=== PATIENT | female | born 1960 | race Caucasian/White ===

== ENCOUNTER 2017-02-11 06:59 | Emergency (ER) | payer MEDICAID ==
[2017-02-11] MEDS ORDERED: LORazepam 1 MG TAB PO ONE (07:03)
--- NOTE | 2017-02-11 07:05 | EDPHY ---
H & P HPI/ROS: CHIEF COMPLAINT: Anxiety HISTORY OF PRESENT ILLNESS: the patient is a 56-year-old homeless alcoholic female with a history of depression and anxiety who comes to the emergency department by EMS complaining of an anxiety attack and hyperventilation. She has had the symptoms for about 2 hours. She states that they days began bothering her last night and that she did not sleep up. She denies recent fevers or illness. She denies shortness of breath. She does complain of diffuse body cramping from the hyperventilation. She was successfully coached down by EMS and some of the symptoms improved but tend to fluctuate. She denies chest pain or abdominal pain. she does admit to drinking yesterday but denies any drug or alcohol use today. REVIEW OF SYSTEMS: Constitutional: denies: chills, fever, recent illness, recent injury EENTM: denies: blurred vision, double vision, nose congestion Respiratory: denies: cough, shortness of breath Cardiac: denies: chest pain, irregular heart rate, lightheadedness, palpitations Gastrointestinal/Abdominal: denies: abdominal pain, diarrhea, nausea, vomiting, blood streaked stools Genitourinary: denies: dysuria, frequency, hematuria, pain Musculoskeletal: denies: joint pain, muscle pain Skin: denies: lesions, rash, jaundice, bruising Neurological: denies: headache, numbness, paresthesia, tingling, dizziness, weakness Hematologic/Lymphatic: denies: blood clots, easy bleeding, easy bruising Immunologic/allergic: denies: HIV/AIDS, transplant EXAM: GENERAL: Anxious, hyperventilating, tachycardic HEAD: Atraumatic, normocephalic. EYES: Pupils equal round and reactive to light, extraocular movements intact, sclera anicteric, conjunctiva are normal. ENT: TMs normal, nares patent, oropharynx clear without exudates. Moist mucous membranes. NECK: Normal range of motion, supple without lymphadenopathy or JVD. LUNGS: Breath sounds clear to auscultation bilaterally and equal. No wheezes rales or rhonchi. HEART: Regular rate and rhythm without murmurs, rubs or gallops. ABDOMEN: Soft, nontender, normoactive bowel sounds. No guarding, no rebound. No masses appreciated. BACK: No CVA tenderness, no spinal tenderness, step-offs or deformities EXTREMITIES: Normal range of motion, no pitting or edema. No clubbing or cyanosis. NEUROLOGICAL: Cranial nerves II through XII grossly intact. Normal speech, normal gait. 5/5 strength, normal movement in all extremities, normal sensation PSYCH: a anxious SKIN: Warm, dry, normal turgor, no visible rashes or lesions. Source: Patient Exam Limitations: No limitations - Personal History Tetanus Vaccine Date: within 5 yrs - Medical/Surgical History Hx Asthma: No Hx Chronic Respiratory Disease: No Hx Diabetes: No Hx Cardiac Disease: Yes Hx Renal Disease: No Hx Cirrhosis: No Hx Alcoholism: Yes Hx HIV/AIDS: No Hx Splenectomy or Spleen Trauma: No Other PMH: PMH: [place] 10 y.a., ETOH abuse, PSYCH. PSH: C-SECT,ortho knee surg - Family History Significant Family History: No pertinent family hx - Social History Smoking Status: Current every day smoker Alcohol Use: Heavy Drug Use: Marijuana Constitutional: Initial Vital Signs Heart Rate 131 H 02/11/17 07:05 Respiratory Rate 30 H 02/11/17 07:05 Blood Pressure 172/120 H 02/11/17 07:05 O2 Sat (%) 100 02/11/17 07:05 O2 Delivery Mode Room Air Allergies/Adverse Reactions: No Known Allergies Allergy (Verified 04/06/15 12:32) Home Medications: Medication Instructions Recorded Ibuprofen [Motrin (*)] 200 mg PO DAILY PRN 12/08/15 Ibuprofen [Motrin (*)] 400 mg PO Q6 PRN #0 tab 12/09/15 LORazepam [Ativan (*)] 1 tab PO Q8 PRN #7 tab 12/09/15 Ondansetron Odt [Zofran Odt 4 mg 4 mg PO Q4 PRN #3 tab 12/09/15 (*)] Gabapentin 02/11/17 Wellbutrin Sr 02/11/17 traZODone 02/11/17 Medical Decision Making ED Course/Re-evaluation: 8:00 a.m. the patient is sleeping but arousable after 2 mg of Ativan. She is still mildly tachycardic . We will continue to hydrate. 8:25 a.m. the patient is feeling completely better. She is awake and talkative. No more hyper ventilations. No tremors. Her vital signs have normalized. She is asking to go home. I will not prescribe bursitis to take at home as IM concerned that she will mix them with alcohol. Differential Diagnosis: Partial list of the Differential diagnosis considered include but were not limited to; anxiety, alcohol withdrawal, dehydration and although unlikely based on the history and physical exam, I also considered infection, arrhythmia. I discussed these differential diagnoses and the plan with the patient as well as the usual and expected course. The patient understands that the diagnosis is provisional and that in medicine we are not always correct and that further workup is often warranted. Usual and customary warnings were given. All of the patient's questions were answered. The patient was instructed to return to the emergency department should the symptoms at all worsen or return, otherwise to followup with the physician as we discussed. - Data Points Medications Given: Discontinued Medications Sodium Chloride (Ns) 2,000 mls @ 0 mls/hr IV EDNOW ONE; Wide Open PRN Reason: Protocol Stop: 02/11/17 08:16 Last Admin: 02/11/17 07:15 Dose: 2,000 mls Lorazepam (Ativan) 2 mg PO EDNOW ONE Stop: 02/11/17 07:04 Last Admin: 02/11/17 07:20 Dose: 2 mg Departure - Departure Disposition: Home, Routine, Self-Care Clinical Impression: Anxiety Condition: Fair Instructions: Anxiety (ED) Referrals: Patient,NotPresent [Unknown] - As per Instructions [facility],. [Clinic] - As per Instructions
[2017-02-11] MEDS ORDERED: LORazepam 2 MG/ML INJ ONE (07:07)
[2017-02-11] MEDS ORDERED: NS 2,000 ML IV ONE (08:15)
[2017-02-11 08:43] VITALS: BP 95/69; PULSE 110; RESP 18; TEMP 97.7; O2SAT 98
== END 2017-02-11 08:43 | disposition home or self-care (01) ==
LOC: EDUNIT#
DX: F41.9 Anxiety disorder, unspecified (principal); I25.2 Old myocardial infarction; F17.200 Nicotine dependence, unspecified, uncomplicated
CPT/HCPCS: J2060

== ENCOUNTER 2017-02-15 15:58 | Emergency (ER) | payer MEDICAID ==
[2017-02-15 17:32] VITALS: PULSE 97
--- NOTE | 2017-02-15 17:33 | EDPHY ---
H & P Time Seen by Provider: 02/15/17 17:00 Smoking Status: Current every day smoker Constitutional: Initial Vital Signs Temperature (C) 36.4 C 02/15/17 16:05 Heart Rate 92 02/15/17 16:05 Respiratory Rate 16 02/15/17 16:05 Blood Pressure 99/64 L 02/15/17 16:05 O2 Sat (%) 97 02/15/17 16:05 O2 Delivery Mode Room Air Allergies/Adverse Reactions: No Known Allergies Allergy (Verified 02/15/17 16:03) Home Medications: Medication Instructions Recorded Ibuprofen [Motrin (*)] 200 mg PO DAILY PRN 12/08/15 Ibuprofen [Motrin (*)] 400 mg PO Q6 PRN #0 tab 12/09/15 LORazepam [Ativan (*)] 1 tab PO Q8 PRN #7 tab 12/09/15 Ondansetron Odt [Zofran Odt 4 mg 4 mg PO Q4 PRN #3 tab 12/09/15 (*)] Gabapentin 02/11/17 Wellbutrin Sr 02/11/17 MDM/Departure - MDM Imaging Results: Imaging Impressions Hand X-Ray 02/15/17 16:08 Impression: Acute minimally angulated distal fifth metacarpal fracture. Shoulder X-Ray 02/15/17 16:08 Impression: 1. Nondisplaced greater tuberosity fracture right humeral head. 2. Old/subacute distal right clavicle fracture. 3. Age indeterminate type II AC separation. - Depart Referrals: NONE *PRIMARY CARE P,. [Primary Care Provider] - As per Instructions
--- NOTE | 2017-02-15 17:45 | EDPHY ---
H & P Stated Complaint: pt punched a tree with r hand yesterday Time Seen by Provider: 02/15/17 17:00 HPI/ROS: CHIEF COMPLAINT: right hand pain, right shoulder pain HISTORY OF PRESENT ILLNESS: [id number] homeless female presents emergency department complaining of right hand pain and right shoulder pain. Patient reports yesterday she got mad and punched a tree and fell onto her shoulder. She denies head strike, no loss of consciousness, no neck pain. Patient reports pain with movement of her hand and shoulder that is not improving. Patient states she is taking Tylenol and Aleve with mild relief. She drink a shot of alcohol today to help with pain control. She denies numbness or tingling in her hand. Her primary care doctor is Dr. Hayden. REVIEW OF SYSTEMS: A comprehensive 10 point review of systems is otherwise negative aside from elements mentioned in the history of present illness. Source: Patient Exam Limitations: No limitations - Personal History Current Tetanus/Diphtheria Vaccine: Yes Tetanus Vaccine Date: within 5 yrs - Medical/Surgical History Hx Asthma: No Hx Chronic Respiratory Disease: No Hx Diabetes: No Hx Cardiac Disease: No Hx Renal Disease: No Hx Cirrhosis: No Hx Alcoholism: Yes Hx HIV/AIDS: No Hx Splenectomy or Spleen Trauma: No Other PMH: PMH: [place] 10 y.a., ETOH abuse, PSYCH. PSH: C-SECT,ortho knee surg - Social History Smoking Status: Current every day smoker Alcohol Use: Occasionally Drug Use: None - Physical Exam Exam: GEN: Awake, alert, oriented, no acute distress RESP: nl resp effort MSK: No C-spine tenderness, Right shoulder with decreased range of motion due to pain, tenderness to lateral shoulder, ecchymosis to inner arm. No elbow tenderness, no wrist tenderness, tenderness to 5th metacarpal with swelling, patient is able to make a fist, no scissoring of fingers, cap refill less than 2 seconds, sensation intact to light touch, 2+ radial pulses SKIN: No break in skin Constitutional: Initial Vital Signs Temperature (C) 36.4 C 02/15/17 16:05 Heart Rate 92 02/15/17 16:05 Respiratory Rate 16 02/15/17 16:05 Blood Pressure 99/64 L 02/15/17 16:05 O2 Sat (%) 97 02/15/17 16:05 O2 Delivery Mode Room Air Allergies/Adverse Reactions: No Known Allergies Allergy (Verified 02/15/17 16:03) Home Medications: Medication Instructions Recorded Ibuprofen [Motrin (*)] 200 mg PO DAILY PRN 12/08/15 Ibuprofen [Motrin (*)] 400 mg PO Q6 PRN #0 tab 12/09/15 LORazepam [Ativan (*)] 1 tab PO Q8 PRN #7 tab 12/09/15 Ondansetron Odt [Zofran Odt 4 mg 4 mg PO Q4 PRN #3 tab 12/09/15 (*)] Gabapentin 02/11/17 Wellbutrin Sr 02/11/17 Medical Decision Making - Diagnostics Imaging Results: Imaging Impressions Hand X-Ray 02/15/17 16:08 Impression: Acute minimally angulated distal fifth metacarpal fracture. Shoulder X-Ray 02/15/17 16:08 Impression: 1. Nondisplaced greater tuberosity fracture right humeral head. 2. Old/subacute distal right clavicle fracture. 3. Age indeterminate type II AC separation. Imaging: I viewed and interpreted images myself Procedures: A ulnar gutter Ortho Glass splint was applied. After application of the splint , I returned and re-examined the patient. The splint was adequately immobilizing the joint. The patients circulation and sensation were intact distal to the splint. ED Course/Re-evaluation: 56-year-old female presents with a boxer's fracture to right hand in greater tuberosity fracture of right shoulder. Right metacarpal fracture was manually manipulated to attain better alignment. Patient refused lidocaine for anesthesia prior to this. She tolerated it well. Patient is placed in an ulnar gutter splint and a sling. She sees Dr. Charlie Hayden at [facility]. Patient is given instructions to call Dr. Hayden 1st thing Friday morning to schedule an appointment to be seen. I have recommended rest, ice, keep splint in place, clean and dry until follow-up. Have recommended [id number] Tylenol with ibuprofen. Patient is given a Nadeau prepack. She is given strict return precautions for any numbness or tingling in her hand or arm, any new symptoms or concerns. Patient reports nausea with the pain and is requesting nausea medication. I will discharge her with a Zofran prepack. Departure - Departure Disposition: Home, Routine, Self-Care Clinical Impression: Fracture of metacarpal base of right hand, closed Qualifiers: Encounter type: initial encounter Metacarpal bone: fifth Fracture alignment: displaced Qualified Code(s): S62.316A - Displaced fracture of base of fifth metacarpal bone, right hand, initial encounter for closed fracture Fracture of greater tuberosity of humerus Qualifiers: Encounter type: initial encounter Fracture type: closed Fracture alignment: nondisplaced Laterality: right Qualified Code(s): S42.254A - Nondisplaced fracture of greater tuberosity of right humerus, initial encounter for closed fracture Condition: Good Instructions: Hydrocodone/Acetaminophen (By mouth), Boxer Fracture (ED), Proximal Humerus Fracture (ED), Ondansetron (By mouth) Additional Instructions: Keep splint on your hand, clean and dry. Wear sling. Call Dr. Hayden is office Friday morning to schedule an appointment to be seen at 1st available. Do not use your right arm. Take 600 mg of ibuprofen every 8 hours with food for 3-5 days, take 1/2 to 1 Nadeau every 4-6 hours as needed for severe pain. Return to the emergency department for any numbness or tingling in your arm, new symptoms or concerns. Referrals: Callie Hayden MD [Medical Doctor] - As per Instructions
[2017-02-15] MEDS ORDERED: ONDANSETRON DISINTEGRATING 4 MG TAB PO ONE (17:52)
[2017-02-15] MEDS ORDERED: HYDROCOD/APAP 5/325 PREPACK#6 BTL TAKEHOME ONE (17:52)
[2017-02-15] MEDS ORDERED: ONDANSETRON 4MG PREPACK#2 BTL TAKEHOME ONE (17:52)
[2017-02-15 18:22] VITALS: BP 120/90; RESP 16; TEMP 98.1; O2SAT 94
== END 2017-02-15 18:22 | disposition home or self-care (01) ==
PROC: 2W3EX1Z Immobilization of Right Hand using Splint (ICD-10-PCS; principal; 2017-02-15)
DX: S62.316A Displaced fracture of base of fifth metacarpal bone, right hand, initial encounter for closed fracture (principal); S42.254A Nondisplaced fracture of greater tuberosity of right humerus, initial encounter for closed fracture; F17.200 Nicotine dependence, unspecified, uncomplicated; I25.2 Old myocardial infarction; W18.00XA Striking against unspecified object with subsequent fall, initial encounter

== ENCOUNTER 2017-02-19 16:57 | Emergency (ER) | payer MEDICAID ==
[2017-02-19 17:06] VITALS: BP 141/99; PULSE 106; RESP 16; TEMP 98.6; O2SAT 95
--- NOTE | 2017-02-19 17:25 | EDPHY ---
H & P Stated Complaint: MED CLEAR Time Seen by Provider: 02/19/17 17:21 HPI/ROS: CHIEF COMPLAINT: Med clear for shelter HISTORY OF PRESENT ILLNESS: Patient is a 56-year-old homeless female who is brought by police for medical clearance. She was arrested today and is complaining of right arm pain. She was seen here 5 days ago and had a boxer's fracture from punching a tree and then falling down and causing a greater tuberosity fracture of her humerus. She was placed in a splint. The splint is now very torn and dirty. She is not wearing her sling. REVIEW OF SYSTEMS: Constitutional: denies: chills, fever, recent illness, recent injury EENTM: denies: blurred vision, double vision, nose congestion Respiratory: denies: cough, shortness of breath Cardiac: denies: chest pain, irregular heart rate, lightheadedness, palpitations Gastrointestinal/Abdominal: denies: abdominal pain, diarrhea, nausea, vomiting, blood streaked stools Genitourinary: denies: dysuria, frequency, hematuria, pain Musculoskeletal: See HPI Skin: denies: lesions, rash, jaundice, bruising Neurological: denies: headache, numbness, paresthesia, tingling, dizziness, weakness Hematologic/Lymphatic: denies: blood clots, easy bleeding, easy bruising Immunologic/allergic: denies: HIV/AIDS, transplant EXAM: GENERAL: Thin, disheveled HEAD: Atraumatic, normocephalic. EYES: Pupils equal round and reactive to light, extraocular movements intact, sclera anicteric, conjunctiva are normal. ENT: TMs normal, nares patent, oropharynx clear without exudates. Moist mucous membranes. NECK: Normal range of motion, supple without lymphadenopathy or JVD. LUNGS: Breath sounds clear to auscultation bilaterally and equal. No wheezes rales or rhonchi. HEART: Regular rate and rhythm without murmurs, rubs or gallops. ABDOMEN: Soft, nontender, normoactive bowel sounds. No guarding, no rebound. No masses appreciated. BACK: No CVA tenderness, no spinal tenderness, step-offs or deformities EXTREMITIES: Right shoulder with bruising but full range of motion. No tenderness. Right hand in splint that is very dirty and tangled. Neurovascular intact. NEUROLOGICAL: Cranial nerves II through XII grossly intact. Normal speech, normal gait. 5/5 strength, normal movement in all extremities, normal sensation PSYCH: Normal mood, normal affect. SKIN: Warm, dry, normal turgor, no visible rashes or lesions. Source: Patient, Police - Personal History Current Tetanus/Diphtheria Vaccine: Yes Current Tetanus Diphtheria and Acellular Pertussis (TDAP): Yes Tetanus Vaccine Date: within 5 yrs - Medical/Surgical History Hx Asthma: No Hx Chronic Respiratory Disease: No Hx Diabetes: No Hx Cardiac Disease: No Hx Renal Disease: No Hx Cirrhosis: No Hx Alcoholism: Yes Hx HIV/AIDS: No Hx Splenectomy or Spleen Trauma: No Other PMH: PMH: [place] 10 y.a., ETOH abuse, PSYCH. PSH: C-SECT,ortho knee surg - Family History Significant Family History: No pertinent family hx - Social History Smoking Status: Current every day smoker Alcohol Use: Sober Drug Use: None Constitutional: Initial Vital Signs Temperature (C) 37 C 02/19/17 17:04 Heart Rate 106 H 02/19/17 17:04 Respiratory Rate 16 02/19/17 17:04 Blood Pressure 141/99 H 02/19/17 17:04 O2 Sat (%) 95 02/19/17 17:04 O2 Delivery Mode Room Air Allergies/Adverse Reactions: No Known Allergies Allergy (Verified 02/15/17 16:03) Home Medications: Medication Instructions Recorded Ibuprofen [Motrin (*)] 200 mg PO DAILY PRN 12/08/15 Ibuprofen [Motrin (*)] 400 mg PO Q6 PRN #0 tab 12/09/15 LORazepam [Ativan (*)] 1 tab PO Q8 PRN #7 tab 12/09/15 Ondansetron Odt [Zofran Odt 4 mg 4 mg PO Q4 PRN #3 tab 12/09/15 (*)] Gabapentin 02/11/17 Wellbutrin Sr 02/11/17 Medical Decision Making Procedures: Procedure: Splint placement. A ulnar gutter splint and sling was applied. After application of the splint I returned and re-examined the patient. The splint was adequately immobilizing the joint and distal to the splint the patient's circulation and sensation was intact. ED Course/Re-evaluation: The patient has no new injuries at this time. We will replace her hand splint and shoulder sling. She understands and agrees with this plan. She will then go to shelter. Differential Diagnosis: Partial list of the Differential diagnosis considered include but were not limited to; fracture, contusion, dislocation, intoxication and although unlikely based on the history and physical exam, I also considered head injury, assault. I discussed these differential diagnoses and the plan with the patient as well as the usual and expected course. The patient understands that the diagnosis is provisional and that in medicine we are not always correct and that further workup is often warranted. Usual and customary warnings were given. All of the patient's questions were answered. The patient was instructed to return to the emergency department should the symptoms at all worsen or return, otherwise to followup with the physician as we discussed. Departure - Departure Disposition: Home, Routine, Self-Care Clinical Impression: Boxers fracture Qualifiers: Encounter type: initial encounter Fracture type: closed Qualified Code(s): S62.309A - Unspecified fracture of unspecified metacarpal bone, initial encounter for closed fracture Closed right humeral fracture Qualifiers: Encounter type: initial encounter Humerus Location: greater tuberosity Fracture alignment: nondisplaced Qualified Code(s): S42.254A - Nondisplaced fracture of greater tuberosity of right humerus, initial encounter for closed fracture Condition: Fair Instructions: Arm Fracture in Adults (ED), Boxer Fracture (ED) Additional Instructions: Medically cleared for shelter Referrals: NONE *PRIMARY CARE P,. [Primary Care Provider] - As per Instructions Raymon Garcia MD [Medical Doctor] - As per Instructions
== END 2017-02-19 17:50 | disposition home or self-care (01) ==
DX: S42.254D Nondisplaced fracture of greater tuberosity of right humerus, subsequent encounter for fracture with routine healing (principal); S62.309D Unspecified fracture of unspecified metacarpal bone, subsequent encounter for fracture with routine healing; F17.200 Nicotine dependence, unspecified, uncomplicated; I25.2 Old myocardial infarction; X58.XXXD Exposure to other specified factors, subsequent encounter
CPT/HCPCS: A4565

== ENCOUNTER 2017-03-25 00:35 | Emergency (ER) | payer MEDICAID ==
[2017-03-25] MEDS ORDERED: ONDANSETRON 4 MG/2 ML VIAL IVP ONE (00:38)
[2017-03-25] MEDS ORDERED: NS 1,000 ML IV ONE (00:39)
--- NOTE | 2017-03-25 00:43 | EDPHY ---
H & P HPI/ROS: HPI CHIEF COMPLAINT: Alcohol intoxication HISTORY OF PRESENT ILLNESS: This patient 56-year-old female, well-known to the emergency room, brought in by EMS for alcohol intoxication. EMS was called to the [facility] as she was unable to ambulate was acting irrational. She states that she had multiple alcoholic beverages to drink this evening. Upon arrival to the emergency room she is highly intoxicated smells of alcohol. She is complaining of shoulder pain and arm pain which is chronic for her. Also complains of right hand pain she states she sustained a boxer's fracture in early February. denies new pain. Upon arrival here in emergency room I did Greet her and EMS in room 7. She is highly intoxicated with alcohol smells of alcohol. Unable to ambulate at this time. Past Medical History: Alcoholism, tobacco abuse, alcohol-induced gastritis, hepatitis C, cocaine use causing an [place] Past Surgical History: No recent surgery Social History: Homeless, daily alcohol use, alcoholism Family History: Noncontributory ROS REVIEW OF SYSTEMS: A comprehensive 10 point review of systems is otherwise negative aside from elements mentioned in the history of present illness. Exam Constitutional intoxicated, smells of alcohol, triage nursing summary reviewed , vital signs reviewed, awake/alert. Eyes normal conjunctivae and sclera, EOMI, horizontal beating nystagmus consistent with acute alcohol intoxication HENT normal inspection, atraumatic, moist mucus membranes, no epistaxis, neck supple/ no meningismus, no raccoon eyes. Respiratory clear to auscultation bilaterally, normal breath sounds, no respiratory distress, no wheezing. Cardiovascular rate normal, regular rhythm, no murmur, no edema, distal pulses normal. Gastrointestinal soft, non-tender, no rebound, no guarding, normal bowel sounds, no distension, no pulsatile mass. Genitourinary no CVA tenderness. Musculoskeletal no midline vertebral tenderness, full range of motion, no calf swelling, no tenderness of extremities, no meningismus, good pulses, neurovascularly intact. Skin pink, warm, & dry, no rash, skin atraumatic. Neurologic awake, alert and oriented x 3, AAOx3, moves all 4 extremities equally, motor intact, sensory intact, CN II-XII intact, normal vision, slurring her speech Psychiatric normal mood/affect. Heme/Lymph/Immune no lymphadenopathy. Differential Diagnosis: Includes but is not limited to in a particular order acute alcohol intoxication, electrolyte disturbance, dehydration Medical Decision Making: Plan for this patient IV establishment, IV fluid bolus , check alcohol level basic lab work. Monitor for sobriety. Re-evaluation: Source: Patient, EMS - Personal History Tetanus Vaccine Date: within 5 yrs - Medical/Surgical History Hx Asthma: No Hx Chronic Respiratory Disease: No Hx Diabetes: No Hx Cardiac Disease: No Hx Renal Disease: No Hx Cirrhosis: No Hx Alcoholism: Yes Hx HIV/AIDS: No Hx Splenectomy or Spleen Trauma: No Other PMH: PMH: [place] 10 y.a., ETOH abuse, PSYCH. PSH: C-SECT,ortho knee surg - Social History Smoking Status: Current every day smoker Constitutional: Initial Vital Signs Temperature (C) 36.7 C 03/25/17 00:41 Heart Rate 98 03/25/17 00:41 Respiratory Rate 18 03/25/17 00:41 Blood Pressure 105/81 H 03/25/17 00:41 O2 Sat (%) 96 03/25/17 00:41 O2 Delivery Mode Room Air Allergies/Adverse Reactions: No Known Allergies Allergy (Verified 02/15/17 16:03) Home Medications: Medication Instructions Recorded Ibuprofen [Motrin (*)] 200 mg PO DAILY PRN 12/08/15 Ibuprofen [Motrin (*)] 400 mg PO Q6 PRN #0 tab 12/09/15 LORazepam [Ativan (*)] 1 tab PO Q8 PRN #7 tab 12/09/15 Ondansetron Odt [Zofran Odt 4 mg 4 mg PO Q4 PRN #3 tab 12/09/15 (*)] Gabapentin 02/11/17 Wellbutrin Sr 02/11/17 Medical Decision Making - Data Points Laboratory Results: Laboratory Results 03/25/17 00:48 03/25/17 00:48 03/25/17 03/25/17 03/25/17 00:48 00:48 00:48 WBC 16.38 10^3/uL H 10^3/uL (3.80-9.50) RBC 4.18 10^6/uL 10^6/uL (4.18-5.33) Hgb 14.1 g/dL g/dL (12.6-16.3) Hct 40.1 % % (38.0-47.0) MCV 95.9 fL fL (81.5-99.8) MCH 33.7 pg pg (27.9-34.1) MCHC 35.2 g/dL g/dL (32.4-36.7) RDW 14.6 % % (11.5-15.2) Plt Count 341 10^3/uL 10^3/uL (150-400) MPV 8.5 fL L fL (8.7-11.7) Neut % (Auto) 60.6 % % (39.3-74.2) Lymph % (Auto) 23.8 % % (15.0-45.0) [place] % (Auto) 13.5 % H % (4.5-13.0) Eos % (Auto) 0.6 % % (0.6-7.6) Baso % (Auto) 0.9 % % (0.3-1.7) Nucleat RBC Rel Count 0.0 % % (0.0-0.2) Absolute Neuts (auto) 9.93 10^3/uL H 10^3/uL (1.70-6.50) Absolute Lymphs (auto) 3.90 10^3/uL H 10^3/uL (1.00-3.00) Absolute Monos (auto) 2.21 10^3/uL H 10^3/uL (0.30-0.80) Absolute Eos (auto) 0.10 10^3/uL 10^3/uL (0.03-0.40) Absolute Basos (auto) 0.14 10^3/uL H 10^3/uL (0.02-0.10) Absolute Nucleated RBC 0.00 10^3/uL 10^3/uL (0-0.01) Immature Gran % 0.6 % % (0.0-1.1) Immature Gran # 0.10 10^3/uL 10^3/uL (0.00-0.10) PT 12.7 SEC SEC (12.0-15.0) INR 0.96 (0.83-1.16) APTT 24.3 SEC SEC (23.0-38.0) Sodium 131 mEq/L L mEq/L (134-144) Potassium 3.3 mEq/L L mEq/L (3.5-5.2) Chloride 92 mEq/L L mEq/L (97-110) Carbon Dioxide 25 mEq/l mEq/l (22-31) Anion Gap 14 mEq/L mEq/L (8-16) BUN 6 mg/dL L mg/dL (7-23) Creatinine 0.5 mg/dL L mg/dL (0.6-1.0) Estimated GFR > 60 Glucose 92 mg/dL mg/dL (70-100) Calcium 9.3 mg/dL mg/dL (8.5-10.4) Total Bilirubin 0.3 mg/dL mg/dL (0.1-1.4) Conjugated Bilirubin 0.3 mg/dL mg/dL (0.0-0.5) Unconjugated Bilirubin 0.0 mg/dL mg/dL (0.0-1.1) AST 55 IU/L H IU/L (14-46) ALT 37 IU/L IU/L (9-52) Alkaline Phosphatase 87 IU/L IU/L (38-126) Total Protein 6.6 g/dL g/dL (6.3-8.2) Albumin 4.0 g/dL g/dL (3.5-5.0) Lipase 206.0 IU/L IU/L (23-300) Ethyl Alcohol 274 mg/dL H mg/dL (0-10) Medications Given: Discontinued Medications Sodium Chloride (Ns) 1,000 mls @ 0 mls/hr IV ONCE ONE PRN Reason: Wide Open Stop: 03/25/17 00:40 Last Admin: 03/25/17 00:50 Dose: 1,000 mls Ondansetron HCl (Zofran) 4 mg IVP EDNOW ONE Stop: 03/25/17 00:39 Last Admin: 03/25/17 00:50 Dose: 4 mg Departure - Departure Disposition: Home, Routine, Self-Care Clinical Impression: Alcohol intoxication Qualifiers: Complication of substance-induced condition: uncomplicated Qualified Code(s): F10.920 - Alcohol use, unspecified with intoxication, uncomplicated Condition: Good Instructions: Alcohol Intoxication (ED) Referrals: Patient,NotPresent [Unknown] - As per Instructions
[2017-03-25 00:59] LABS: % IMMATURE GRANULYOCYTES 0.6 % (0.0-1.1); ADD DIFF? NO; ADD MORPH? NO; ADD SCAN? NO; ATYPICAL LYMPHOCYTE FLAG 10 (0-99); FRAGMENT RBC FLAG 0 (0-99); HEMATOCRIT 40.1 % (38.0-47.0); HEMOGLOBIN 14.1 g/dL (12.6-16.3); LEFT SHIFT FLG 0 (0-99); LIPEMIA HEMOLYSIS FLAG 90 (0-99); MEAN CELL HEMOGLOBIN 33.7 pg (27.9-34.1); MEAN CELL HEMOGLOBIN CONCENTR. 35.2 g/dL (32.4-36.7); MEAN CELL VOLUME 95.9 fL (81.5-99.8); MEAN PLATELET VOLUME 8.5 fL (8.7-11.7); PLATELET CLUMPS FLAG 0 (0-99); PLATELET COUNT 341 10^3/uL (150-400); RED BLOOD CELL COUNT 4.18 10^6/uL (4.18-5.33); RED CELL DISTRIBUTION WIDTH 14.6 % (11.5-15.2)
[2017-03-25 01:13] LABS: ALANINE AMINOTRANSFERASE 37 IU/L (9-52); ALKALINE PHOSPHATASE 87 IU/L (38-126); ANION GAP 14 mEq/L (8-16); ASPARTATE AMINOTRANSFERASE 55 IU/L (14-46); BILIRUBIN,TOTAL 0.3 mg/dL (0.1-1.4); BILIRUBIN-CONJUGATED 0.3 mg/dL (0.0-0.5); CALCIUM 9.3 mg/dL (8.5-10.4); CARBON DIOXIDE 25 mEq/l (22-31); CHLORIDE 92 mEq/L (97-110); CREATININE 0.5 mg/dL (0.6-1.0); ETHANOL SERUM 274 mg/dL (0-10); GLOMERULAR FILTRATION RATE > 60; GLUCOSE 92 mg/dL (70-100); INR 0.96 (0.83-1.16); POTASSIUM 3.3 mEq/L (3.5-5.2); PROTIME(PATIENT) 12.7 SEC (12.0-15.0); SODIUM 131 mEq/L (134-144); TOTAL PROTEIN 6.6 g/dL (6.3-8.2)
[2017-03-25 01:14] LABS: APTT 24.3 SEC (23.0-38.0)
[2017-03-25 01:44] VITALS: RESP 16
[2017-03-25] MEDS: CHLORDIAZEPOXIDE 25MG PREPK#6 BTL TAKEHOME ONE ×2 (02:31→05:13)
[2017-03-25 02:36] VITALS: BP 111/63; PULSE 81; TEMP 97.7; O2SAT 96
== END 2017-03-25 02:36 | disposition home or self-care (01) ==
LOC: EDUNIT#
DX: F10.920 Alcohol use, unspecified with intoxication, uncomplicated (principal); F17.200 Nicotine dependence, unspecified, uncomplicated
CPT/HCPCS: 96374; G0480; J2405

== ENCOUNTER 2017-03-29 00:48 | Emergency (ER) | payer MEDICAID ==
[2017-03-29] MEDS ORDERED: LORazepam 2 MG/ML INJ IVP ONE (01:02)
--- NOTE | 2017-03-29 01:02 | CPEKG ---
Heart Rate: 108 RR Interval: 556 P-R Interval: 184 QRSD Interval: 76 QT Interval: 336 QTC Interval: 451 P [place]: 72 QRS [place]: -5 T Wave [place]: 79 EKG Severity - ABNORMAL ECG - EKG Impression: SINUS TACHYCARDIA EKG Impression: NONSPECIFIC T ABNORMALITIES, ANT-LAT LEADS Electronically Signed By: Michele Sanchez 29-Mar-2017 07:06:44
[2017-03-29 01:07] LABS: % IMMATURE GRANULYOCYTES 0.6 % (0.0-1.1); ABSOLUTE IMMATURE GRANULOCYTES 0.07 10^3/uL (0.00-0.10); ADD DIFF? NO; ADD MORPH? NO; ADD SCAN? NO; ATYPICAL LYMPHOCYTE FLAG 0 (0-99); FRAGMENT RBC FLAG 0 (0-99); HEMATOCRIT 38.5 % (38.0-47.0); HEMOGLOBIN 13.3 g/dL (12.6-16.3); LEFT SHIFT FLG 0 (0-99); LIPEMIA HEMOLYSIS FLAG 90 (0-99); MEAN CELL HEMOGLOBIN 33.3 pg (27.9-34.1); MEAN CELL HEMOGLOBIN CONCENTR. 34.5 g/dL (32.4-36.7); MEAN CELL VOLUME 96.3 fL (81.5-99.8); MEAN PLATELET VOLUME 8.6 fL (8.7-11.7); PLATELET CLUMPS FLAG 0 (0-99); PLATELET COUNT 373 10^3/uL (150-400); RED CELL DISTRIBUTION WIDTH 14.6 % (11.5-15.2)
[2017-03-29 01:17] LABS: CARBON DIOXIDE 21 mEq/l (22-31); CHLORIDE 97 mEq/L (97-110); POTASSIUM 4.2 mEq/L (3.5-5.2); SODIUM 132 mEq/L (134-144)
[2017-03-29 01:18] LABS: ANION GAP 14 mEq/L (8-16); CALCIUM 9.5 mg/dL (8.5-10.4); CREATININE 0.5 mg/dL (0.6-1.0); GLOMERULAR FILTRATION RATE > 60; GLUCOSE 73 mg/dL (70-100)
[2017-03-29 01:29] LABS: TROPONIN I < 0.012 ng/mL (0-0.034)
--- NOTE | 2017-03-29 01:49 | EDPHY ---
H & P Stated Complaint: meth use this afternoon, anxiety, chest tightness since 2229 Time Seen by Provider: 03/29/17 00:54 HPI/ROS: Chief Complaint: Chest pain, anxiety HPI: 56-year-old woman with a longstanding history of chronic methamphetamine abuse, positive for hepatitis C states that she started having substernal chest pain anxiety at about 7 o'clock this evening. She states she last used meth about 2-3 this afternoon. Denies a history of similar episodes in the past however she is well known to this department with multiple presentations. Denies fevers or chills. No cough. Mild shortness of breath. No nausea or vomiting. No falls or head injuries. No recent trauma. ROS: 10 point Review of Systems is negative except as noted in the HPI. PMH: Chronic methamphetamine abuse, hepatitis-C Social History: Positive smoking, positive alcohol, positive meth use Family History: Denies family history of coronary artery disease Physical Exam: Gen: Awake, Alert, anxious appearing HEENT: Nose: no rhinorrhea Eyes: PERRLA, EOMI Mouth: Moist mucosa Neck: Supple, no JVD Chest: nontender, lungs clear to auscultation Heart: S1, S2 normal, no murmur Abd: Soft, non-tender, no guarding Back: no CVA tenderness, no midline tenderness Ext: no edema, non-tender Skin: no rash Neuro: CN II-XII intact, Sensation grossly intact, Strength 5/5 in bilateral upper and lower extremities - Personal History Current Tetanus/Diphtheria Vaccine: Yes Tetanus Vaccine Date: within 5 yrs - Medical/Surgical History Hx Asthma: No Hx Chronic Respiratory Disease: No Hx Diabetes: No Hx Cardiac Disease: No Hx Renal Disease: No Hx Cirrhosis: No Hx Alcoholism: Yes Hx HIV/AIDS: No Hx Splenectomy or Spleen Trauma: No Other PMH: PMH: [place] 10 y.a., ETOH abuse, PSYCH. PSH: C-SECT,ortho knee surg - Social History Smoking Status: Current every day smoker Constitutional: Initial Vital Signs Temperature (C) 36.7 C 03/29/17 00:59 Heart Rate 110 H 03/29/17 00:59 Respiratory Rate 24 H 03/29/17 00:59 Blood Pressure 142/116 H 03/29/17 00:59 O2 Sat (%) 98 03/29/17 00:59 O2 Delivery Mode Room Air Allergies/Adverse Reactions: No Known Allergies Allergy (Verified 02/15/17 16:03) Home Medications: Medication Instructions Recorded Ibuprofen [Motrin (*)] 400 mg PO Q6 PRN #0 tab 12/09/15 Wellbutrin Sr 02/11/17 Tylenol 03/29/17 Medical Decision Making - Diagnostics EKG Interpretation: ECG time 12:50 a.m., sinus tachycardia with a rate of 108, normal axis, normal intervals, no acute ST or T-wave abnormalities. Impression: Normal ECG. Imaging Results: Chest x-ray is negative for acute abnormality per my interpretation. Imaging: I viewed and interpreted images myself ED Course/Re-evaluation: 56-year-old woman with several hours of substernal chest pain after using methamphetamines. ECG is normal. Troponin is undetectable. Symptoms are improved after IV fluids and Ativan. She is otherwise medically cleared for discharge. She has been encouraged to discontinue using meth. - Data Points Laboratory Results: Laboratory Results 03/29/17 00:45 03/29/17 00:45 03/29/17 03/29/17 00:45 00:45 WBC 10.91 10^3/uL H 10^3/uL (3.80-9.50) RBC 4.00 10^6/uL L 10^6/uL (4.18-5.33) Hgb 13.3 g/dL g/dL (12.6-16.3) Hct 38.5 % % (38.0-47.0) MCV 96.3 fL fL (81.5-99.8) MCH 33.3 pg pg (27.9-34.1) MCHC 34.5 g/dL g/dL (32.4-36.7) RDW 14.6 % % (11.5-15.2) Plt Count 373 10^3/uL 10^3/uL (150-400) MPV 8.6 fL L fL (8.7-11.7) Neut % (Auto) 58.5 % % (39.3-74.2) Lymph % (Auto) 28.3 % % (15.0-45.0) [place] % (Auto) 11.0 % % (4.5-13.0) Eos % (Auto) 0.6 % % (0.6-7.6) Baso % (Auto) 1.0 % % (0.3-1.7) Nucleat RBC Rel Count 0.0 % % (0.0-0.2) Absolute Neuts (auto) 6.37 10^3/uL 10^3/uL (1.70-6.50) Absolute Lymphs (auto) 3.09 10^3/uL H 10^3/uL (1.00-3.00) Absolute Monos (auto) 1.20 10^3/uL H 10^3/uL (0.30-0.80) Absolute Eos (auto) 0.07 10^3/uL 10^3/uL (0.03-0.40) Absolute Basos (auto) 0.11 10^3/uL H 10^3/uL (0.02-0.10) Absolute Nucleated RBC 0.00 10^3/uL 10^3/uL (0-0.01) Immature Gran % 0.6 % % (0.0-1.1) Immature Gran # 0.07 10^3/uL 10^3/uL (0.00-0.10) Sodium 132 mEq/L L mEq/L (134-144) Potassium 4.2 mEq/L mEq/L (3.5-5.2) Chloride 97 mEq/L mEq/L (97-110) Carbon Dioxide 21 mEq/l L mEq/l (22-31) Anion Gap 14 mEq/L mEq/L (8-16) BUN 4 mg/dL L mg/dL (7-23) Creatinine 0.5 mg/dL L mg/dL (0.6-1.0) Estimated GFR > 60 Glucose 73 mg/dL mg/dL (70-100) Calcium 9.5 mg/dL mg/dL (8.5-10.4) Troponin I < 0.012 ng/mL ng/mL (0-0.034) Medications Given: Discontinued Medications Lorazepam (Ativan Injection) 2 mg IVP EDNOW ONE Stop: 03/29/17 01:03 Last Admin: 03/29/17 01:13 Dose: 1 mg Departure - Departure Disposition: Home, Routine, Self-Care Clinical Impression: Chest pain, Methamphetamine abuse Condition: Good Instructions: Chest Pain (ED), Methamphetamine Abuse (ED) Additional Instructions: Follow up with [facility] for further evaluation. Please seek help to stop using methamphetamine and other drugs. Referrals: [facility],. [Clinic] - As per Instructions
[2017-03-29 02:05] VITALS: BP 114/74; PULSE 88; RESP 16; TEMP 97.9; O2SAT 96
== END 2017-03-29 02:05 | disposition home or self-care (01) ==
LOC: EDUNIT#
DX: R07.9 Chest pain, unspecified (principal); F15.10 Other stimulant abuse, uncomplicated; F17.200 Nicotine dependence, unspecified, uncomplicated; I25.2 Old myocardial infarction
CPT/HCPCS: 96374; J2060

== ENCOUNTER 2017-04-01 16:24 | Emergency (ER) | payer MEDICAID ==
[2017-04-01 16:38] VITALS: TEMP 98.6
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
[2017-04-01 19:04] VITALS: BP 120/77; PULSE 79; RESP 16; O2SAT 95
== END 2017-04-01 19:08 | disposition home or self-care (01) ==
LOC: EDUNIT#
DX: F10.920 Alcohol use, unspecified with intoxication, uncomplicated (principal); F17.200 Nicotine dependence, unspecified, uncomplicated

== ENCOUNTER 2017-05-25 05:38 | Emergency (ER) | payer MEDICAID ==
[2017-05-25] MEDS ORDERED: OLANZapine 10 MG/2 ML VIAL IM ONE (05:45)
[2017-05-25] MEDS ORDERED: OLANZapine DISINTEGR 10 MG TAB ONE (05:46)
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
[2017-05-25 06:03] LABS: % IMMATURE GRANULYOCYTES 1.6 % (0.0-1.1); ABSOLUTE IMMATURE GRANULOCYTES 0.26 10^3/uL (0.00-0.10); ADD DIFF? NO; ADD MORPH? NO; ADD SCAN? NO; ATYPICAL LYMPHOCYTE FLAG 20 (0-99); FRAGMENT RBC FLAG 0 (0-99); HEMATOCRIT 31.6 % (38.0-47.0); HEMOGLOBIN 10.5 g/dL (12.6-16.3); LEFT SHIFT FLG 10 (0-99); LIPEMIA HEMOLYSIS FLAG 80 (0-99); MEAN CELL HEMOGLOBIN 32.9 pg (27.9-34.1); MEAN CELL HEMOGLOBIN CONCENTR. 33.2 g/dL (32.4-36.7); MEAN CELL VOLUME 99.1 fL (81.5-99.8); MEAN PLATELET VOLUME 8.4 fL (8.7-11.7); PLATELET CLUMPS FLAG 10 (0-99); PLATELET COUNT 478 10^3/uL (150-400); RED BLOOD CELL COUNT 3.19 10^6/uL (4.18-5.33); RED CELL DISTRIBUTION WIDTH 14.9 % (11.5-15.2)
[2017-05-25 06:16] LABS: ANION GAP 11 mEq/L (8-16); CALCIUM 8.8 mg/dL (8.5-10.4); CARBON DIOXIDE 25 mEq/l (22-31); CHLORIDE 99 mEq/L (97-110); CREATININE 0.4 mg/dL (0.6-1.0); ETHANOL SERUM < 10 mg/dL (0-10); GLOMERULAR FILTRATION RATE > 60; GLUCOSE 89 mg/dL (70-100); POTASSIUM 3.4 mEq/L (3.5-5.2); SALICYLATE < 1.0 mg/dL (2.0-20.0); SODIUM 135 mEq/L (134-144)
[2017-05-25] MEDS: OLANZapine DISINTEGR 10 MG TAB PO ONE (06:16)
[2017-05-25] MEDS ORDERED: OLANZapine 10 MG/2 ML VIAL ONE (06:55)
[2017-05-25] MEDS: OLANZapine 10 MG/2 ML VIAL IM ONE (06:58)
[2017-05-25] MEDS ORDERED: IBUPROFEN 600 MG TAB PO ONE (19:52)
[2017-05-25] MEDS: IBUPROFEN 600 MG TAB PO ONE (19:54)
[2017-05-26 01:26] VITALS: BP 125/87; PULSE 97; RESP 16; TEMP 98.4; O2SAT 97
== END 2017-05-26 01:27 ==
LOC: EDUNIT#
DX: R45.1 Restlessness and agitation (principal); I25.2 Old myocardial infarction; F17.200 Nicotine dependence, unspecified, uncomplicated
CPT/HCPCS: 80305; G0480

== ENCOUNTER 2017-06-05 08:50 | Emergency (ER) | payer MEDICAID ==
[2017-06-05 09:07] VITALS: BP 91/68; PULSE 104; RESP 16; TEMP 97.3; O2SAT 99
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
== END 2017-06-05 10:04 | disposition home or self-care (01) ==
LOC: EDUNIT#
PROC: 0H94XZZ Drainage of Neck Skin, External Approach (ICD-10-PCS; principal; 2017-06-05)
DX: L02.11 Cutaneous abscess of neck (principal); I25.2 Old myocardial infarction; F17.200 Nicotine dependence, unspecified, uncomplicated

== ENCOUNTER 2017-06-07 12:45 | Inpatient (IN) | payer MEDICAID ==
--- NOTE | 2017-06-07 13:00 | CPEKG ---
Heart Rate: 103 RR Interval: 583 P-R Interval: 156 QRSD Interval: 76 QT Interval: 368 QTC Interval: 482 P [place]: 17 QRS [place]: 24 T Wave [place]: 104 EKG Severity - ABNORMAL ECG - EKG Impression: SINUS TACHYCARDIA EKG Impression: NONSPECIFIC T ABNORMALITIES, ANT-LAT LEADS Electronically Signed By: Ap Alvarez 07-Jun-2017 15:27:37
[2017-06-07] MEDS ORDERED: ASPIRIN 81 MG CHEWABLE TAB PO ONE (13:01)
[2017-06-07] MEDS ORDERED: NS 500 ML IV ONE ×3 (13:01→15:50)
[2017-06-07 13:07] LABS: % IMMATURE GRANULYOCYTES 0.7 % (0.0-1.1); ABSOLUTE IMMATURE GRANULOCYTES 0.13 10^3/uL (0.00-0.10); ADD DIFF? NO; ADD MORPH? NO; ADD SCAN? NO; ATYPICAL LYMPHOCYTE FLAG 0 (0-99); FRAGMENT RBC FLAG 0 (0-99); HEMATOCRIT 34.7 % (38.0-47.0); LEFT SHIFT FLG 20 (0-99); LIPEMIA HEMOLYSIS FLAG 90 (0-99); MEAN CELL HEMOGLOBIN 33.3 pg (27.9-34.1); MEAN CELL HEMOGLOBIN CONCENTR. 34.6 g/dL (32.4-36.7); MEAN CELL VOLUME 96.4 fL (81.5-99.8); PLATELET CLUMPS FLAG 30 (0-99); PLATELET COUNT 435 10^3/uL (150-400); RED CELL DISTRIBUTION WIDTH 14.6 % (11.5-15.2)
[2017-06-07 13:23] LABS: ANION GAP 9 mEq/L (8-16); CALCIUM 8.4 mg/dL (8.5-10.4); CARBON DIOXIDE 27 mEq/l (22-31); CHLORIDE 92 mEq/L (97-110); CREATININE 0.5 mg/dL (0.6-1.0); GLOMERULAR FILTRATION RATE > 60; GLUCOSE 118 mg/dL (70-100); POTASSIUM 3.7 mEq/L (3.5-5.2); SODIUM 128 mEq/L (134-144); SPECIMEN HEMOLYSIS 121
[2017-06-07 13:32] LABS: INR 1.05 (0.83-1.16); PROTIME(PATIENT) 13.6 SEC (12.0-15.0)
[2017-06-07 13:33] LABS: APTT 26.3 SEC (23.0-38.0)
[2017-06-07 13:34] LABS: TROPONIN I 0.015 ng/mL (0.000-0.034)
[2017-06-07] MEDS ORDERED: IOPAMIDOL (ISOVUE 370) 100 ML BTL IV ONE (13:50)
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
[2017-06-07] MEDS ORDERED: IBUPROFEN 800 MG TAB PO ONE (15:13)
[2017-06-07] MEDS ORDERED: ONDANSETRON DISINTEGRATING 4 MG TAB PO PRN (15:35)
[2017-06-07] MEDS ORDERED: ACETAMINOPHEN 325 MG TAB PO PRN (15:35)
[2017-06-07] MEDS ORDERED: TEMAZEPAM 15 MG CAP PO PRN (15:35)
[2017-06-07] MEDS ORDERED: ONDANSETRON 4 MG/2 ML VIAL IVP PRN (15:35)
[2017-06-07 16:31] LABS: C-REACTIVE PROTEIN 50.2 mg/L (<10.0)
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
[2017-06-07 16:51] LABS: PROCALCITONIN 0.06 ng/mL (0.02-0.10)
[2017-06-07] MEDS: PANTOPRAZOLE SODIUM 40 MG TAB PO SCH (18:10)
[2017-06-07] MEDS: oxyCODONE IR 5 MG TAB PO PRN ×2 (18:11→23:26)
[2017-06-07] MEDS: COLCHICINE 0.6 MG CAP/TAB PO SCH ×2 (18:11→18:15)
[2017-06-07 18:18] LABS: HEMATOCRIT 33.2 % (38.0-47.0)
[2017-06-07] MEDS: IBUPROFEN 200 MG TAB PO SCH ×2 (18:51→23:24)
[2017-06-07] MEDS: SULFAMETHOX/TMP 800/160 MG 1 TAB PO SCH (20:44)
[2017-06-08] MEDS: IBUPROFEN 200 MG TAB PO SCH ×3 (05:36→18:36)
[2017-06-08 05:41] LABS: % IMMATURE GRANULYOCYTES 0.7 % (0.0-1.1); ADD DIFF? NO; ADD MORPH? NO; ADD SCAN? NO; ATYPICAL LYMPHOCYTE FLAG 0 (0-99); FRAGMENT RBC FLAG 0 (0-99); HEMATOCRIT 31.8 % (38.0-47.0); HEMOGLOBIN 10.6 g/dL (12.6-16.3); LEFT SHIFT FLG 10 (0-99); LIPEMIA HEMOLYSIS FLAG 80 (0-99); MEAN CELL HEMOGLOBIN 32.9 pg (27.9-34.1); MEAN CELL HEMOGLOBIN CONCENTR. 33.3 g/dL (32.4-36.7); MEAN CELL VOLUME 98.8 fL (81.5-99.8); MEAN PLATELET VOLUME 9.4 fL (8.7-11.7); PLATELET CLUMPS FLAG 0 (0-99); PLATELET COUNT 390 10^3/uL (150-400); RED BLOOD CELL COUNT 3.22 10^6/uL (4.18-5.33); RED CELL DISTRIBUTION WIDTH 14.6 % (11.5-15.2)
[2017-06-08 05:53] LABS: ANION GAP 11 mEq/L (8-16); CALCIUM 8.4 mg/dL (8.5-10.4); CARBON DIOXIDE 25 mEq/l (22-31); CHLORIDE 96 mEq/L (97-110); CREATININE 0.4 mg/dL (0.6-1.0); GLOMERULAR FILTRATION RATE > 60; GLUCOSE 89 mg/dL (70-100); POTASSIUM 3.3 mEq/L (3.5-5.2); SODIUM 132 mEq/L (134-144)
[2017-06-08 06:04] LABS: TROPONIN I < 0.012 ng/mL (0.000-0.034)
[2017-06-08] MEDS: SULFAMETHOX/TMP 800/160 MG 1 TAB PO SCH ×2 (08:15→20:46)
[2017-06-08] MEDS: PANTOPRAZOLE SODIUM 40 MG TAB PO SCH (08:15)
[2017-06-08] MEDS: COLCHICINE 0.6 MG CAP/TAB PO SCH ×2 (08:16→20:46)
[2017-06-08] MEDS ORDERED: POTASSIUM CL 20 MEQ TAB PO ONE (08:39)
[2017-06-08] MEDS ORDERED: NS 500 ML IV ONE ×2 (08:40→13:00)
[2017-06-08] MEDS: POTASSIUM Cl (KCl) 40 MEQ in NS 1,000 ML IV SCH ×2 (09:59→20:45)
--- NOTE | 2017-06-08 11:22 | ASMTCMCOM ---
CM Note CM Note Notes: 06/08/2017 Case Management Note: Reviewed chart, spoke w/RN. Pt admitted from [facility], officer in the room at all times. No Pt evals ordered. Case Management d/c poc: return to [facility] when medically stable. [facility] employee will transport pt at d/c. Case Management available if needs change. Date Signed: 06/08/2017 11:22 AM Electronically Signed By:Madisyn Mg RN
--- NOTE | 2017-06-08 12:06 | WOCRNPDOC ---
WOCRN Advanced Assessment Note - Skin Integrity Problem, Advanced Assess Left Lateral Pedal Foot Pressure Injury Dressing Type: AllevGrove Instruments Life Integumentary Issue Intervention: Dressing Removed Darcy Wound Tissue: Erythema, Macerated, Painful/Tender Wound Bed Color: Hartline, Yellow Wound Bed Constitution: Granulation Tissue, Loose Slough, De-roofed Purulent Blister Wound Edges: Attached, Well Defined Site Measurement - Head-to-Toe Length X Width X Depth (cm): 1.7cmx2.4cmx0.2cm Skin Integrity Problem Comment: Patient reports having a blister in this location for a while. She states that it heals and then opens up again from time to time when her shoes rub on it. Wound cleaned with NS and mechanically debrided with gauze to remove loose slough. Patient reports that it is very tender and pulled her foot away from me several times. She was easily redirectable when it was explained that keeping it clean will help it to heal and reduce the risk of infection. Plan explained to patient and questions answered. Wound care will round again late next week.
[2017-06-08] MEDS ORDERED: LORazepam 0.5 MG TAB PO ONE (13:00)
--- NOTE | 2017-06-08 13:28 | ECHO ---
[email or web address] [address] [address] Main: [phone] Fax: Transthoracic Echocardiogram Name: KARUNA STYLES MR#: [id number] Study Date: 06/08/2017 Study Time: 11:08 AM Date of : 1960 Age: 57 year(s) Height: 165.1 cm (65 in.) Weight: 39.92 kg (88 lb.) BSA: 1.4 m2 Gender: Female Examination: Echo Indication: Chest Pain, Pericarditis Image Quality: Contrast: Requested by: Maikol Brown BP: / Heart Rate: Rhythm: Indication: Chest Pain, Pericarditis Procedure Staff Shingles Roofer: Frida Zheng Reading Physician: Chito Patrick Requesting Provider: Conclusions: Normal size left ventricle. EF is 64 %. No regional wall motion abnormality. Trivial to mild mitral regurgitation. Trivial aortic valve regurgitation. Mild tricuspid regurgitation is present. Right Ventricular systolic pressure is measured at 22 mmHg. Trivial pericardial effusion (Circumferential). No evidence for pericardial tamponade. Measurements: Chambers Valvular Assessment AV/MV Valvular Assessment TV/PV Normal Normal Normal Name Value Range Name Value Range Name Value Range IVSd (2D): 1.2 cm (0.6 cm-1.1 AV meanP mmHg ( - ) TR Vmax: 1.73 mm/s ( - ) cm) MV E Vmax: 0.69 m/s ( - ) TR PGmax: 12 mmHg ( - ) LVDd (2D): 3.7 cm (3.9 cm-5.3 MV A Vmax: 0.63 m/s ( - ) syst. PAP: 22 mmHg ( - ) cm) MV E/A: 1.10 ( - ) LVDs (2D): 2.5 cm (2.1 cm-4 MV meanP mmHg ( - ) cm) LVPWd (2D): 1.1 cm ( - ) LVEF (BP): 64 % (>=55 %) RVDd(2D): 3.6 cm (1.9 cm-3.8 cmmm) Continued Measurements: Chambers Valvular Assessment AV/MV Valvular Assessment TV/PV Name Value Name Value Name Value Patient: KARUNA STYLES Study Date: 06/08/2017 Page 1 of 2 11:08 AM LADs Lon.2 cm MV DecTime: 132 m/s CVP (est.): 10 mmHg LA Area: 17.0 cm2 MV E' Septal: 0.09 m/s TAPSE: 1.2 cm MV E/E' Septal: 7.50 MV E/E' Lateral: 6.30 MV VTI: 15.10 cm Findings: Left Ventricle: Normal size left ventricle. Normal global systolic LV function. EF is 64 %. No regional wall motion abnormality. Right Ventricle: Normal size right ventricle. Normal RV function. Left Atrium: The left atrium is normal in size. Right Atrium: The right atrium is normal in size. Mitral Valve: The mitral valve is normal in appearance and function. Trivial to mild mitral regurgitation. Aortic Valve: The aortic valve is normal in appearance and function. Trivial aortic valve regurgitation. No aortic valve stenosis is present. Tricuspid Valve: The tricuspid valve is normal in appearance and function. Mild tricuspid regurgitation is present. Right Ventricular systolic pressure is measured at 22 mmHg. Pulmonic Valve: The pulmonic valve is normal in appearance and function. Aorta: The aorta is normal. IVC: The IVC is normal sized. There is greater luis 50% respiratory excursion. There is inspiratory collapse of the IVC. Pericardium: Trivial pericardial effusion (Circumferential). (No Signature Object) Patient: KARUNA STYLES Study Date: 06/08/2017 Page 2 of 2 11:08 AM [id number]
[2017-06-08] MEDS ORDERED: KETOROLAC 30 MG/1 ML SDV IVP ONE (14:53)
[2017-06-08] MEDS ORDERED: BISACODYL 10 MG SUPP PR PRN (14:54)
[2017-06-08] MEDS ORDERED: MAGNESIUM HYDROXIDE 30 ML UDCUP PO PRN (14:54)
[2017-06-08] MEDS ORDERED: POLYETHYLENE GLYCOL 3350 17 GM PKT PO PRN (14:54)
[2017-06-08] MEDS ORDERED: LACTULOSE 20 GM/30 ML UDCUP PO PRN (14:54)
[2017-06-08] MEDS ORDERED: OLANZapine DISINTEGR 5 MG TAB PO PRN (14:55)
--- NOTE | 2017-06-08 16:18 | CPEKG ---
Heart Rate: 105 RR Interval: 571 P-R Interval: 168 QRSD Interval: 80 QT Interval: 364 QTC Interval: 482 P [place]: 42 QRS [place]: -3 T Wave [place]: 92 EKG Severity - BORDERLINE ECG - EKG Impression: SINUS TACHYCARDIA EKG Impression: T ABNORMALITIES, ANT-LAT LEADS, MORE PROMINENT SINCE JUNE 07, 2017 EKG Impression: Probable left atrial abnormality Electronically Signed By: Farhan Teixeira 09-Jun-2017 06:53:36
--- NOTE | 2017-06-08 17:12 | HOSPPROG ---
Hospitalist Progress Note Assessment/Plan: Assessment: 57 yo F p/w suspected pericarditis c/b acute hypotension Plan: # Pericarditis. Acute, new problem, further w/u indicated. Suspected, based on small pericardial effusion on CTA, positional nature, and suspected viral syndrome - get Echo to eval effusion - trial toradol for pain control, cont colchicine - cont on tele # Hypotension. Acute, likely 2/2 hypovolemia from poor oral intake, as well as exacerbated by likely viral infxn - Echo to check EF - trending lactic acid - s/p 1L NS bolus, cont IVF # Suspected viral syndrome. PCT neg, will stop levofloxacin, cont IVF - monitor WBC - get Resp Viral PCR - ongoing supportive care # Hyponatremia. Acute, 2/2 hypovolemia, give NS and repeat level # Hypokalemia. Acute, 2/2 poor intake, replete w/ VF # SIRS. 2/2 viral syndrome, monitor VS/CBC - EKG w/ sinus tach, TWI V2-V3, Q III (personally interpreted) # Atelectasis. Acute, 2/2 poor mobility, IS # Pleural effusion. Unclear if 2/2 IVF vs. cap leak w/ viral infxn # Weight loss. Acute, unintentional, unclear if this is behavioral vs. pathological - dietary consult - supplements - hold on malignancy w/u at present, unless localizing sx - RF positive, PATY pending, may have underlying rheum condition Diet. Reg w/ ensure/smoothie Code. Full PPx. High risk, lovenox 40 Dispo. ADD uncertain, anticipated LOS > 48hrs for reasonable med necessity including hypotension w/ viral syndrome and suspected pericarditis, placing patient at high risk of worsening morbidity/mortality, warranting further w/u and inpatient admission status. Subjective: ongoing chest pain Objective: Vital Signs Temp Pulse Resp BP Pulse Ox 36.6 C 95 17 99/64 L 92 06/08/17 12:00 06/08/17 12:00 06/08/17 12:00 06/08/17 12:00 06/08/17 12:00 Laboratory Results 06/08/17 04:21 06/08/17 04:21 06/07/17 06/08/17 06/09/17 05:59 05:59 05:59 Intake Total 2200 1750 Output Total 2600 Balance -400 1750 PT 13.6 SEC (12.0-15.0) 06/07/17 12:55 INR 1.05 (0.83-1.16) 06/07/17 12:55 - Physical Exam Constitutional: chronically ill appearing, uncomfortable, cachectic, No not in pain (moderate) Cardiovascular: tachycardia, No systolic murmur, No irregularly irregular, No edema Respiratory: reduced air movement (left base), inspiratory crackles (bases), No expiratory wheeze, No bronchial breath sounds Gastrointestinal: normoactive bowel sounds, soft, non-tender abdomen, no palpable masses, No distension Musculoskeletal: other (no tenderness over sternum) Neurologic: AAOx3, sensation intact bilaterally, No weakness (motor 5/5 bilat) Psychiatric: not encephalopathic, thought process linear, anxious, other ( cooperative and follows commands), No agitated ICD10 Worksheet Patient Problems: Problems Problem Status Onset Pancreatitis Active Tobacco user Active Depression - Depressive disorder Active Vomiting Acute Dehydration Acute Alcoholic intoxication Acute Chest pain Acute Pericardial effusion Acute
--- NOTE | 2017-06-08 18:02 | PDMN ---
Medical Necessity Medical necessity: C/M review: est. > 2 MN LOS for eval and TX of acute hypotension with viral syndrome and suspected pericarditis at high risk of worsening morbidity and mortality, hyponatremia, hypokalemia, SIRS, atrlectasis , pleural effusion, acute and persistent cheat pain, requiring ongoing cardiac monitoring, IV fluids with electrolyte replacement, IV Levaquin, IV Toradol trial, pain management per 06/08/2017 Hospitalist progress note.
[2017-06-08] MEDS: ENOXAPARIN 40 MG/0.4 ML SYR SC SCH (18:36)
[2017-06-08] MEDS: SENNOSIDES/DOCUSATE SODIUM TAB PO SCH (20:46)
[2017-06-08] MEDS ORDERED: MELATONIN 3 MG TAB PO SCH (21:00)
[2017-06-08] MEDS ORDERED: KETOROLAC 30 MG/1 ML SDV IVP PRN (21:00)
[2017-06-09] MEDS ORDERED: PANTOPRAZOLE SODIUM 40 MG TAB PO SCH
[2017-06-09] MEDS ORDERED: COLCHICINE 0.6 MG CAP/TAB PO SCH
[2017-06-09] MEDS ORDERED: NAPROXEN SODIUM 220 MG TAB PO SCH
[2017-06-09] MEDS: IBUPROFEN 200 MG TAB PO SCH ×2 (01:20→06:24)
[2017-06-09 04:40] LABS: % IMMATURE GRANULYOCYTES 0.9 % (0.0-1.1); ABSOLUTE IMMATURE GRANULOCYTES 0.11 10^3/uL (0.00-0.10); ADD DIFF? NO; ADD MORPH? NO; ADD SCAN? NO; ATYPICAL LYMPHOCYTE FLAG 0 (0-99); FRAGMENT RBC FLAG 0 (0-99); HEMATOCRIT 31.6 % (38.0-47.0); HEMOGLOBIN 10.6 g/dL (12.6-16.3); LEFT SHIFT FLG 10 (0-99); LIPEMIA HEMOLYSIS FLAG 80 (0-99); MEAN CELL HEMOGLOBIN 33.2 pg (27.9-34.1); MEAN CELL HEMOGLOBIN CONCENTR. 33.5 g/dL (32.4-36.7); MEAN CELL VOLUME 99.1 fL (81.5-99.8); MEAN PLATELET VOLUME 8.9 fL (8.7-11.7); PLATELET CLUMPS FLAG 0 (0-99); PLATELET COUNT 358 10^3/uL (150-400); RED BLOOD CELL COUNT 3.19 10^6/uL (4.18-5.33); RED CELL DISTRIBUTION WIDTH 14.5 % (11.5-15.2)
[2017-06-09 04:55] LABS: ALANINE AMINOTRANSFERASE 22 IU/L (9-52); ALBUMIN 2.1 g/dL (3.5-5.0); ALKALINE PHOSPHATASE 87 IU/L (38-126); ANION GAP 8 mEq/L (8-16); ASPARTATE AMINOTRANSFERASE 15 IU/L (14-46); CALCIUM 8.1 mg/dL (8.5-10.4); CARBON DIOXIDE 20 mEq/l (22-31); CHLORIDE 110 mEq/L (97-110); CREATININE 0.4 mg/dL (0.6-1.0); GLOMERULAR FILTRATION RATE > 60; GLUCOSE 107 mg/dL (70-100); POTASSIUM 4.1 mEq/L (3.5-5.2); SODIUM 138 mEq/L (134-144); TOTAL PROTEIN 4.5 g/dL (6.3-8.2)
[2017-06-09 05:03] LABS: BILIRUBIN,TOTAL < 0.1 mg/dL (0.1-1.4)
[2017-06-09 08:42] VITALS: BP 90/70; RESP 18; TEMP 97.8; O2SAT 93
[2017-06-09] MEDS: POTASSIUM Cl (KCl) 40 MEQ in NS 1,000 ML IV SCH (09:08)
[2017-06-09] MEDS: SENNOSIDES/DOCUSATE SODIUM TAB PO SCH (09:08)
[2017-06-09] MEDS: COLCHICINE 0.6 MG CAP/TAB PO SCH (09:08)
[2017-06-09] MEDS: SULFAMETHOX/TMP 800/160 MG 1 TAB PO SCH (09:09)
[2017-06-09] MEDS: PANTOPRAZOLE SODIUM 40 MG TAB PO SCH (09:09)
[2017-06-09] MEDS: ENOXAPARIN 40 MG/0.4 ML SYR SC SCH (09:12)
--- NOTE | 2017-06-09 10:50 | PDDCSUM ---
Discharge Summary Discharge Summary: Full DISCHARGE SUMMARY FOLLOW-UP ITEMS: Establish outpatient primary care, PATY pending at time of discharge Perform age-appropriate malignancy screening DATE OF ADMISSION: 06/07/2017 DATE OF DISCHARGE: 06/09/2017 DISCHARGE DIAGNOSES: 1. Suspected acute pericarditis 2. Acute hypertension 3. Suspected viral syndrome 4. Acute hyponatremia 5. Acute hypokalemia 6. Systemic inflammatory response syndrome 7. Acute atelectasis 8. Acute unintentional weight loss 9. Acute pleural effusion 10. Acute metabolic acidosis CONSULTATIONS: None PROCEDURES / IMAGING: echocardiogram demonstrating no focal wall motion abnormalities, normal ejection fraction, trace pericardial effusion CT angiograms demonstrating no pulmonary embolism, pleural effusion, with atelectasis CHIEF COMPLAINT: Acute chest pain SUBJECTIVE: patient is feeling well at time of discharge, her chest pain has been successfully treated PHYSICAL EXAM ON DISCHARGE: Systolic blood pressure 90, heart rate 90, afebrile overnight, satting well on room air, lungs are slightly diminished in the bases, with some faint inspiratory crackles in the bases as well, otherwise clear to auscultation bilaterally without any wheezes, heart rhythm is regular, no murmurs rubs or gallops, no lower extremity edema, she has a small non erythematous wound with good healing on the lateral aspect of her left foot, also has a small papular crusted lesion on her posterior neck without any surrounding erythema or induration LABS ON DISCHARGE: White blood cell count 43991, hemoglobin 10.6, creatinine 0.4, potassium 4.1, CRP 50, ESR 40, respiratory viral panel negative HOSPITAL COURSE BY PROBLEM: The patient presented with acute chest pain most likely secondary to a small pericardial effusion from acute pericarditis, with likely viral precipitant, with mildly elevated inflammatory markers. The patient had a normal procalcitonin level, rendering bacterial infection very unlikely and additional antibiotics are not indicated. She was treated empirically with IV Toradol, and her discomfort improved. She will be continued on scheduled naproxen and colchicine for the next month, with additional proton pump inhibitor for GI protection. During this hospitalization, she did experience acute hypotension, most likely secondary to hypovolemia from poor oral intake, likely exacerbated by her viral infection. Echocardiogram demonstrated normal ejection fraction, she responded appropriately to IV fluids, she is currently euvolemic at time of discharge. she did initially have an elevated lactic acid level resulting in metabolic acidosis, but this cleared with IV fluids. The patient also has small pleural effusions and atelectasis on chest imaging, most likely secondary to poor mobility as well as capillary leak in the setting of viral infection. Given her hypotension, the patient was not diuresed, but rather we recommended incentive spirometer for treatment of the atelectasis, as well as treatment of her pericarditis to help her with her mobility and she will naturese. the patient does report an unintentional weight loss and is unclear whether this is behavioral versus pathological. The patient does appear to have an underlying mood and or personality disorder, and we recommend that [facility] so that she can be properly triaged accordingly in the outpatient setting. She does have an PATY which is pending at time of discharge and she should be evaluated in the outpatient setting to ensure that she has had good wound healing on her left lower extremity. DISCHARGE MEDICATIONS: Please see official discharge medication reconciliation sheet in chart continue home medications including Bactrim, increased naproxen to 500 mg twice daily, colchicine 0.6 mg twice daily, pantoprazole 40 mg daily. DISCHARGE INSTRUCTIONS: Please follow up at [facility]. TIME SPENT: Greater than 30 minutes were spent on direct patient care, as well as discharge planning and preparation.
[2017-06-09 12:07] VITALS: PULSE 85
--- NOTE | 2017-06-09 12:13 | ASMTCMCOM ---
CM Note CM Note Notes: 06/09/2017 Case Management Note: Met w/ pt. Officer present in room. Pt reports court date at 1330 today, feels it is likely she will be released from senior care today. Provided information on how to access the Coordinated Entry System for the [facility] as well as [facility] information. Pt denied need for clothing. Officer offered that senior care would provide bus pass at release. [facility] providing small quantity of medications through MAP program at Dr. Martinez's request. Pt to fill remaining prescriptions independently after d/c. Pt will d/c with officer who will transport to court. Date Signed: 06/09/2017 12:13 PM Electronically Signed By:Madisyn Mg RN
--- NOTE | 2017-06-09 13:33 | ASDISCHSUM ---
Discharge Information Plan Status:Home with No Needs Medically Cleared to Leave:06/09/2017 Discharge Date:06/09/2017 12:17 PM D/C Disposition:Law Enforcement/Court/[facility] ADT D/C Disposition:Home, Routine, Self-Care Projected Discharge Date:06/09/2017 12:17 PM Transportation at D/C: Discharge Delay Reason: Follow-Up Date:06/09/2017 12:17 PM Discharge Slot: Final Diagnosis: Placement Information Patient Contact Information Contact Name:THU Relationship:Sister Address: Work Phone: City: [facility] Phone: State/[place] Ink Code: Email: Financial Information Financial Class: Primary Plan Desc:[employer] [place] Primary Plan Number:[id number] Secondary Plan Desc: Secondary Plan Number: Assessment Information [facility] CM Progress Note CM Note CM Note Notes: 06/08/2017 Case Management Note: Reviewed chart, spoke w/RN. Pt admitted from snf, officer in the room at all times. No Pt evals ordered. Case Management d/c poc: return to snf when medically stable. [facility] employee will transport pt at d/c. Case Management available if needs change. Date Signed: 06/08/2017 11:22 AM Electronically Signed By:Madisyn Mg RN [facility] CM Progress Note CM Note CM Note Notes: 06/09/2017 Case Management Note: Met w/ pt. Officer present in room. Pt reports court date at 1330 today, feels it is likely she will be released from snf today. Provided information on how to access the Coordinated Entry System for the [facility] as well as [facility] information. Pt denied need for clothing. Officer offered that snf would provide bus pass at release. [facility] providing small quantity of medications through MAP program at Dr. Martinez's request. Pt to fill remaining prescriptions independently after d/c. Pt will d/c with officer who will transport to court. Date Signed: 06/09/2017 12:13 PM Electronically Signed By:Madisyn Mg RN Intervention Information Intervention Type:*Incorrect Registration Date of Service:06/07/2017 03:23 PM Patient Type:Observation Staff Member:LAMBERT Reynolds Shelly Hours:0.25 Discipline: Severity:1 (0-1 Hours) Comment:Registered inpatient; admit order writ ten observation status.
== END 2017-06-09 12:17 | DRG 315 ==
LOC: EDUNIT# → INTOOBSV 15:13 → F2W 15:13 → OBSVTOIN 06-08 17:02
PROVIDERS: ADMIT Student in an Organized Health Care Education/Training Program; ATTEND Internal Medicine
DX: I30.9 Acute pericarditis, unspecified (principal); J90 Pleural effusion, not elsewhere classified; J98.11 Atelectasis; E87.1 Hypo-osmolality and hyponatremia; I95.9 Hypotension, unspecified; E87.6 Hypokalemia; B34.9 Viral infection, unspecified; D47.3 Essential (hemorrhagic) thrombocythemia; T63.301A Toxic effect of unspecified spider venom, accidental (unintentional), initial encounter; F10.21 Alcohol dependence, in remission; R91.1 Solitary pulmonary nodule; R63.4 Abnormal weight loss; J44.9 Chronic obstructive pulmonary disease, unspecified; B19.20 Unspecified viral hepatitis C without hepatic coma; F41.8 Other specified anxiety disorders; I25.2 Old myocardial infarction; Z59.0 Homelessness
CPT/HCPCS: 97165-GO; G0378; J1650; J1885; J1956; Q9967

== ENCOUNTER 2017-07-14 10:45 | Inpatient (IN) | payer MEDICAID ==
[2017-07-14] MEDS ORDERED: VANCOMYCIN HCL/NORMAL SALINE 250 ML IV ONE (11:19)
--- NOTE | 2017-07-14 11:26 | EDPHY ---
H & P Time Seen by Provider: 07/14/17 11:00 HPI/ROS: HPI Leg swelling, feels weak. 57-year-old female. She has a history of frequent visits to our emergency department. She has an extensive past medical history and she is homeless. She reports that she has had swelling in both her feet and ankles up to her knees worsening over the last week. She reports that she is unable to walk now because of pain associated with this swelling. She reports that the left foot ankle and leg are worse than the right side. She reports that she has open ulcerations on the left foot and ankle. She reports that she has had intermittent fevers. ROS: Constitutional: No fever, no chills. No weakness. Eyes: No discharge. No changes in vision. ENT: No sore throat. No nasal congestion or rhinorrhea. Respiratory: No cough. No shortness of breath. Cardiac: No chest pain, no palpitations. Gastrointestinal: No abdominal pain, no vomiting, no diarrhea. Genitourinary: No hematuria. No dysuria or increased frequency with urination. Musculoskeletal: No back pain. No neck pain. As above. Skin: No rashes. As above. Neurological: No headache. No focal weakness or altered sensation. Past medical history: Depression, anxiety, alcohol abuse, homeless, COPD, hepatitis-C, recent history of pericarditis. Social history: Smoker. Alcohol abuse. She states she is currently sober. Homeless. Physical Exam: General Appearance: Alert, she does not appear to be in distress. This patient is responding to questions appropriately and in full sentences. This patient generally appears well-hydrated and well-nourished. Eyes: Pupils equal and round no pallor or injection. No lid edema, erythema or injection. ENT, Mouth: Mucous membranes are moist. The pharyngeal tissues are unremarkable. No edema or swelling. No asymmetry suggestive of abscess. No erythema or exudates. Respiratory: There are no retractions, lungs are clear to auscultation anteriorly with good air movement bilaterally. Cardiovascular: Regular rate and rhythm. No murmur. Gastrointestinal: Abdomen is soft and nontender, no masses, bowel sounds normal. No focal tenderness at McBurney's point. No Millan sign. Neurological: Motor sensory function is grossly intact. Cranial nerves are normal. Gait is normal. Skin: Warm and dry, she has symmetrical 2+ pitting edema in the bilateral lower extremities from the feet through the ankles and up to the knees. She has what appears to be a venous stasis dermatitis involving both feet and ankles and lower legs with associated erythema. The left side however appears worse and a right side. She has Quarter size ulcerations involving the lateral aspect of the left foot at the 5th metatarsal phalangeal joint, over the lateral aspect of the right posterior heel and the lateral malleolus. The erythema on this side is more warm to touch. It spreads diffusely from her leg up through the lateral aspect of her right knee and involves the right lateral and anterior distal thigh. Musculoskeletal: Neck is supple and nontender. Extremities are symmetrical except noted above. All joints range without pain or impingement. Psychiatric: No agitation. No depression. Database: EKG: EKG time is 12:36 p.m.; EKG shows a narrow complex normal sinus rhythm with a ventricular rate of 91. Borderline left ventricular hypertrophy. The MT, QRS, QT intervals are within normal limits. There are no ST-T wave changes indicative of ischemic or injury pattern. No evidence of right heart strain. Interpreted by me. Imaging: Bilateral lower extremity Doppler ultrasounds to evaluate for DVT: no evidence of DVT. Randall's cyst noted on right, reactive lymphadenopathy left side groin. Results are discussed with staff radiologist Dr. Tariq Castellanos. Procedures: Emergency department course: IV was placed. Vital signs reviewed and are within normal limits. She is afebrile. My suspicion is a venous stasis dermatitis with associated cellulitis involving the left foot and ankle and associated pressure ulcerations to the left foot. She will also be evaluated for lower extremity edema. Blood cultures will be drawn. She will be started on IV vancomycin. 12:30 p.m., sepsis protocol initiated secondary to heart rate greater than 90, leukocytosis and suspected left lower extremity cellulitis. 12:40 p.m., venous lactate is 1.9. Patient is currently receiving IV antibiotics. Awaiting results of lower extremity ultrasounds. Hospitalist paged. 12:45 p.m., discussed case with hospitalist. Patient accepted for admission. She does not meet criteria for severe sepsis. Patient's remaining emergency department course under my care unremarkable. She was admitted to the hospitalist service in stable condition. Differential Diagnosis: The differential diagnosis on this patient includes but is not limited to item lower extremity venous stasis dermatitis, lower extremity edema, left lower extremity pressure ulcerations, left lower extremity cellulitis, heart failure, nephrotic syndrome, liver failure. This represents a partial list of diagnoses considered. These considerations are based on history, physical exam, past history, reassessment and diagnostic testing. Smoking Status: Current every day smoker Constitutional: Initial Vital Signs Temperature (C) 36.5 C 07/14/17 10:47 Heart Rate 94 07/14/17 10:47 Respiratory Rate 16 07/14/17 10:47 Blood Pressure 104/71 07/14/17 10:47 O2 Sat (%) 99 07/14/17 10:47 O2 Delivery Mode Room Air Allergies/Adverse Reactions: No Known Allergies Allergy (Verified 05/25/17 05:54) Home Medications: Medication Instructions Recorded Gabapentin [Neurontin 300 MG (*)] 300 mg PO BID 07/14/17 Naproxen 500 mg PO BID PRN 07/14/17 Medical Decision Making - Data Points Laboratory Results: Laboratory Results 07/14/17 11:37 07/14/17 11:37 Medications Given: Acetaminophen (Tylenol) 650 mg PO Q4HRS PRN PRN Reason: Pain, Mild/Fever, Can Take PO Stop: 01/10/18 12:42 Last Admin: 07/15/17 08:01 Dose: 650 mg Enoxaparin Sodium (Lovenox) 40 mg SC DAILY KYLAH Stop: 01/11/18 08:59 Last Admin: 07/15/17 08:02 Dose: 40 mg Gabapentin (Neurontin) 300 mg PO BID KYLAH Stop: 01/10/18 20:59 Last Admin: 07/15/17 08:01 Dose: 300 mg Lorazepam (Ativan Injection) 1 mg IVP Q4HRS PRN PRN Reason: Agitation Stop: 01/10/18 12:44 Last Admin: 07/15/17 10:29 Dose: 1 mg Nicotine (Nicoderm Cq) 21 mg TD DAILY KYLAH Stop: 01/11/18 10:14 Last Admin: 07/15/17 10:25 Dose: 21 mg Thiamine HCl (Vitamin B-1) 100 mg PO DAILY KYLAH Stop: 01/11/18 08:59 Last Admin: 07/15/17 08:01 Dose: 100 mg Discontinued Medications Chlordiazepoxide HCl (Librium) 25 mg PO TID KYLAH Stop: 01/10/18 12:44 Last Admin: 07/14/17 16:34 Dose: Not Given Vancomycin/Sodium Chloride (Vancomycin 1 Gm (Premix)) 250 mls @ 250 mls/hr IV EDNOW ONE PRN Reason: Protocol Stop: 07/14/17 12:18 Last Admin: 07/14/17 13:04 Dose: 250 mls Sodium Chloride (Ns) 1,000 mls @ 3,000 mls/hr IV ONCE ONE Stop: 07/14/17 13:02 Last Admin: 07/14/17 13:07 Dose: 1,000 mls Thiamine HCl 500 mg/ Sodium (Chloride) 105 mls @ 210 mls/hr IV ONCE ONE Stop: 07/14/17 13:16 Last Admin: 07/14/17 15:50 Dose: 105 mls Departure - Departure Disposition: [facility] Acute Clinical Impression: Left leg cellulitis, Lower extremity edema
[2017-07-14 11:51] LABS: % IMMATURE GRANULYOCYTES 0.5 % (0.0-1.1); ABSOLUTE IMMATURE GRANULOCYTES 0.09 10^3/uL (0.00-0.10); ADD DIFF? NO; ADD MORPH? NO; ADD SCAN? NO; ATYPICAL LYMPHOCYTE FLAG 10 (0-99); FRAGMENT RBC FLAG 0 (0-99); HEMATOCRIT 37.7 % (38.0-47.0); HEMOGLOBIN 12.9 g/dL (12.6-16.3); LEFT SHIFT FLG 10 (0-99); LIPEMIA HEMOLYSIS FLAG 90 (0-99); MEAN CELL HEMOGLOBIN 31.7 pg (27.9-34.1); MEAN CELL HEMOGLOBIN CONCENTR. 34.2 g/dL (32.4-36.7); MEAN CELL VOLUME 92.6 fL (81.5-99.8); MEAN PLATELET VOLUME 9.4 fL (8.7-11.7); PLATELET CLUMPS FLAG 10 (0-99); PLATELET COUNT 262 10^3/uL (150-400); RED BLOOD CELL COUNT 4.07 10^6/uL (4.18-5.33); RED CELL DISTRIBUTION WIDTH 15.2 % (11.5-15.2)
[2017-07-14 12:04] LABS: ALANINE AMINOTRANSFERASE 53 IU/L (9-52); ALKALINE PHOSPHATASE 153 IU/L (38-126); ANION GAP 13 mEq/L (8-16); ASPARTATE AMINOTRANSFERASE 31 IU/L (14-46); BILIRUBIN,TOTAL 0.4 mg/dL (0.1-1.4); BILIRUBIN-CONJUGATED 0.3 mg/dL (0.0-0.5); BILIRUBIN-UNCONJUGATED 0.1 mg/dL (0.0-1.1); CALCIUM 8.9 mg/dL (8.5-10.4); CARBON DIOXIDE 26 mEq/l (22-31); CHLORIDE 94 mEq/L (97-110); CREATININE 0.5 mg/dL (0.6-1.0); GLOMERULAR FILTRATION RATE > 60; GLUCOSE 74 mg/dL (70-100); POTASSIUM 3.5 mEq/L (3.5-5.2); SODIUM 133 mEq/L (134-144); TOTAL PROTEIN 6.2 g/dL (6.3-8.2)
[2017-07-14 12:13] LABS: TROPONIN I < 0.012 ng/mL (0.000-0.034)
--- NOTE | 2017-07-14 12:37 | CPEKG ---
Heart Rate: 91 RR Interval: 659 P-R Interval: 191 QRSD Interval: 76 QT Interval: 348 QTC Interval: 429 P [place]: 61 QRS [place]: 23 T Wave [place]: 51 EKG Severity - ABNORMAL ECG - EKG Impression: SINUS RHYTHM EKG Impression: CONSIDER LEFT VENTRICULAR HYPERTROPHY EKG Impression: ANTERIOR Q WAVES, POSSIBLY DUE TO LVH Electronically Signed By: Ap Alvarez 14-Jul-2017 15:33:27
[2017-07-14] MEDS ORDERED: NS 1,000 ML IV ONE (12:43)
[2017-07-14] MEDS ORDERED: ONDANSETRON 4 MG/2 ML VIAL IVP PRN (12:43)
[2017-07-14] MEDS ORDERED: ONDANSETRON DISINTEGRATING 4 MG TAB PO PRN (12:43)
[2017-07-14] MEDS ORDERED: chlordiazePOXIDE 25 MG CAP PO SCH (12:45)
[2017-07-14] MEDS ORDERED: THIAMINE HCL 500 MG in NS 100 ML IV ONE (12:47)
[2017-07-14 12:54] LABS: COLOR PALE YELLOW; LEUKOCYTE ESTERASE,URINE NEGATIVE (NEGATIVE); NITRITE,URINE NEGATIVE (NEGATIVE)
[2017-07-14 12:56] LABS: BILIRUBIN,TOTAL 0.6 mg/dL (0.1-1.4)
[2017-07-14 12:59] LABS: MUCUS TRACE /lpf (NONE-1+)
[2017-07-14 13:12] LABS: ETHANOL SERUM < 10 mg/dL (0-10)
--- NOTE | 2017-07-14 14:50 | GHP ---
[f rep st] HISTORY AND PHYSICAL DATE OF ADMISSION: 07/14/2017 CHIEF COMPLAINT: Lower extremity swelling and erythema. HISTORY OF PRESENT ILLNESS: A 57-year-old female with a history of alcohol abuse and COPD who presen ts with 10 days of progressing lower extremity edema with associated erythema. The patient describes subjective fevers and chills. Pain of the bilateral lower extremities keeping her from comfortably walking on the day of presentation which prompted her presentation to the ED for evaluation. The pat ient denies any associated abdominal pain, nausea, vomiting, diarrhea. Denies any dysuria, denies he maturia. Denies chest pain, palpitations, or shortness of breath. The patient had a recent hospital ization in May of 2017 where she was diagnosed with pericarditis, discharged on colchicine and an ti inflammatories which she did not take because she could not read the prescription. PAST MEDICAL HISTORY: 1. Alcohol abuse. 2. COPD. 3. Hepatitis C. SOCIAL HISTORY: Patient currently lives with a friend. Reports she quit alcohol recently. Smokes d aily near a pack per day. Denies any illicit drugs or marijuana. FAMILY HISTORY: Positive for heart disease. ADVANCED DIRECTIVES: Patient is full code, full tube. Her sister, Ирина, would be her medical decisi on maker. REVIEW OF SYSTEMS: A 10-point review of systems is negative with the exception of that reported in t he HPI. PHYSICAL EXAMINATION: VITAL SIGNS: Blood pressure 105/77, heart rate 90, respiratory rate 16, 94% o n room air, temperature 36.9. GENERAL: This is a thin appearing middle-aged female lying with her he ad covered in bed. HEENT: Notable for dry mucous membranes. Eye exam is negative for any icterus. CARDIAC: Patient is regular rate and rhythm. PULMONARY: Clear to auscultation bilaterally. GASTR OINTESTINAL: Positive bowel sounds. ABDOMEN: Thin and soft, nontender to palpation. MUSCULOSKELET AL: Notable for 3+ pitting lower extremity edema to the knee. SKIN: Notable for deep red discolora tion of bilateral lower extremities extending from the dorsum with lateral wounds on the left foot wi thout active purulence. No blistering is noted. No other skin abnormalities are appreciated. NEURO LOGIC: She is alert and oriented x3. No tremor is appreciated. PSYCHIATRIC: She is disagreeable o n interview and examination. DATA: White count 18.4, recent baselines appear to be 12-14, hemoglobin 12.9, hematocrit 37.7. Sodi um 133, baseline normal, creatinine 0.5. BNP is 2580. Alkaline phosphatase 153, ALT 53. EKG, which I personally reviewed and interpreted, shows sinus rhythm, normal axis, normal intervals, there are T-wave inversions V1, V2, otherwise no acute ST-T changes. ASSESSMENT AND PLAN: This is a 57-year-old female with a history of alcohol abuse presenting with lo wer extremity swelling and erythema. 1. Acute cellulitis of the bilateral lower extremity with associated wounds of the lateral left foot . Will initiate vancomycin secondary to the wounds that are present in addition to the cellulitis. Blood cultures were obtained from the emergency department. We will have Wound Care see the patient to evaluate the injuries on the lateral side of her foot. Will follow her clinical course on IV vanc omycin,. 2. Lower extremity edema. Unclear to us if it is solely related to the active cellulitis or if it m ay somehow be related to the elevated BMP. The patient did have a recent hospitalization with perica rditis. Will check a transthoracic echocardiogram to look at systolic function and the pericardium. Will not initiate diuretics at this time as we believe the patient is actually hypovolemic from her acute infection and subjective fevers and chills. 3. History of alcohol abuse. Patient swears she is not actively drinking. Her admission blood alco hol level is negative. Will place the CIWA for monitoring but not schedule any benzodiazepines at th is time. 4. Chronic obstructive pulmonary disease secondary to tobacco abuse. The patient is clear on lung e xam and saturating well on room air. Will simply follow her clinical course. 5. Prophylaxis with Lovenox. 6. Diet: Regular. 7. Recent suspected viral pericarditis. The patient was discharged on medications and did not succe ssfully take these at disposition. We will be imaging her heart secondary to her elevated BNP for be tter understanding of her cardiac status post untreated pericarditis. DISPOSITION: I expect greater than 2 midnights as the patient is presenting with a bilateral celluli tis that requires IV antibiotics and monitoring. I have discussed the case with the emergency room physician. Patient will be triaged to the medical- surgical floor for care. /[id number]/MODL
[2017-07-14] MEDS ORDERED: NON-FORMULARY NEW DRUG (Naproxen [Naproxen] 500 MG) PO PRN (15:28)
[2017-07-14] MEDS ORDERED: NAPROXEN 500 MG PO PRN (15:40)
--- NOTE | 2017-07-14 16:02 | ECHO ---
[email or web address] [address] Main: [phone] Fax: Transthoracic Echocardiogram Name: KARUNA STYLES MR#: [id number] Study Date: 07/14/2017 Study Time: 02:17 PM Date of : 1960 Age: 57 year(s) Height: 162.6 cm (64 in.) Weight: 44.91 kg (99 lb.) BSA: 1.45 m2 Gender: Female Examination: Echo Indication: elevated BNP, recent pericarditis Image Quality: Adequate Contrast: Requested by: Daniella Reis BP: / Heart Rate: Rhythm: Indication: elevated BNP, recent pericarditis Procedure Staff Hybrid Tester: Nataly Flores Reading Physician: Dali Leung Requesting Provider: Conclusions: Normal size left ventricle. No LV hypertrophy. Normal global systolic LV function. EF is 67 %. No regional wall motion abnormality. Grade 1 diastolic dysfunction (abnormal relaxation). Normal size right ventricle. Normal RV function. There is mild thickening of the mitral valve leaflets. There is mild prolapse of the posterior leaflet of the mitral valve. Moderate mitral valve regurgitation is present. Mild tricuspid regurgitation is present. Right ventricular systolic pressure measures 30mmHg. No pericardial effusion. Compared with 06/08/2017 MR has progressed to moderate. Previous trivial pericardial effusion has resolved Measurements: Chambers Valvular Assessment AV/MV Valvular Assessment TV/PV Normal Normal Normal Name Value Range Name Value Range Name Value Range Ao Brenda (MM): 2.8 cm (2.2 cm-3.7 AV Vmax: 0.95 m/s (1 m/s-1.7 TR Vmax: 2.50 mm/s ( - ) cm) m/s) TR PGmax: 25 mmHg ( - ) IVSd (2D): 0.9 cm (0.6 cm-1.1 AV maxP mmHg ( - ) syst. PAP: 30 mmHg ( - ) cm) LVOT Vmax: 0.80 m/s (0.7 m/s-1.1 PV Vmax: 0.54 m/s (0.6 m/s-0.9 LVDd (2D): 4.3 cm (3.9 cm-5.3 m/s) m/s) cm) MV E Vmax: 0.73 m/s ( - ) PV PGmax: 1 mmHg ( - ) LVDs (2D): 2.4 cm (2.1 cm-4 MV A Vmax: 0.90 m/s ( - ) cm) MV E/A: 0.81 ( - ) LVPWd (2D): 0.7 cm ( - ) Patient: KARUNA STYLES Study Date: 07/14/2017 Page 1 of 2 02:17 PM LVEF (BP): 67 % (>=55 %) Continued Measurements: Chambers Valvular Assessment TV/PV Name Value Name Value LADs Lon.2 cm CVP (est.): 5 mmHg LA Area: 16.8 cm2 LA Volume: 46 ml LA Volume Index: 31.7 ml/m2 RA Area: 13.0 cm2 Additional Vessels Name Value Ao Ascendin.1 cm Findings: Left Ventricle: Normal size left ventricle. No LV hypertrophy. Normal global systolic LV function. EF is 67 %. No regional wall motion abnormality. Grade 1 diastolic dysfunction (abnormal relaxation). Right Ventricle: Normal size right ventricle. Normal RV function. Left Atrium: The left atrium is normal in size. Right Atrium: The right atrium is normal in size. Mitral Valve: There is mild thickening of the mitral valve leaflets. There is mild prolapse of the posterior leaflet of the mitral valve.No mitral stenosis is present. Moderate mitral valve regurgitation is present. Aortic Valve: The aortic valve is tri-leaflet. No aortic valve stenosis is present. Trivial to mild aortic valve regurgitation. Tricuspid Valve: The tricuspid valve appears normal. Mild tricuspid regurgitation is present. Right ventricular systolic pressure measures 30mmHg. Pulmonic Valve: The pulmonic valve is normal in appearance and function. Mild pulmonic valve regurgitation is noted. Aorta: Normal size aortic root measuring 2.8 cm. Normal size ascending aorta measuring 3.1 cm. Pericardium: No pericardial effusion. (No Signature Object) Patient: KARUNA STYLES Study Date: 07/14/2017 Page 2 of 2 02:17 PM [id number]
--- NOTE | 2017-07-14 16:27 | WOCRNPDOC ---
[facility] Advanced Assessment Note - Skin Integrity Problem, Advanced Assess Sacrum Dressing Type: Allevyn Life Darcy Wound Tissue: Blanching, Erythema Skin Integrity Problem Comment: No pressure injury present. All skin intact and blanching. Left Lateral Distal Foot Dressing Type: Open to Air Darcy Wound Tissue: Macerated Wound Bed Color: Black, Brown Wound Bed Constitution: Dried Exudate, Mixed Loose & Adhered Slough/Eschar Site Measurement - Head-to-Toe Length X Width X Depth (cm): 1.8p4tpieyiy Pressure Injury Stage: Unstageable Pressure Injury Present on Admit: Yes Skin Integrity Problem Comment: Unknown etiology but there is a high likelyhood that this is a pressure injury. Per patient's report from her last admission her shoe puts pressure on this area and causes breakdown. Wound care will round again later this week. Left Lateral Proximal Foot Dressing Type: Open to Air Darcy Wound Tissue: Macerated Wound Bed Constitution: Granulation Tissue Site Measurement - Head-to-Toe Length X Width X Depth (cm): 1.7x1.5x0.3 Pressure Injury Stage: Stage 3 Pressure Injury Present on Admit: Yes Skin Integrity Problem Comment: Again, unclear etiology but likely pressure component highly present. Left Lateral Ankle Dressing Type: Open to Air Exudate Amount: None Wound Bed Constitution: Smooth Tissue (50%), Unstable Eschar (50%) Wound Edges: Attached Site Measurement - Head-to-Toe Length X Width X Depth (cm): 1.5x2.4xraised eschar Pressure Injury Stage: Unstageable Pressure Injury Present on Admit: Yes Bilateral Finger Dressing Type: Open to Air Skin Integrity Problem Comment: Deep fissures present with dirt in most finger tips and along some of the phalanges. Clean well with soap and water and apply atractain cream. Bilateral Heel Dressing Type: Open to Air Skin Integrity Problem Comment: Deep fissures present with dirt in fissures. Clean well with soap and water and apply atractain cream. Left Fifth Finger Dressing Type: Open to Air Wound Bed Constitution: Dried Exudate, Unstable Eschar Site Measurement - Head-to-Toe Length X Width X Depth (cm): 0.6x0.9xeschar Skin Integrity Problem Comment: Wound of unknown etiology. Patient uncooperative during exam and hid under the blanket. May apply silvasorb and bandaid if patient allows.
[2017-07-14] MEDS: GABAPENTIN 300 MG CAP PO SCH (22:57)
[2017-07-14] MEDS: ACETAMINOPHEN 325 MG TAB PO PRN (23:21)
[2017-07-15 05:53] LABS: % IMMATURE GRANULYOCYTES 0.8 % (0.0-1.1); ABSOLUTE IMMATURE GRANULOCYTES 0.13 10^3/uL (0.00-0.10); ADD DIFF? NO; ADD MORPH? NO; ADD SCAN? NO; ATYPICAL LYMPHOCYTE FLAG 0 (0-99); FRAGMENT RBC FLAG 0 (0-99); HEMATOCRIT 32.8 % (38.0-47.0); LEFT SHIFT FLG 20 (0-99); LIPEMIA HEMOLYSIS FLAG 80 (0-99); MEAN CELL HEMOGLOBIN 31.3 pg (27.9-34.1); MEAN CELL HEMOGLOBIN CONCENTR. 33.5 g/dL (32.4-36.7); MEAN CELL VOLUME 93.2 fL (81.5-99.8); MEAN PLATELET VOLUME 9.6 fL (8.7-11.7); PLATELET CLUMPS FLAG 10 (0-99); PLATELET COUNT 255 10^3/uL (150-400); RED BLOOD CELL COUNT 3.52 10^6/uL (4.18-5.33); RED CELL DISTRIBUTION WIDTH 15.4 % (11.5-15.2)
[2017-07-15 06:09] LABS: ANION GAP 6 mEq/L (8-16); CALCIUM 8.3 mg/dL (8.5-10.4); CARBON DIOXIDE 29 mEq/l (22-31); CHLORIDE 98 mEq/L (97-110); CREATININE 0.4 mg/dL (0.6-1.0); GLOMERULAR FILTRATION RATE > 60; GLUCOSE 108 mg/dL (70-100); MAGNESIUM 1.6 mg/dL (1.6-2.3); POTASSIUM 3.6 mEq/L (3.5-5.2); SODIUM 133 mEq/L (134-144)
[2017-07-15] MEDS: GABAPENTIN 300 MG CAP PO SCH ×2 (08:01→21:08)
[2017-07-15] MEDS: THIAMINE HCL 100 MG TAB PO SCH (08:01)
[2017-07-15] MEDS: ACETAMINOPHEN 325 MG TAB PO PRN ×2 (08:01→16:15)
[2017-07-15] MEDS: ENOXAPARIN 40 MG/0.4 ML SYR SC SCH (08:02)
--- NOTE | 2017-07-15 10:20 | ASMTCASEMG ---
Living Arrangements What is your living Answers: With Other (Not Family) arrangement? Who do you live with? Type Of Residence What kind of residence do Answers: House you live in? Discharge Plan Comments Coordination Status Comments Notes: Pt is a 57 y/o female admitted for lower extremity cellulitis and edema with a hx of ETOH. CM met w/ pt for dispo planning. Pt reports that she has been sober for 3 months. Pt reports that she is currently staying w/ a friend. PT/OT have been ordered and awaiting recommendations. Pt reports that she does not think she will be able to work w/ therapies today due to her swelling. Needs are TBD at this time. CM to follow. Plan: TBD; pending therapies Date Signed: 07/15/2017 10:19 AM Electronically Signed By:JOSUE Art
[2017-07-15] MEDS: NICOTINE 21 MG/24 HR PATCH TD SCH (10:25)
[2017-07-15] MEDS: LORazepam 2 MG/ML INJ IVP PRN (10:29)
--- NOTE | 2017-07-15 10:35 | HOSPPROG ---
Hospitalist Progress Note Assessment/Plan: DIAGNOSES: -cellulitis of leg, with bilateral foot wounds and severe bilateral leg edema as causes -bilateral leg edema, severe, caused by malnutrition, mitral regurgitation, question potentially liver disease as well -severe protein calorie malnutrition with cachexia -history of alcoholism, sober x3 months; I do not think she is having any alcohol withdrawal and will stop monitoring for that -tobacco abuse, anxiety to to tobacco withdrawal at this time -recent viral pericarditis, appears resolved at this time -COPD, stable at this time -hepatitis C PLANS: -continue current antibiotics, follow cultures -elevation of legs, low-salt diet, Brad stockings around the clock -Lasix diuresis -greater than 10 minutes spent today on tobacco cessation counseling -low-salt diet, and have recommended a low-salt nutrition supplement be started here -discontinue CIWA at this time -DVT prophylaxis SUBJECTIVE: No change in how her leg feels or in the swelling at this time Nose chills or sweats Fairly anxious from not smoking OBJECTIVE Vitals reviewed: T-max 37.5degrees, some tachycardia today but vitals otherwise stable Exam: alert oriented only mildly anxious, no tremor or confusion She is quite cachectic skin warm dry color ok resps not labored lungs clear BSs heart regular abd soft nondistended nontender, bowel sounds present limbs warm, severe edema from mid calf down to the distal feet, still cellulitis little change from yesterday iv site ok Echocardiogram ejection fraction 67%, moderate mitral regurgitation, no significant pulmonary hypertension Doppler imaging of legs with no DVT Objective: Vital Signs Temp Pulse Resp BP Pulse Ox 37 C 103 H 14 105/67 97 07/15/17 07:08 07/15/17 07:08 07/15/17 07:08 07/15/17 07:08 07/15/17 07:08 Laboratory Results 07/15/17 04:22 07/15/17 04:22 07/14/17 07/15/17 07/16/17 06:59 06:59 06:59 Intake Total 1250 Output Total 300 Balance 950 - Time Spent With Patient Time Spent with Patient: greater than 35 minutes Time Spent with Patient: Greater than 35 minutes spent on this patients care, greater than 50% of time spent counseling, educating, and coordinating care regarding the above mentioned plan. ICD10 Worksheet Patient Problems: Problems Problem Status Onset Left leg cellulitis Acute Lower extremity edema Acute Depression - Depressive disorder Active Pancreatitis Active Tobacco user Active Alcoholic intoxication Acute Chest pain Acute Dehydration Acute Pericardial effusion Acute Vomiting Acute
--- NOTE | 2017-07-15 12:00 | PDMN ---
Medical Necessity Medical necessity: est los>2mn for acute cellulitis BLE's w/associated wounds L lateral foot, LE edema r/t cellulitis vs elevated BNP; admit for IV abx, monitoring, follow cx; comorbid COPD, hx etoh abuse and recent viral pericarditis; per order and H&P
[2017-07-15] MEDS: VANCOMYCIN 500 MG in D5W 100 ML IV SCH (13:31)
[2017-07-15] MEDS ORDERED: POLYETHYLENE GLYCOL 3350 17 GM PKT PO PRN (15:41)
[2017-07-15] MEDS ORDERED: MAGNESIUM HYDROXIDE 30 ML UDCUP PO PRN (15:41)
[2017-07-15] MEDS ORDERED: LACTULOSE 20 GM/30 ML UDCUP PO PRN (15:41)
[2017-07-15] MEDS ORDERED: BISACODYL 10 MG SUPP PR PRN (15:41)
[2017-07-15] MEDS: CALCIUM CARBONATE 500 MG CHEWABLE TAB PO PRN (16:03)
[2017-07-15] MEDS: SENNOSIDES/DOCUSATE SODIUM TAB PO SCH (22:18)
[2017-07-16] MEDS: CALCIUM CARBONATE 500 MG CHEWABLE TAB PO PRN ×3 (01:09→15:13)
[2017-07-16] MEDS: GABAPENTIN 300 MG CAP PO SCH ×3 (01:14→20:58)
[2017-07-16 05:56] LABS: MAGNESIUM 1.5 mg/dL (1.6-2.3)
[2017-07-16] MEDS: THIAMINE HCL 100 MG TAB PO SCH (09:35)
[2017-07-16] MEDS: SENNOSIDES/DOCUSATE SODIUM TAB PO SCH ×3 (09:35→21:03)
[2017-07-16] MEDS: NICOTINE 21 MG/24 HR PATCH TD SCH (09:35)
[2017-07-16] MEDS: ENOXAPARIN 40 MG/0.4 ML SYR SC SCH (09:35)
--- NOTE | 2017-07-16 10:34 | ASMTCMCOM ---
CM Note CM Note Notes: CM met w/ pt for dispo planning. PT/OT are recommending SNF. Pt is agreeable to going to rehab and would like CM to make referral to [facility]. Pt reports that she is a smoker and would prefer to go to a smoking facility. CM faxed a referral to [facility]. CM completed ULTC-100 and faxed attached it to [employer]. CM faxed ULTC-100 to [facility]. CM left a msg w/ Ramirez at [facility] and requested a call back to get a time frame on when the special inspector will come out to meet w/ pt. CM to follow. Date Signed: 07/16/2017 10:34 AM Electronically Signed By:JOSUE Art
[2017-07-16] MEDS: VANCOMYCIN 500 MG in D5W 100 ML IV SCH (12:38)
--- NOTE | 2017-07-16 14:35 | ASMTCMCOM ---
CM Note CM Note Notes: DMITRI received a call back from Ramirez from [facility]. Greta Lin will be coming out to assess pt. Her phone number is [phone]. She has until Friday to come assess pt for rehab eligibility. CM to follow. Date Signed: 07/16/2017 02:34 PM Electronically Signed By:JOSUE Art
[2017-07-16] MEDS: ACETAMINOPHEN 325 MG TAB PO PRN ×2 (15:16→20:58)
[2017-07-16] MEDS ORDERED: CALCIUM CARBONATE 500 MG CHEWABLE TAB PO PRN (16:37)
[2017-07-16] MEDS ORDERED: FUROSEMIDE 20 MG TAB PO ONE (16:40)
[2017-07-16] MEDS: PANTOPRAZOLE SODIUM 40 MG TAB PO SCH (17:19)
--- NOTE | 2017-07-16 17:29 | HOSPPROG ---
Hospitalist Progress Note Assessment/Plan: DIAGNOSES: -cellulitis of leg, with bilateral foot wounds and severe bilateral leg edema as causes -bilateral leg edema, severe, caused by malnutrition, mitral regurgitation, question potentially liver disease as well -severe protein calorie malnutrition with cachexia -history of alcoholism, sober x3 months; I do not think she is having any alcohol withdrawal and will stop monitoring for that -tobacco abuse, anxiety to to tobacco withdrawal at this time -recent viral pericarditis, appears resolved at this time -COPD, stable at this time -hepatitis C PLANS: -continue current antibiotics, follow cultures -elevation of legs, low-salt diet, Brad stockings around the clock -Lasix diuresis -low-salt diet, and have recommended a low-salt nutrition supplement be started here -DVT prophylaxis SUBJECTIVE: Still some pain in her leg, no fever symptoms Still some anxiety OBJECTIVE Vitals reviewed: Now without fever, still slightly tachycardic otherwise stable Exam: alert oriented only mildly anxious, no tremor or confusion She is quite cachectic skin warm dry color ok resps not labored lungs clear BSs heart regular abd soft nondistended nontender, bowel sounds present limbs warm, severe edema from mid calf down to the distal feet, still cellulitis little change from yesterday iv site ok Objective: Vital Signs Temp Pulse Resp BP Pulse Ox 36.8 C 101 H 14 118/69 95 07/16/17 15:32 07/16/17 15:32 07/16/17 15:32 07/16/17 15:32 07/16/17 15:32 Laboratory Results 07/15/17 04:22 07/15/17 04:22 07/15/17 07/16/17 07/17/17 06:59 06:59 06:59 Intake Total 1250 2150 Output Total 300 1005 Balance 950 1145 ICD10 Worksheet Patient Problems: Problems Problem Status Onset Left leg cellulitis Acute Lower extremity edema Acute Depression - Depressive disorder Active Pancreatitis Active Tobacco user Active Alcoholic intoxication Acute Chest pain Acute Dehydration Acute Pericardial effusion Acute Vomiting Acute
[2017-07-16] MEDS: LORazepam 2 MG/ML INJ IVP PRN (20:57)
[2017-07-17] MEDS: VANCOMYCIN 500 MG in D5W 100 ML IV SCH ×2 (01:59→12:51)
[2017-07-17 05:47] LABS: ADD DIFF? YES; ADD MORPH? NO; ADD SCAN? NO; ATYPICAL LYMPHOCYTE FLAG 30 (0-99); FRAGMENT RBC FLAG 0 (0-99); HEMATOCRIT 33.2 % (38.0-47.0); HEMOGLOBIN 11.4 g/dL (12.6-16.3); LEFT SHIFT FLG 40 (0-99); LIPEMIA HEMOLYSIS FLAG 90 (0-99); MEAN CELL HEMOGLOBIN 31.2 pg (27.9-34.1); MEAN CELL HEMOGLOBIN CONCENTR. 34.3 g/dL (32.4-36.7); MEAN PLATELET VOLUME 9.1 fL (8.7-11.7); PLATELET CLUMPS FLAG 0 (0-99); PLATELET COUNT 343 10^3/uL (150-400); RED BLOOD CELL COUNT 3.65 10^6/uL (4.18-5.33); RED CELL DISTRIBUTION WIDTH 14.9 % (11.5-15.2)
[2017-07-17 06:00] LABS: ANION GAP 11 mEq/L (8-16); CALCIUM 8.1 mg/dL (8.5-10.4); CARBON DIOXIDE 27 mEq/l (22-31); CHLORIDE 95 mEq/L (97-110); CREATININE 0.4 mg/dL (0.6-1.0); GLOMERULAR FILTRATION RATE > 60; GLUCOSE 94 mg/dL (70-100); MAGNESIUM 1.6 mg/dL (1.6-2.3); POTASSIUM 3.5 mEq/L (3.5-5.2); SODIUM 133 mEq/L (134-144)
[2017-07-17 07:27] LABS: PLATELET ESTIMATE ADEQUATE (ADEQ)
[2017-07-17] MEDS: SENNOSIDES/DOCUSATE SODIUM TAB PO SCH ×2 (07:58→20:38)
[2017-07-17] MEDS: NICOTINE 21 MG/24 HR PATCH TD SCH (07:59)
[2017-07-17] MEDS: PANTOPRAZOLE SODIUM 40 MG TAB PO SCH (07:59)
[2017-07-17] MEDS: THIAMINE HCL 100 MG TAB PO SCH (07:59)
[2017-07-17] MEDS: GABAPENTIN 300 MG CAP PO SCH ×2 (07:59→20:38)
[2017-07-17] MEDS: ENOXAPARIN 40 MG/0.4 ML SYR SC SCH (07:59)
[2017-07-17] MEDS: ACETAMINOPHEN 325 MG TAB PO PRN ×3 (10:43→20:37)
[2017-07-17] MEDS ORDERED: FUROSEMIDE 20 MG/2 ML VIAL IVP ONE (10:56)
[2017-07-17] MEDS: LORazepam 2 MG/ML INJ IVP PRN ×2 (11:07→20:38)
--- NOTE | 2017-07-17 11:53 | HOSPPROG ---
Hospitalist Progress Note Assessment/Plan: DIAGNOSES: -cellulitis of leg, with bilateral foot wounds and severe bilateral leg edema as causes -bilateral leg edema, severe, caused by malnutrition, mitral regurgitation, question potentially liver disease as well -severe protein calorie malnutrition with cachexia -history of alcoholism, sober x3 months; I do not think she is having any alcohol withdrawal and will stop monitoring for that -tobacco abuse, anxiety to to tobacco withdrawal at this time -recent viral pericarditis, appears resolved at this time -COPD, stable at this time -hepatitis C PLANS: -will CT scan her left foot just to be certain there is not deep abscess or other concerning issue there -continue current antibiotics, follow cultures -elevation of legs, low-salt diet, Brad stockings around the clock -further Lasix diuresis -low-salt diet, and have recommended a low-salt nutrition supplement be started here -DVT prophylaxis SUBJECTIVE: Still some pain in her leg and foot upon standing, but while in bed or seated the pain is improving; no fever symptoms Still some anxiety related to her PST, unchanged OBJECTIVE Vitals reviewed: Now without fever, notably less tachycardic otherwise stable Exam: alert oriented, fairly anxious, no tremor or confusion She is quite cachectic skin warm dry color ok resps not labored lungs clear BSs heart regular abd soft nondistended nontender, bowel sounds present limbs warm, edema is notably less today still edema at ankles and feet, cellulitis improved from yesterday, however there is a 3 x 4 cm area on the distal dorsal foot with more persistent and in fact worsening erythema and swelling suggesting potential for a deeper soft tissue abscess though I cannot definitely feel fluctuance; wounds unchanged iv site ok Objective: Vital Signs Temp Pulse Resp BP Pulse Ox 36.5 C 97 16 131/77 H 98 07/17/17 08:00 07/17/17 08:00 07/17/17 08:00 07/17/17 08:00 07/17/17 08:00 Laboratory Results 07/17/17 04:38 07/17/17 04:38 07/16/17 07/17/17 07/18/17 06:59 06:59 06:59 Intake Total 2150 500 Output Total 1005 2000 Balance 1145 -1500 - Time Spent With Patient Time Spent with Patient: greater than 35 minutes Time Spent with Patient: Greater than 35 minutes spent on this patients care, greater than 50% of time spent counseling, educating, and coordinating care regarding the above mentioned plan. ICD10 Worksheet Patient Problems: Problems Problem Status Onset Left leg cellulitis Acute Lower extremity edema Acute Depression - Depressive disorder Active Pancreatitis Active Tobacco user Active Alcoholic intoxication Acute Chest pain Acute Dehydration Acute Pericardial effusion Acute Vomiting Acute
[2017-07-17] MEDS ORDERED: IOPAMIDOL (ISOVUE-300) 100 ML BTL ONE (12:13)
--- NOTE | 2017-07-17 13:10 | WOCRNPDOC ---
WOCRN Advanced Assessment Note - Skin Integrity Problem, Advanced Assess Left Lateral Distal Foot Dressing Type: Evergig Life Integumentary Issue Intervention: Dressing Changed, Silver Gel Applied Darcy Wound Tissue: Erythema Wound Bed Color: Brown, [place] Wound Bed Constitution: Smooth Tissue, Mixed Loose & Adhered Slough/Eschar ( softening) Pressure Injury Stage: Unstageable Pressure Injury Present on Admit: Yes Skin Integrity Problem Comment: Dried scab now softening with treatment. Attempted to mechanically debride with NS and gauze but patient did not tolerate. Will continue with current treatment and round again next week. Left Lateral Proximal Foot Dressing Type: ESCAPESwithYOU Integumentary Issue Intervention: Dressing Changed, Silver Gel Applied Darcy Wound Tissue: Erythema Wound Bed Constitution: Granulation Tissue, Loose Slough Wound Edges: Attached, Well Defined Pressure Injury Stage: Stage 3 Pressure Injury Present on Admit: Yes (patient states from shoes) Skin Integrity Problem Comment: Cleaned with NS and gauze. Patient c/o pain but tolerated minimal mechanical debridement to remove loose yellow slough. Continue with current plan. Wound care will round early next week. Left Lateral Ankle Dressing Type: ESCAPESwithYOU Integumentary Issue Intervention: Dressing Changed, Silver Gel Applied Darcy Wound Tissue: Erythema Wound Bed Constitution: Mixed Loose & Adhered Slough/Eschar Pressure Injury Stage: Unstageable Pressure Injury Present on Admit: Yes (from shoes) Skin Integrity Problem Comment: Area cleaned with NS and gauze. Attempted mechanical debridement but patient did not tolerate. Attached scab softening with current treatment. Will continue with current plan. Wound care will round again next week.
--- NOTE | 2017-07-17 15:59 | ASMTCMCOM ---
CM Note CM Note Notes: Today Lupe from [facility] confirmed that Pt. is accepted to [facility]. Lupe visited Pt. today in her room and Pt. wants to go there as well. Pt. interested in going to a place where she can smoke outside. Plan for d/c to [facility]. Await approval from [facility]. Greta Lin is contact . Date Signed: 07/17/2017 03:58 PM Electronically Signed By:Dora Jordan LCSW
[2017-07-18] MEDS: VANCOMYCIN 500 MG in D5W 100 ML IV SCH (02:24)
[2017-07-18] MEDS: LORazepam 2 MG/ML INJ IVP PRN ×4 (05:12→22:07)
[2017-07-18] MEDS: ACETAMINOPHEN 325 MG TAB PO PRN ×4 (05:13→22:06)
[2017-07-18 08:00] VITALS: RESP 16
[2017-07-18] MEDS: GABAPENTIN 300 MG CAP PO SCH ×2 (09:17→22:06)
[2017-07-18] MEDS: ENOXAPARIN 40 MG/0.4 ML SYR SC SCH (09:17)
[2017-07-18] MEDS: NICOTINE 21 MG/24 HR PATCH TD SCH (09:17)
[2017-07-18] MEDS: SENNOSIDES/DOCUSATE SODIUM TAB PO SCH ×2 (09:18→22:18)
[2017-07-18] MEDS: PANTOPRAZOLE SODIUM 40 MG TAB PO SCH (09:18)
[2017-07-18] MEDS: THIAMINE HCL 100 MG TAB PO SCH (09:18)
--- NOTE | 2017-07-18 11:21 | CPEKG ---
Heart Rate: 106 RR Interval: 566 P-R Interval: 164 QRSD Interval: 76 QT Interval: 320 QTC Interval: 425 P [place]: 82 QRS [place]: 76 T Wave [place]: 82 EKG Severity - BORDERLINE ECG - EKG Impression: SINUS TACHYCARDIA EKG Impression: BORDERLINE T ABNORMALITIES, ANT-LAT LEADS Electronically Signed By: Jerry Hall 19-Jul-2017 13:23:26
[2017-07-18] MEDS ORDERED: VANCOMYCIN 750 MG in D5W 150 ML IV SCH (14:00)
--- NOTE | 2017-07-18 17:09 | HOSPPROG ---
Hospitalist Progress Note Assessment/Plan: DIAGNOSES: -cellulitis of leg, with bilateral foot wounds and severe bilateral leg edema as causes -bilateral leg edema, severe, caused by malnutrition, mitral regurgitation, question potentially liver disease as well -severe protein calorie malnutrition with cachexia -anxiety due to PTSD and claustrophobia -history of alcoholism, sober x3 months; I do not think she is having any alcohol withdrawal and will stop monitoring for that -tobacco abuse, anxiety to to tobacco withdrawal at this time -recent viral pericarditis, appears resolved at this time -COPD, stable at this time -hepatitis C chronic PLANS: -continue current antibiotics, follow cultures -elevation of legs, low-salt diet, Brad stockings around the clock -further Lasix diuresis -low-salt diet, and have recommended a low-salt nutrition supplement be started here -DVT prophylaxis At this point the patient is becoming increasingly anxious and claustrophobic by being in the hospital given her PTSD. I had long discussion with her. She would like very much to go home at this time. However with a bacteria growing in blood culture that is not of certain identity, it is hard to know with certain what would be the right antibiotic to send her with. I talked to her at length and we have agreed that she will stay here tonight and will recheck culture tomorrow and make choice about antibiotic therapy going on from this time. I had 3 visits with her today and extensive discussion of her medical diagnoses treatment plans and her anxiety issues SUBJECTIVE: Less pain overall, no fevers edema is less Anxiety is increasing in severity due to her PTSD and claustrophobia, and she is having increasingly difficult interactions with nursing staff OBJECTIVE Vitals reviewed: No fever, notably less tachycardic otherwise stable Exam: alert oriented, fairly anxious, no tremor or confusion She is quite cachectic skin warm dry color ok resps not labored lungs clear BSs heart regular abd soft nondistended nontender, bowel sounds present limbs warm, edema is notably less today still edema at ankles and feet, cellulitis improved from yesterday, however there is a 3 x 4 cm area on the distal dorsal foot with more persistent and in fact worsening erythema and swelling suggesting potential for a deeper soft tissue abscess though I cannot definitely feel fluctuance; wounds unchanged iv site ok Laboratory data: 1 of her blood culture bottles from admission is growing a Gram-positive pleomorphic filemon; this is most likely contaminate but will wait for the final identification of the organism Objective: Vital Signs Temp Pulse Resp BP Pulse Ox 37.1 C 108 H 16 104/61 95 07/18/17 15:39 07/18/17 15:39 07/18/17 15:39 07/18/17 15:39 07/18/17 15:39 Laboratory Results 07/17/17 04:38 07/17/17 04:38 07/17/17 07/18/17 07/19/17 06:59 06:59 06:59 Intake Total 500 1160 500 Output Total 2000 800 Balance -1500 360 500 - Time Spent With Patient Time Spent with Patient: greater than 35 minutes Time Spent with Patient: Greater than 35 minutes spent on this patients care, greater than 50% of time spent counseling, educating, and coordinating care regarding the above mentioned plan. ICD10 Worksheet Patient Problems: Problems Problem Status Onset Left leg cellulitis Acute Lower extremity edema Acute Depression - Depressive disorder Active Pancreatitis Active Tobacco user Active Alcoholic intoxication Acute Chest pain Acute Dehydration Acute Pericardial effusion Acute Vomiting Acute
--- NOTE | 2017-07-18 17:16 | ASMTCMCOM ---
CM Note CM Note Notes: SWer met w/ Pt. several times today to work to descalate her behavior. Pt. angry today that the nurses and aides "aren't doing their jobs" and she began throwing things around the room in a fit. After some ten minutes sitting together, Pt. deescalated and was able to communicate her feelings and struggles. Pt. w/ significant trauma history. Later in the day, Pt. did well behaviorally during the [facility] assessment with Greta Delia (Pt. asked SWer to attend). Greta indicated that Pt. would be approved, but report will not be ready until Friday or Friday. Did not think that PASRR would trigger. After Greta left, Pt. became agitated again and began throwing things around the room again. SWer not in danger of injury. Pt. then stated there was no reason for her to stay in hospital for a long period of time just to go to a place she doesn't know. Pt. may leave AMA before Friday/ Friday. Pt. lives with a roomate, Jesus, who Pt. describes as having dementia. Pt. often goes hungry, but knows how to get food, but "doesn't want to go where homeless people are". Pt. is approved to go to [facility] when [facility] approval is complete. Date Signed: 07/18/2017 05:16 PM Electronically Signed By:Dora Jordan LCSW
[2017-07-19] MEDS ORDERED: VANCOMYCIN 750 MG in D5W 150 ML IV SCH
[2017-07-19] MEDS: IBUPROFEN 600 MG TAB PO PRN ×2 (01:11→08:22)
[2017-07-19] MEDS: ACETAMINOPHEN 325 MG TAB PO PRN ×2 (06:10→10:26)
[2017-07-19] MEDS: LORazepam 2 MG/ML INJ IVP PRN ×2 (06:10→10:26)
[2017-07-19 07:11] VITALS: BP 112/65; PULSE 98; TEMP 97.6; O2SAT 98
[2017-07-19] MEDS: NICOTINE 21 MG/24 HR PATCH TD SCH (08:20)
[2017-07-19] MEDS: THIAMINE HCL 100 MG TAB PO SCH (08:20)
[2017-07-19] MEDS: PANTOPRAZOLE SODIUM 40 MG TAB PO SCH (08:20)
[2017-07-19] MEDS: GABAPENTIN 300 MG CAP PO SCH (08:20)
[2017-07-19] MEDS: ENOXAPARIN 40 MG/0.4 ML SYR SC SCH (08:21)
[2017-07-19] MEDS: SENNOSIDES/DOCUSATE SODIUM TAB PO SCH (08:23)
--- NOTE | 2017-07-19 12:24 | PDDCSUM ---
Discharge Summary Discharge Summary: DISCHARGE DIAGNOSES: -cellulitis of leg, with bilateral foot wounds and severe bilateral leg edema as causes -bilateral leg edema, severe, caused by malnutrition, mitral regurgitation, question potentially liver disease as well -severe protein calorie malnutrition with cachexia -anxiety due to PTSD and claustrophobia -history of alcoholism, sober x3 months; I do not think she is having any alcohol withdrawal and will stop monitoring for that -tobacco abuse, anxiety to to tobacco withdrawal at this time -nonsteroidal anti-inflammatory drug-induced gastropathy -recent viral pericarditis, appears resolved at this time -COPD, stable at this time -hepatitis C chronic HOSPITAL COURSE SUMMARY: This patient has chronic bilateral leg edema came in with some chronic foot wounds on her left foot having developed redness swelling pain and fever. She had an obvious cellulitis but there was no evidence of abscess or osteomyelitis on exam or imaging studies. Blood cultures were obtained but did not grow a specific organism. There is a g positive filemon that is felt to be a contaminant and 1 blood culture bottle. She was treated with vancomycin here as well as wound care, elevation and diuretics to reduce her edema. She had very good response although it was somewhat slow. At this time she still has a open wounds but this cellulitis is resolved. There been no complications. During her hospital stay here she did have some dyspepsia probably related to ongoing use of nonsteroidal anti-inflammatories that she took at home. These were discontinued and she was started on proton pump inhibitor and though symptoms improved dramatically. There is no sign of bleeding. At this point is felt that she could treat this with H2 ben as long she is not on nonsteroidal anti-inflammatories. In addition she did have quite a bit of anxiety to to PTSD and we used both behavioral and environmental measures as well as some medication to help her with that here. PENDING TEST RESULTS: None MEDICATION CHANGES: Addition of Keflex 500 mg four times daily Discontinuation of nonsteroidal anti-inflammatories Addition of Pepcid 20 mg twice daily FOLLOW-UP PLAN: We are arranging for her to follow up in the outpatient wound care clinic and she has a follow-up appointment at the [facility] in 6 days Greater than 35 minutes bedside and care coordination time todayDISCHARGE DIAGNOSES:
--- NOTE | 2017-07-19 12:43 | ASMTCMCOM ---
CM Note CM Note Notes: Pt. also needed referral to wound care clinic per Dr. Wade. Dr. Farhan Kaiser suggested contacting Clara Millan via email to get an appointment on the weekend. Emailed [facility] and cc'ed to Dr. Wade and CM Employee Benefits Administrator Karely Lechuga. Gave Pt's roomate's number for contacting her since Pt. no longer has a phone . Date Signed: 07/19/2017 12:42 PM Electronically Signed By:Dora Jordan LCSW
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
== END 2017-07-19 12:36 | disposition home or self-care (01) | DRG 602 ==
LOC: F3E 13:54
PROVIDERS: ADMIT Hospitalist; ATTEND Hospitalist
DX: L03.115 Cellulitis of right lower limb (principal); L03.116 Cellulitis of left lower limb; E43 Unspecified severe protein-calorie malnutrition; F43.10 Post-traumatic stress disorder, unspecified; Z59.0 Homelessness; J44.9 Chronic obstructive pulmonary disease, unspecified; B19.20 Unspecified viral hepatitis C without hepatic coma; F17.210 Nicotine dependence, cigarettes, uncomplicated
CPT/HCPCS: 97116-GP; 97163-GP; 97166-GO; 97530-GP; 97535-GO; G0480; J1650; J1940; J2060; J3370; J3411; Q9967

== ENCOUNTER 2017-07-24 18:35 | Emergency (ER) | payer MEDICAID ==
[~2017-07-24 18:35] MED LIST: CEPHALEXIN 500 MG CAP PO SCH
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
[2017-07-24 20:31] VITALS: BP 117/74; PULSE 84; RESP 18; TEMP 98.6; O2SAT 94
== END 2017-07-24 20:28 | disposition home or self-care (01) ==
LOC: EDBD → EDUNIT#
DX: Z76.0 Encounter for issue of repeat prescription (principal); I87.2 Venous insufficiency (chronic) (peripheral); I25.2 Old myocardial infarction; F17.200 Nicotine dependence, unspecified, uncomplicated

== ENCOUNTER 2017-07-29 05:05 | Emergency (ER) | payer MEDICAID ==
[2017-07-29 05:56] VITALS: BP 140/84; PULSE 97; RESP 20; TEMP 98.6; O2SAT 98
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
== END 2017-07-29 06:07 | disposition home or self-care (01) ==
DX: F41.9 Anxiety disorder, unspecified (principal); F17.200 Nicotine dependence, unspecified, uncomplicated

== ENCOUNTER 2017-08-01 01:58 | Emergency (ER) | payer MEDICAID ==
[2017-08-01 02:10] VITALS: RESP 20
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
[2017-08-01 06:43] VITALS: BP 141/73; PULSE 102; TEMP 97.9; O2SAT 98
== END 2017-08-01 06:43 | disposition home or self-care (01) ==
LOC: EDUNIT#
DX: F41.9 Anxiety disorder, unspecified (principal); F17.200 Nicotine dependence, unspecified, uncomplicated

== ENCOUNTER 2017-09-11 18:18 | Inpatient (IN) | payer MEDICAID ==
--- NOTE | 2017-09-11 19:43 | EDPHY ---
General - History Smoking Status: Current every day smoker Narrative: CHIEF COMPLAINT: Left finger infection HISTORY OF PRESENT ILLNESS: Patient complains of infection to the left finger. Started approximately 6 days ago. It was at the distal portion of the finger at the time. She was seen at her primary care physician, N[facility]ia "3 or 4 days ago." They started her on Keflex 500 mg every 6 hr. She has been taking this as prescribed with no improvement. It is severely painful, 10/10. Unable to bend or straighten the finger. It is red, warm to the touch and does have some "white puss." No trauma or injury. No other associated complaints or modifying factors. Right- hand dominant. NPO status: Soup and bread at 12:00 p.m.. Biscuits at 5:00 p.m. REVIEW OF SYSTEMS: Ten systems reviewed and are negative unless otherwise noted in the HPI PCP: [facility] SPECIALISTS: None PAST MEDICAL HISTORY: Denies any ongoing medical diagnoses. PAST SURGICAL HISTORY: No recent surgeries SOCIAL HISTORY: Daily smoker. Occasional alcohol use. Denies any illicit substance. Specifically denies IV drug abuse FAMILY HISTORY: Noncontributory EXAMINATION General Appearance: Alert, no distress, unkempt Head: normocephalic, atraumatic Eyes: Pupils equal and round, no conjunctival pallor or injection ENT, Mouth: Mucous membranes moist. Airway patent Neck: Normal inspection, supple, non-tender Respiratory: No retractions or distress. Cardiovascular: Regular rate. Symmetric radial pulses 2+. Brisk cap refill on all 5 fingers of the left hand. Neurological: A&O, nonfocal, interossei strength symmetric. Skin: Warm and dry. There is erythema and warmth to the entire left ring finger distal to the MCP joint. There is fluctuance underneath the skin of the distal phalanx and middle phalanx. There is no spontaneous drainage. No petechiae. No cyanosis or pallor. Extremities: Left ring finger is exquisitely tender to palpation. Unable to range the PIP or DIP with passive or active range of motion. Carrying angle slight flexion of the finger. Range of motion of the remainder fingers is symmetric to the right hand. Psychiatric: Mood and affect normal DIFFERENTIAL DIAGNOSES: Including but not limited to septic joint, tenosynovitis, abscess, cellulitis, osteomyelitis, phelon, paronychia MDM: 7:45 p.m. Infection of the left ring finger from the MCP joint distally. There is some fluctuance over the middle and distal phalanges. There is no range of motion at the PIP or DIP. Possible septic joint considered. Possible osteomyelitis. I have ordered laboratory studies an x-ray of the finger. I will discuss with Dr. Guadalupe prior to hand consultation. 7:[address] Guadalupe has evaluated the patient. Case discussed with Dr. Coleman. He will admit the patient to his service. Hand surgery consultation is pending at this time. 8:05 p.m. Case discussed with the hand PA (Lady). She will discuss with Dr. Dodson and call me back. 8:30 p.m. Laboratory studies revealed leukocytosis with elevated sedimentation rate. X- ray pending. 9:10 p.m. X-ray has been read as consistent with osteomyelitis. I discussed with Dr. Guadalupe. Vancomycin has been ordered. 9:[address] Guadalupe has discussed the case directly with Dr. Dodson. No further immediate orders within vancomycin at this time. NPO after midnight requested. At this time she is admitted in stable condition. Vancomycin is infusing and she will be transferred to the floor. SUPERVISION: Patient was evaluated and examined in conjunction with my secondary supervising physician as documented. We have both examined the patient. (Glenn Colin) Medical Decision Making: PHYSICIAN DOCUMENTATION: The patient was evaluated and managed by the Physician Dredge Mechanic and myself. I have reviewed the chart and agree with the findings and plan of care as documented. In addition, I examined the patient myself at 1955. History confirmed as left ring finger swelling for 1 week. Physical findings as follows : Erythematous, swollen, tense. A little bit of palpation in the palm just proximal to the MCP, can't flex or extend it without severe pain. Plan for admission, IV antibiotics, Hand surgery consultation. Deep space finger infection with Xray evidence of osteomyelitis. Elevated WBC and pain, vancomycin 1g IV in the ED. Discussed with West at 2119, plans for OR tomorrow morning. I am the secondary supervising physician. (Melvin Guadalupe) - Diagnostics Imaging Results: Imaging Impressions Finger X-Ray 09/11/17 19:44 Impression: 1. Findings of osteomyelitis involving the fourth distal phalanx. 2. Severe first carpal metacarpal joint osteoarthrosis, progressive since 2011. - Objective Vital Signs: Initial Vital Signs Temperature (C) 37 C 09/11/17 18:35 Heart Rate 104 H 09/11/17 18:35 Respiratory Rate 18 09/11/17 18:35 Blood Pressure 115/74 09/11/17 18:35 O2 Sat (%) 97 09/11/17 18:35 O2 Delivery Mode Room Air Allergies/Adverse Reactions: No Known Allergies Allergy (Verified 09/11/17 18:34) Home Medications: Medication Instructions Recorded Gabapentin [Neurontin 300 MG (*)] 300 mg PO BID 07/14/17 Acetaminophen [Tylenol 325mg (*)] 650 mg PO Q4HRS PRN tab 07/19/17 Calcium Carbonate [Tums 500MG (*)] 1,000 mg PO TID PRN tab.chew 07/19/17 Famotidine [Pepcid 20 MG (*)] 20 mg PO BID #60 tab 07/19/17 Medications Given: Acetaminophen (Tylenol) 650 mg PO Q4HRS PRN PRN Reason: Pain, Mild/Fever, Can Take PO Stop: 03/10/18 21:44 Last Admin: 09/11/17 22:24 Dose: 650 mg Sodium Chloride (Ns) 1,000 mls @ 125 mls/hr IV CONT KYLAH Stop: 03/10/18 21:44 Last Admin: 09/11/17 22:24 Dose: 1,000 mls Ondansetron HCl (Zofran Odt) 4 mg PO Q4HRS PRN PRN Reason: Nausea/Vomiting, Use 1st Stop: 03/10/18 21:41 Last Admin: 09/11/17 22:25 Dose: 4 mg Oxycodone HCl (Oxycodone Ir) 5 - 10 mg PO Q3HRS PRN PRN Reason: Pain, Severe Able to Take PO Stop: 09/21/17 21:41 Last Admin: 09/12/17 04:20 Dose: 10 mg Discontinued Medications Vancomycin/Sodium Chloride (Vancomycin 1 Gm (Premix)) 250 mls @ 250 mls/hr IV EDNOW ONE PRN Reason: Protocol Stop: 09/11/17 20:54 Last Admin: 09/11/17 20:26 Dose: 250 mls Ondansetron HCl (Zofran) 4 mg IVP EDNOW ONE Stop: 09/11/17 20:02 Last Admin: 09/11/17 20:22 Dose: 4 mg Departure - Departure Disposition: [facility] In[facility] Acute Clinical Impression: Finger infection, Osteomyelitis of finger of left hand Condition: Good
[2017-09-11] MEDS ORDERED: VANCOMYCIN HCL/NORMAL SALINE 250 ML IV ONE (19:55)
[2017-09-11] MEDS ORDERED: ONDANSETRON 4 MG/2 ML VIAL IVP ONE (20:01)
[2017-09-11 20:08] LABS: PLATELET COUNT 376 10^3/uL (150-400)
[2017-09-11] MEDS ORDERED: ONDANSETRON DISINTEGRATING 4 MG TAB PO PRN (21:42)
[2017-09-11] MEDS ORDERED: HYDROmorphONE/DILAUDID 1 MG/ML INJ IVP PRN (21:42)
[2017-09-11] MEDS ORDERED: ACETAMINOPHEN 325 MG TAB PO PRN ×2 (21:42→21:45)
[2017-09-11] MEDS ORDERED: ONDANSETRON 4 MG/2 ML VIAL IVP PRN (21:42)
[2017-09-11] MEDS ORDERED: CALCIUM CARBONATE 500 MG CHEWABLE TAB PO PRN (21:45)
[2017-09-11] MEDS ORDERED: NS 1,000 ML IV SCH (21:45)
[2017-09-11] MEDS: oxyCODONE IR 5 MG TAB PO PRN (22:25)
--- NOTE | 2017-09-11 22:32 | GHP ---
[f rep st] HISTORY AND PHYSICAL DATE OF ADMISSION: 09/11/2017 HISTORY OF PRESENT ILLNESS: This patient is a 57-year-old female with a history of alcoholism in rem ission, as well as some recent admissions for bilateral cellulitis, as well as a viral pericarditis. She presents with a swollen left ring finger. She says it has been swelling for about 5 days. She cannot bend it, so she sought care. She has had some subjective fevers and chills. She denies alcoh ol to me. She does not smell of alcohol or appear to be in withdrawal. She was seen in the clinic a few days ago and started on Keflex every 6 hours, which she has been taking with no improvement. Sh wesly is having pain. She has had subjective fevers and chills. She also is concerned that she has some "white pus" on the palmar surface. When I see her, she is largely complaining of pain and being hungry. REVIEW OF SYSTEMS: Complete 10-point review of systems conducted and negative, except as noted in th e HPI. PAST MEDICAL HISTORY: 1. Alcoholism in remission. 2. Viral pericarditis. 3. Alcohol abuse. 4. COPD. 5. Hepatitis C. SOCIAL HISTORY: She says she does smoke. She quit alcohol recently and has been hospitalized a coup le times without withdrawal. She says she is in between places with regard to where she lives. Brendan es illicit drugs. FAMILY HISTORY: Notable for heart disease. ALLERGIES: No known drug allergies. HOME MEDICATIONS: Tylenol, calcium carbonate, famotidine, gabapentin. PHYSICAL EXAMINATION: VITAL SIGNS: Temp 37, blood pressure 142/94, pulse 110, breathing 18 times a minute, 93% on room air. GENERAL: No acute distress. Thin. HEENT: Sclerae anicteric. Oropharynx clear. Mucous membranes moist. NECK: Supple without lymphadenopathy or JVD. LUNGS: Clear to aus cultation bilaterally. HEART: S1, S2. Borderline tachycardic. ABDOMEN: Soft, nontender, nondiste nded. LOWER EXTREMITIES: Without edema. Calves nontender. Her left index finger is edematous. Th ere is some purulence and possible pus versus skin sloughing on the plantar surface. It is warm to t he touch. There is no lymphangitic streaking. LABORATORY DATA: White count 14, hematocrit 33.5, which is her baseline, platelets 376,000. Sodium 138, potassium 3.7, chloride 100, bicarb 27, BUN 18, creatinine 0.5, glucose 118. CRP is 5.4. Film interpreted by me shows osteomyelitis of the distal phalanx, as well as severe 1st metacarpal rio int osteoarthritis. There is also soft tissue swelling noted. I have discussed the case with Glenn Colin and Dr. Melvin Guadalupe. ASSESSMENT/PLAN: A 57-year-old female with osteomyelitis of the finger, with likely tenosynovitis. 1. Tenosynovitis. The patient cannot flex her hand without severe pain. She does not have pain in her forearm in flexion or extension. Hand Surgery has been consulted, Dr. Ramirez Dodson; he will see her in the morning. I will make her n.p.o. past midnight. I will start her on vancomycin. 2. Alcoholism. This appears to be in remission. 3. Tobaccoism. I have given her a nicotine patch. 4. Anemia. This is mild and chronic. Will follow. 5. Finger infection. This appears to be somewhat long-standing in the fact that it has osteomyeliti s. I have ordered some blood cultures. Will follow. I have not called ID. 6. Disposition: Inpatient status. 7. Prophylaxis: Low molecular heparin indicated. I have written for it to start on the morning of the , given the upcoming surgery tomorrow. /[id number]/MODL
[2017-09-12] MEDS: oxyCODONE IR 5 MG TAB PO PRN ×5 (04:20→21:12)
[2017-09-12 04:56] LABS: PLATELET COUNT 407 10^3/uL (150-400)
[2017-09-12 05:05] LABS: INR 0.94 (0.83-1.16); PROTIME(PATIENT) 12.8 SEC (12.0-15.0)
[2017-09-12] MEDS: GABAPENTIN 300 MG CAP PO SCH ×2 (08:15→21:04)
[2017-09-12] MEDS: FAMOTIDINE 20 MG TAB PO SCH ×2 (08:15→21:04)
[2017-09-12] MEDS: NICOTINE 14 MG/24 HR PATCH TD SCH (08:16)
[2017-09-12] MEDS ORDERED: VANCOMYCIN HCL/NORMAL SALINE 250 ML IV SCH (09:00)
[2017-09-12] MEDS ORDERED: ceFAZolin 2 GM/SWFI 2 GM/20 ML SYR IVP ONE (10:03)
--- NOTE | 2017-09-12 10:20 | PDMN ---
Medical Necessity Medical necessity: est los>2mn for eval and rx of osteomyelitis with likely tenosynovitis L ring finger; admit for IV vanco, hand surgery consult w/surgery anticipated, follow cx's; comorbid alcoholism in remission, chronic anemia, COPD , hep C, and hx viral pericarditis; per order and H&P 09/11/17
[2017-09-12] MEDS: LORazepam 0.5 MG TAB PO PRN (10:37)
--- NOTE | 2017-09-12 10:49 | GHP ---
[f rep st] PREOP HISTORY AND PHYSICAL DATE OF ADMISSION: 09/11/2017 CHIEF COMPLAINT: This 57-year-old female presents with left ring finger pain. The patient last night presented to the emergency department with the above complaints, not having any prior injury or knowledge of breakdown of the skin prior to the pain and swelling, which she presents with. She did see her doctor at [facility] 3-4 days ago and was started on Keflex 500 mg four times daily , which she states she had been taking without any improvement. She did worsen significantly and therefore presented to the emergency department. At this time , she complains of redness, pain, swelling and inability to move and pus under the skin. She states that she has not had any further feelings of fevers, sweats, or chills. She has not had any other joint aches, pains, headaches, nausea, vomiting, abdominal pain. She does report that she had been treated for cellulitis of the feet sometime in the last several months, but that it resolved. She denies any other more recent infections. REVIEW OF SYSTEMS: Otherwise negative except as mentioned above. PAST MEDICAL HISTORY: 1. The patient has a history of alcoholism in remission. She states she has not had anything to drink for 3-4 months. 2. Viral pericarditis and pneumonia per patient's report. 3. COPD. 4. Hepatitis C. SOCIAL HISTORY: The patient says that she does smoke. She recently stopped drinking alcohol as mentioned above. At this time, she currently is homeless. She denies any other illicit drug use. FAMILY HISTORY: Notable for heart disease. ALLERGIES: No known drug allergies. HOME MEDICATIONS: The patient takes Tylenol, calcium, famotidine, and gabapentin. PHYSICAL EXAM: GENERAL: The patient is alert, somewhat anxious, walking around the room, but generally resting comfortably. She is holding her left hand elevated. VITAL SIGNS: Stable. HEENT: Patient's head is atraumatic, normocephalic. Extraocular movements are intact. Nares are patent. Hearing is grossly normal. Oral mucosa are moist. NECK: The patient moves the neck in all directions without pain or limits. LUNGS: Respirations are easy and nonlabored. CARDIOVASCULAR: Capillary refill is brisk. Pulses are brisk and no upper extremity edema is present. SKIN: Examination of the patient's left hand reveals obvious swelling and purulence under the skin from the PIP at the palmar surface of the ring finger to the tip of the finger. The dorsal aspect of her finger is swollen as well. It is exquisitely tender to even lightly touch. She has extremely limited range of motion due to pain. There is, however, no streaking or redness around the rest of the hand or left arm. DIAGNOSTIC DATA: X-rays, which were taken in the emergency department, do show evidence of osteomyelitis involving the 4th distal phalanx. It is also noted that she has severe 1st metacarpal joint osteoarthritis, progressive since 2011. ASSESSMENT AND PLAN: The patient was admitted to the hospitalist service last night and a hand surgery consult was requested. Dr. Dodson will be performing an I and D on the patient's left ring finger later today for tenosynovitis and osteomyelitis. After I saw the patient today, I did go over the consent form with her, which was signed and witnessed by me. I also placed a bulky dressing on the patient's hand as she was having quite a bit of pain from bumping her finger. The importance of staying n.p.o. was emphasized to her several times as she was leaving the room and trying to obtain liquids and food earlier in the day. She does states that she understands the importance of this and that her surgery will be canceled if she does eat or drink anything. The patient will be taken to surgery later today and needs to remain n.p.o. until then as mentioned above. Vancomycin was started last night in the emergency department and will be continued per hospitalist orders. DIAGNOSIS: Left ring finger tenosynovitis, left ring finger osteomyelitis, distal phalanx. /[id number]/MODL MTDD
--- NOTE | 2017-09-12 14:01 | HOSPPROG ---
Hospitalist Progress Note Assessment/Plan: 57y female with c/o finger pain. First encounter, chart reviewed. D/W CM. #Left ring finger tenosynovitis -osteo -I&D today -cont abx #Alcoholism -chronic -d/w cM #Homeless -CM #Dispo -unclear -likely need IV abx -ID to follow Subjective: Anxious. Hungry. In pain. Objective: Vital Signs Temp Pulse Resp BP Pulse Ox 37.0 C 91 12 119/74 96 09/12/17 13:06 09/12/17 13:06 09/12/17 13:06 09/12/17 13:06 09/12/17 13:06 Laboratory Results 09/12/17 04:20 09/12/17 04:20 09/11/17 09/12/17 09/13/17 05:59 05:59 05:59 Output Total 600 Balance -600 PT 12.8 SEC (12.0-15.0) 09/12/17 04:20 INR 0.94 (0.83-1.16) 09/12/17 04:20 - Physical Exam Constitutional: chronically ill appearing, uncomfortable, cachectic Eyes: PERRL, anicteric sclera, EOMI Ears, Nose, Mouth, Throat: moist mucous membranes, hearing normal, ears appear normal Cardiovascular: regular rate and rhythym, No JVD, No edema Respiratory: no respiratory distress, no rales or rhonchi, reduced air movement Gastrointestinal: No tenderness, No ascites, No guarding Skin: warm, normal color, erythema Musculoskeletal: joint tenderness, pain with ROM, muscular tenderness Neurologic: AAOx3 Psychiatric: not encephalopathic, anxious, poor insight, poor judgement ICD10 Worksheet Patient Problems: Problems Problem Status Onset Pancreatitis Active Tobacco user Active Depression - Depressive disorder Active Vomiting Acute Dehydration Acute Alcoholic intoxication Acute Chest pain Acute Pericardial effusion Acute Left leg cellulitis Acute Lower extremity edema Acute Finger infection Acute Osteomyelitis of finger of left hand Acute
[2017-09-12] MEDS ORDERED: LR 1,000 ML IV ONE (14:15)
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
--- NOTE | 2017-09-12 15:12 | POSTOPPROG ---
Post Op Note Date of Operation: 09/12/17 Surgeon: Laureano Dodson Bit Gatherer: Esperanza Gonsales PAC Anesthesiologist: Devin Anesthesia: GET(General Endotracheal) Pre-op Diagnosis: L DRF Post-op Diagnosis: Same Procedure: ORIF Findings: Synthes TITANIUM Volar locking plate Inf/Abcess present in the surg proc area at time of surgery?: No EBL: Minimal
[2017-09-12] MEDS ORDERED: fentaNYL 100 MCG/2 ML INJ ONE ×2 (15:23→16:38)
[2017-09-12] MEDS ORDERED: BACITRACIN 50,000 UNITS/10 ML SYR IRR ONE (15:30)
[2017-09-12] MEDS ORDERED: BUPIVACAINE 0.25% 30 ML SDV ONE (15:30)
--- NOTE | 2017-09-12 16:01 | PDANEPAE ---
ANE Past Medical History - Pulmonary History Hx Oxygen in Use at Home: No Hx Sleep Apnea: No Sleep Apnea Screening Result - Last Documented: Negative - Endocrine History Hx Diabetes: No - Chronic Pain History Chronic Pain: No ANE Review of Systems Review of Systems: ANE Patient History - Allergies Allergies/Adverse Reactions: No Known Allergies Allergy (Verified 09/11/17 18:34) - Home Medications Home Medications: Gabapentin [Neurontin 300 MG (*)] 300 mg PO BID 07/14/17 [Last Taken 07/14/17] - NPO status NPO Since - Liquids (Date): 09/12/17 NPO Since - Liquids (Time): 11:30 NPO Since - Solids (Date): 09/12/17 NPO Since - Solids (Time): 00:00 - Smoking Hx Smoking Status: Current every day smoker ANE Labs/Vital Signs - Labs Result Diagrams: 09/12/17 04:20 09/12/17 04:20 - Vital Signs Blood Pressure: 119/74 Heart Rate: 91 Respiratory Rate: 16 O2 Sat (%): 96 Height: 162.56 cm Weight: 43.091 kg ANE Physical Exam - Airway Neck exam: FROM Mallampati Score: Class 1 Mouth exam: poor dentition - Pulmonary Pulmonary: no respiratory distress, no rales or rhonchi, clear to auscultation - Cardiovascular Cardiovascular: regular rate and rhythym, no murmur, rub, or gallop - ASA Status ASA Status: III ANE Anesthesia Plan Anesthesia Plan: GA w LMA
[2017-09-12] MEDS ORDERED: NALOXONE HCL 0.4 MG/ML INJ IVP PRN (16:02)
[2017-09-12] MEDS ORDERED: DEXAMETHASONE 4 MG/ML VIAL IVP PRN (16:02)
[2017-09-12] MEDS ORDERED: ONDANSETRON 4 MG/2 ML VIAL IVP PRN (16:02)
[2017-09-12] MEDS ORDERED: ALBUTEROL 3 ML DEYVIAL IH PRN (16:02)
--- NOTE | 2017-09-12 16:20 | POSTOPPROG ---
Post Op Note Date of Operation: 09/12/17 Surgeon: Laureano Dodson Enamel Burner: Esperanza Gonsales Anesthesiologist: Devin Anesthesia: LMA Pre-op Diagnosis: Infection/abscess left ring finger Post-op Diagnosis: Same Procedure: I + D and wound packing Cultures sent Findings: Frankly liiquified bone and soft tissue Inf/Abcess present in the surg proc area at time of surgery?: Yes Depth: Organ Space EBL: Minimal Complications: None
[2017-09-12] MEDS: fentaNYL 100 MCG/2 ML INJ IVP PRN ×2 (16:39→17:15)
--- NOTE | 2017-09-12 17:14 | POSTANESTH ---
Post Anesthetic Evaluation Cardiovascular Status: Normal, Stable, Similar to Pre-Op Cond Respiratory Status: Normal, Stable, Similar to Pre-op Cond. Level of Consciousness/Mental Status: Moderately Sleepy Pain Control: Adequate, Prn Tx Ordered Nausea/Vomiting Control: Adequate, Prn Tx Ordered Complications Possibly Related to Anesthesia: None Noted
[2017-09-12] MEDS ORDERED: VANCOMYCIN 750 MG in NS 150 ML IV SCH (20:30)
[2017-09-13 01:28] VITALS: RESP 16
[2017-09-13] MEDS: LORazepam 0.5 MG TAB PO PRN ×2 (01:48→10:36)
[2017-09-13] MEDS: oxyCODONE IR 5 MG TAB PO PRN ×2 (01:48→16:54)
--- NOTE | 2017-09-13 02:08 | GOP ---
[f rep st] OPERATIVE REPORT DATE OF OPERATION: 09/12/2017 SURGEON: Laureano Dodson MD SAILMAKER: Esperanza Gonsales PA-C. PREOPERATIVE DIAGNOSIS: Left ring finger infection with osteomyelitis, distal phalanx. POSTOPERATIVE DIAGNOSIS: Left ring finger infection with osteomyelitis, distal phalanx. PROCEDURE PERFORMED: Irrigation and debridement of abscess, left ring finger including flexor tendon sheath, with deep cultures taken. FINDINGS: She had remarkably thick pus that had suppurated through the skin. I dissected through th e finger pulp, which was essentially liquified. The distal 1/2 of the distal phalanx was also liquif ied without any identifiable bony architecture. I irrigated and I debrided all nonviable tissue. Th is left her with a significant void distally of bone and soft tissue. Recognizing the severity of he r infection and how deep it was, I removed all obviously nonviable tissue and packed her wound open, and covered this with a sterile bulky dressing. I plan to return her to the operating room in 2 days for completion amputation, once the tissue has declared itself more adequately. In the meantime, ho pefully we will have an identification of the organism causing this. INDICATIONS: The patient is a 57-year-old woman who has a self-reported 1-week history of swelling a nd pain in her left ring finger. On presentation to the emergency department, she had pus under the skin with an enlarged digit. X-rays revealed a moth-eaten appearance of the distal phalanx, consiste nt with osteomyelitis, as was her clinical presentation. She is brought to the operating room urgent ly for I and D procedure. DESCRIPTION OF PROCEDURE: After routinely checking the patient's identification, consent and the suc cessful induction of LMA general anesthetic, the patient's left arm and hand were prepped and draped in usual standard fashion. A surgical time-out was completed. I then unroofed the skin with the abo ve findings noted. I debrided all nonviable tissue and as noted above, left the wound open and packe d this with gauze for subsequent repeat I and D, and potential skeletal shortening and primary closur e. At the conclusion of the case, she was transferred to the recovery area in excellent condition. She tolerated the procedure well. There were no complications. /[id number]/MODL
[2017-09-13] MEDS ORDERED: ENOXAPARIN 40 MG/0.4 ML SYR SC SCH (09:00)
--- NOTE | 2017-09-13 10:17 | SOAPPROG ---
SOAP Progress Note Assessment/Plan: Assessment:POD 1 S/P debridement of heavily infected finger with soft tissue and bone loss. No new culture results. Plan:Return to OR tomorrow for wound eval and likely completion amputation at trans DIPJ or Mid P2 level 09/13/17 10:15 Subjective: Pain controlled well Objective: Vital Signs Temp Pulse Resp BP Pulse Ox 36.9 C 108 H 16 137/90 H 91 L 09/13/17 08:00 09/13/17 08:00 09/13/17 08:00 09/13/17 08:00 09/13/17 08:00 Microbiology 09/12/17 15:53 Gram Stain - Final Finger - Eswab 09/12/17 15:53 Mycobacterial Smear (ALEX) - Final Finger - Eswab Mycobacterial Culture - Final Laboratory Results 09/12/17 04:20 09/12/17 04:20 09/12/17 09/13/17 09/14/17 05:59 05:59 05:59 Intake Total 1850 Output Total 600 5 Balance -600 1845 PT 12.8 SEC (12.0-15.0) 09/12/17 04:20 INR 0.94 (0.83-1.16) 09/12/17 04:20 AF No sig pain in L IV finger I did not change dressing today - will do in OR tomorrow ICD10 Worksheet Patient Problems: Problems Problem Status Onset Finger infection Acute Osteomyelitis of finger of left hand Acute Depression - Depressive disorder Active Pancreatitis Active Tobacco user Active Alcoholic intoxication Acute Chest pain Acute Dehydration Acute Left leg cellulitis Acute Lower extremity edema Acute Pericardial effusion Acute Vomiting Acute
[2017-09-13] MEDS: FAMOTIDINE 20 MG TAB PO SCH (10:30)
[2017-09-13] MEDS: GABAPENTIN 300 MG CAP PO SCH (10:30)
[2017-09-13] MEDS: NICOTINE 14 MG/24 HR PATCH TD SCH (10:30)
[2017-09-13 11:49] VITALS: TEMP 98.6
--- NOTE | 2017-09-13 12:07 | HOSPPROG ---
Hospitalist Progress Note Assessment/Plan: 57y female with c/o finger pain. She has a hx of cellulitis, and viral pericarditis. First encounter, chart reviewed. D/W Dr Rodriguez. #Left ring finger tenosynovitis, osteo -will get amputated tomorrow -I&D -on vanco #Alcoholism -no s/sx of withdrawal #Homeless -CM #increased sedation -decreased dose of ativan #underweight w a BMI of 16 #dispo: pending, see above Subjective: vicky is very sedate during my interview. Objective: Vital Signs Temp Pulse Resp BP Pulse Ox 37.0 C 108 H 16 118/76 90 L 09/13/17 11:29 09/13/17 11:29 09/13/17 11:29 09/13/17 11:29 09/13/17 11:29 Microbiology 09/12/17 15:53 Gram Stain - Final Finger - Eswab 09/12/17 15:53 Mycobacterial Smear (ALEX) - Final Finger - Eswab Mycobacterial Culture - Final Laboratory Results 09/12/17 04:20 09/12/17 04:20 09/12/17 09/13/17 09/14/17 05:59 05:59 05:59 Intake Total 1850 Output Total 600 5 Balance -600 1845 PT 12.8 SEC (12.0-15.0) 09/12/17 04:20 INR 0.94 (0.83-1.16) 09/12/17 04:20 - Physical Exam Constitutional: chronically ill appearing, cachectic Ears, Nose, Mouth, Throat: hearing normal Respiratory: no respiratory distress Skin: warm, other (left wring finger in dressing) Neurologic: other (sleepy but awakens to verbal stimuli) ICD10 Worksheet Patient Problems: Problems Problem Status Onset Finger infection Acute Osteomyelitis of finger of left hand Acute Depression - Depressive disorder Active Pancreatitis Active Tobacco user Active Alcoholic intoxication Acute Chest pain Acute Dehydration Acute Left leg cellulitis Acute Lower extremity edema Acute Pericardial effusion Acute Vomiting Acute
[2017-09-13] MEDS ORDERED: LORazepam 0.5 MG TAB PO PRN (12:45)
[2017-09-13 16:16] VITALS: BP 126/76; PULSE 114; O2SAT 93
--- NOTE | 2017-09-13 18:46 | GCON ---
[f rep st] CONSULTATION INFECTIOUS DISEASE INPATIENT CONSULT. REFERRING PHYSICIAN: Laureano Dodson MD REASON FOR REFERRAL: Left 4th digit osteomyelitis and abscess. HISTORY OF PRESENT ILLNESS: Patient is a 57-year-old female who was admitted to [facility] on 09/11/2017 complaining of drainage and inflammation and redness of the distal end of her left 4th finger. She states that it was present for approximately 5 days. She was admitted and started on IV vancomycin. Dr. Ramirez Dodson consulted for Hand Surgery and took her to the operating room on 08/19. Significant liquefaction of the distal phalanx of the left 4th finger was noted. The patien t had a significant amount of debridement from that area as well as drainage and washout of the flexo r tendon of that finger. Currently, she is resting comfortably in her hospital room. The plan is for her to return to surgery either later today or tomorrow to complete debridement. She is tolerating vancomycin well per her n urse. The patient is quite sleepy and has received benzodiazepine in the last hour. PAST MEDICAL HISTORY: 1. Alcoholism. 2. History of viral pericarditis. 3. Chronic obstructive pulmonary disease. 4. History of hepatitis C. PAST SURGICAL HISTORY: None noted. ANTIBIOTICS: Vancomycin. ALLERGIES: No known drug allergies. SOCIAL HISTORY: The patient does not have a fixed address. Denies any recent alcohol. Acknowledges tobacco use. No illicit drug use. FAMILY HISTORY: Reviewed but noncontributory. REVIEW OF SYSTEMS: Apart from that detailed above in the history of present illness, a comprehensive 10-system review is negative. PHYSICAL EXAMINATION: VITAL SIGNS: Temperature maximum is 37.2, temperature current is 36.9, heart rate is 108, respiratory rate is 16, blood pressure is 137/99. GENERAL: The patient is a well-formed , well-nourished, older female who is sleeping in her hospital bed. She is very difficult to arouse. HEART: Regular rate and rhythm. No murmur, rub, or gallop noted. No significant peripheral edema . LUNGS: Clear to auscultation bilaterally with good effort. SKIN: Warm and dry to the touch. No rash noted. EXTREMITIES: Patient's left hand is bandaged postoperatively with wraps at the distal end of the left 4th digit. No spreading proximal erythema. LABORATORY DATA: Patient has a CBC dated 09/12/2017 shows a white blood cell count of 12.6, hemoglob in 11.4, hematocrit 35.2, and a platelet count of 407. Differential is within normal limits. Serum chemistries on 09/12/2017 are all within normal limits. Creatinine 0.6. MICROBIOLOGIC DATA: Patient has operative cultures dated 09/12 which are growing Staphylococcus rigo us 3+. Blood cultures dated 09/11/2017 are no growth to date. ASSESSMENT: Chronic soft tissue infection and osteomyelitis of the left 4th digit. Status post debr idement by Dr. Dodson yesterday. Return trip to the operating room is planned. We will continue patie nt on current dose of vancomycin. We will follow the sensitivity panels to determine whether this is a methicillin sensitive or methicillin-resistant subtype. At this point will continue to observe th e patient for clinical improvement. PLAN: 1. Continue monotherapy with vancomycin. 2. Follow clinical course. 3. Agree with operative plan. /[id number]/MODL
== END 2017-09-13 19:53 | disposition left against medical advice (07) | DRG 513 ==
LOC: F3N 21:54
PROVIDERS: ADMIT Internal Medicine; ATTEND Internal Medicine
PROC: 0L980ZZ Drainage of Left Hand Tendon, Open Approach (ICD-10-PCS; principal; 2017-09-12 14:00)
PROC: 0JBK0ZZ Excision of Left Hand Subcutaneous Tissue and Fascia, Open Approach (ICD-10-PCS; principal; 2017-09-12 14:00)
DX: M65.142 Other infective (teno)synovitis, left hand (principal); M86.142 Other acute osteomyelitis, left hand; J44.9 Chronic obstructive pulmonary disease, unspecified; B18.2 Chronic viral hepatitis C; F17.210 Nicotine dependence, cigarettes, uncomplicated; Z59.0 Homelessness; F10.21 Alcohol dependence, in remission
CPT/HCPCS: 96365; 97165-GO; J1170; J1650; J2405; J3010; J3370

== ENCOUNTER 2017-09-14 06:07 | Inpatient (IN) | payer MEDICAID ==
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
[2017-09-14 07:13] LABS: PLATELET COUNT 361 10^3/uL (150-400)
[2017-09-14] MEDS ORDERED: ROCURONIUM 50 MG/5 ML VIAL ONE (08:06)
[2017-09-14] MEDS ORDERED: ONDANSETRON 4 MG/2 ML VIAL ONE (08:06)
[2017-09-14] MEDS ORDERED: SUGAMMADEX SODIUM 200 MG/2 ML VIAL IVP ONE (08:06)
[2017-09-14] MEDS ORDERED: RANITIDINE 50 MG/2 ML VIAL ONE (08:06)
[2017-09-14] MEDS ORDERED: LIDOCAINE 2% 5 ML SDV ONE (08:06)
[2017-09-14] MEDS ORDERED: PROPOFOL 200 MG/20 ML VIAL ONE (08:07)
[2017-09-14] MEDS ORDERED: fentaNYL 100 MCG/2 ML INJ ONE (08:07)
[2017-09-14] MEDS ORDERED: POLYMYXIN B SULFATE 500,000 UNIT/10 ML SYR IRR ONE (08:13)
[2017-09-14] MEDS ORDERED: BACITRACIN 50,000 UNITS/10 ML SYR IRR ONE (08:13)
[2017-09-14] MEDS ORDERED: BUPIVACAINE 0.5% 30 ML SDV ONE (08:13)
--- NOTE | 2017-09-14 08:45 | PDANEPAE ---
ANE Past Medical History - Pulmonary History Hx Oxygen in Use at Home: No Hx Sleep Apnea: No - Endocrine History Hx Diabetes: No - Chronic Pain History Chronic Pain: No ANE Review of Systems Review of Systems: ANE Patient History - Allergies Allergies/Adverse Reactions: No Known Allergies Allergy (Verified 09/14/17 07:39) - Home Medications Home Medications: Gabapentin [Neurontin 300 MG (*)] 300 mg PO BID 07/14/17 [Last Taken 07/14/17] Ativan 09/14/17 [Last Taken Unknown] Gabapentin [Neurontin 300 MG (*)] 600 mg PO DAILY14 09/14/17 [Last Taken Unknown ] Ibuprofen [Motrin (*)] 800 mg PO BID 09/14/17 [Last Taken Unknown] Lidocaine 09/14/17 [Last Taken Unknown] Wellbutrin 100mg (*) 09/14/17 [Last Taken Unknown] traMADol 09/14/17 [Last Taken Unknown] traZODone 09/14/17 [Last Taken Unknown] - NPO status NPO Since - Solids (Date): 09/13/17 NPO Since - Solids (Time): 16:00 - Smoking Hx Smoking Status: Current every day smoker ANE Labs/Vital Signs - Labs Result Diagrams: 09/14/17 07:03 09/14/17 07:03 - Vital Signs Blood Pressure: 149/100 Heart Rate: 100 Respiratory Rate: 16 O2 Sat (%): 96 Weight: 45.359 kg ANE Physical Exam - Airway Neck exam: FROM Mallampati Score: Class 1 Mouth exam: poor dentition - Pulmonary Pulmonary: no respiratory distress, no rales or rhonchi, reduced air movement - Cardiovascular Cardiovascular: regular rate and rhythym, no murmur, rub, or gallop - ASA Status ASA Status: III, E ANE Anesthesia Plan Anesthesia Plan: general endotracheal anesthesia
[2017-09-14] MEDS ORDERED: ONDANSETRON 4 MG/2 ML VIAL IVP PRN ×2 (08:47→10:31)
[2017-09-14] MEDS ORDERED: fentaNYL 100 MCG/2 ML INJ IVP PRN (08:47)
[2017-09-14] MEDS ORDERED: ALBUTEROL 3 ML DEYVIAL IH PRN (08:47)
[2017-09-14] MEDS ORDERED: DIAZEPAM 10 MG/2 ML SYR IVP PRN (08:47)
[2017-09-14] MEDS ORDERED: LR 500 ML IV PRN (08:47)
[2017-09-14] MEDS ORDERED: NALOXONE HCL 0.4 MG/ML INJ IVP PRN (08:47)
[2017-09-14] MEDS ORDERED: DEXAMETHASONE 4 MG/ML VIAL IVP PRN (08:47)
--- NOTE | 2017-09-14 09:24 | POSTOPPROG ---
Post Op Note Date of Operation: 09/14/17 Surgeon: Laureano Dodson Audit Analyst: None Anesthesiologist: Devin Anesthesia: LMA Pre-op Diagnosis: MRSA infection Left ring finger Post-op Diagnosis: Same Procedure: Amputation with Neurectomies L IV Trans Distal P2 Inf/Abcess present in the surg proc area at time of surgery?: Yes Depth: Organ Space EBL: Minimal
--- NOTE | 2017-09-14 09:38 | SOAPPROG ---
SOAP Progress Note Assessment/Plan: Assessment: Plan: Patient is at risk for signing out AMA, in part because of poor coping skills and confinement in hospital. Due to public health concern in regards to her diagnosis of MRSA infection, consider forced confinement to hospital. 09/14/17 09:35 P Objective: Vital Signs Temp Pulse Resp BP Pulse Ox 36.3 C 93 18 129/90 H 100 09/14/17 09:17 09/14/17 09:17 09/14/17 09:17 09/14/17 09:17 09/14/17 09:17 Laboratory Results 09/14/17 07:03 09/14/17 07:03 ICD10 Worksheet Patient Problems: Problems Problem Status Onset Osteomyelitis Acute Depression - Depressive disorder Active Pancreatitis Active Tobacco user Active Alcoholic intoxication Acute Chest pain Acute Dehydration Acute Finger infection Acute Left leg cellulitis Acute Lower extremity edema Acute Osteomyelitis of finger of left hand Acute Pericardial effusion Acute Vomiting Acute
--- NOTE | 2017-09-14 10:04 | GOP ---
[f rep st] OPERATIVE REPORT DATE OF OPERATION: 09/14/2017 SURGEON: Laureano Dodson MD PREOPERATIVE DIAGNOSIS: Methicillin-resistant Staphylococcus aureus infection with osteomyelitis, le ft ring finger. POSTOPERATIVE DIAGNOSIS: Methicillin-resistant Staphylococcus aureus infection with osteomyelitis, l eft ring finger. PROCEDURE PERFORMED: Amputation with digital neurectomies, left ring finger. FINDINGS: Completion amputation was performed at the distal aspect of the middle phalanx. I was mj ble to gain adequate tissue for closure with amputation at a more distal level through the DIP joint due to the tissue loss. I had a tension-free loose closure of the tissue, but I purposely left the t issue open due to the infectious process to allow this to drain. scheduled DESCRIPTION OF PROCEDURE: After routinely checking the patient's identification, consent and the suc cessful induction of LMA general anesthetic, the patient's left upper extremity was prepped and drape d in usual standard fashion. A surgical time-out was completed. The previous tissue was inspected. I performed digital neurectomies back to the level of the middle phalanx. There was significant tis clayton loss on the palmar surface. I amputated through the DIP joint, but was unable to close the tissu e at this level due to the loss of palmar tissue and the poor condition of the dorsal tissue. As suc h, I used a rongeur to transect the middle phalanx approximately 8-10 mm from its distal margin and a rticular surface. I left the flexor and extensor tendons alone and did not suture them with any deep sutures. I discarded the redundant skin and loosely approximated the dorsal and palmar skin with 2 sutures only leaving a significant gap and opening to allow drainage. Prior to closure, I irrigated the wound thoroughly with normal saline. I did not find any digna pus or devitalized tissue at the t kandace of this surgery. A sterile bulky dressing was applied followed by digital block using 0.5% Alejandrina ine plain for postoperative comfort. The patient was transferred to the recovery area in good condit ion. She tolerated the procedure well. There were no complications. /[id number]/MODL
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
[2017-09-14] MEDS ORDERED: diphenhydrAMINE 25 MG CAP PO PRN (10:31)
[2017-09-14] MEDS ORDERED: ACETAMINOPHEN 325 MG TAB PO PRN (10:31)
[2017-09-14] MEDS ORDERED: ONDANSETRON DISINTEGRATING 4 MG TAB PO PRN (10:31)
[2017-09-14] MEDS ORDERED: TRAZODONE 100 MG PO PRN (10:38)
[2017-09-14] MEDS ORDERED: LIDOCAINE 5% 1 EA PATCH TD PRN (10:38)
--- NOTE | 2017-09-14 10:45 | POSTANESTH ---
Post Anesthetic Evaluation Cardiovascular Status: Normal, Stable Respiratory Status: Normal, Stable Level of Consciousness/Mental Status: Can Participate in Eval Pain Control: Adequate, Prn Tx Ordered Nausea/Vomiting Control: Adequate, Prn Tx Ordered Complications Possibly Related to Anesthesia: None Noted
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
[2017-09-14] MEDS ORDERED: VANCOMYCIN 750 MG in NS 150 ML IV SCH (11:00)
[2017-09-14] MEDS ORDERED: VANCOMYCIN 750 MG in D5W 150 ML IV SCH (11:00)
[2017-09-14] MEDS: oxyCODONE IR 5 MG TAB PO PRN ×3 (11:28→19:57)
[2017-09-14] MEDS: NICOTINE 7 MG/24 HR PATCH TD SCH (11:29)
--- NOTE | 2017-09-14 13:45 | PCMIDPN ---
Assessment/Plan: Assessment: Left 4th digit abscess and osteomyelitis secondary to MRSA. Patient has been on IV vancomycin. Patient had her 1st debridement surgery the day before yesterday. She left AMA last night. Returned today for readmission. Was taken back to surgery and had completion procedure done. Sensitivities have returned on her MRSA isolate. Doxycycline is an option. Will discontinue the vancomycin and start on oral doxycycline 100 mg p.o. twice daily. Would recommend a 2 week course provided the completion surgery today brought everything back to uninvolved bone tissue. Plan: 1. Follow up on surgical report and path report. 2. Discontinue vancomycin and start doxycycline 100 mg p.o. twice daily. 09/14/17 17:34 09/14/17 17:34 Subjective: Patient is resting in her hospital bed. Notes no new complaint. No fevers or chills. Objective: Vancomycin # 3 Vital Signs Temp Pulse Resp BP Pulse Ox 37.3 C 117 H 16 108/65 95 09/14/17 13:23 09/14/17 13:23 09/14/17 13:23 09/14/17 13:23 09/14/17 13:23 Laboratory Results 09/14/17 07:03 09/14/17 07:03 09/13/17 09/14/17 09/15/17 05:59 05:59 05:59 Intake Total 650 Output Total 5 Balance 645 - Physical Exam General Appearance: WD/WN, alert, no apparent distress, non-toxic Respiratory: lungs clear, normal breath sounds, No respiratory distress Cardiac/Chest: regular rate, rhythm, No tachycardia Extremities: No non-tender, No normal inspection Skin: normal color, warm/dry, No rash Neuro/Psych: alert, normal mood/affect, oriented x 3 ICD10 Worksheet Patient Problems: Problems Problem Status Onset Osteomyelitis Acute Depression - Depressive disorder Active Pancreatitis Active Tobacco user Active Alcoholic intoxication Acute Chest pain Acute Dehydration Acute Finger infection Acute Left leg cellulitis Acute Lower extremity edema Acute Osteomyelitis of finger of left hand Acute Pericardial effusion Acute Vomiting Acute
[2017-09-14] MEDS: FAMOTIDINE 20 MG TAB PO SCH (15:05)
[2017-09-14] MEDS: GABAPENTIN 300 MG CAP PO SCH ×4 (15:05→19:57)
[2017-09-14] MEDS: MULTIVITAMINS 1 EACH TAB PO SCH (15:06)
[2017-09-14] MEDS: LORazepam 0.5 MG TAB PO PRN ×2 (15:18→18:15)
[2017-09-14] MEDS: DOXYCYCLINE HYCLATE 100 MG CAP/TAB PO SCH ×2 (15:19→19:57)
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
[2017-09-14 19:22] VITALS: O2SAT 95
[2017-09-15 04:56] LABS: PLATELET COUNT 354 10^3/uL (150-400)
[2017-09-15] MEDS: oxyCODONE IR 5 MG TAB PO PRN ×3 (06:18→12:51)
[2017-09-15] MEDS: GABAPENTIN 300 MG CAP PO SCH ×2 (08:11→12:52)
[2017-09-15] MEDS: FAMOTIDINE 20 MG TAB PO SCH (08:11)
[2017-09-15] MEDS: DOXYCYCLINE HYCLATE 100 MG CAP/TAB PO SCH (08:11)
[2017-09-15] MEDS: NICOTINE 7 MG/24 HR PATCH TD SCH (08:16)
[2017-09-15] MEDS: LORazepam 0.5 MG TAB PO PRN ×2 (08:26→12:50)
--- NOTE | 2017-09-15 08:40 | SOAPPROG ---
SOAP Progress Note Assessment/Plan: Assessment: Plan: Objective: Vital Signs Temp Pulse Resp BP Pulse Ox 37.7 C 72 16 105/70 95 09/15/17 07:37 09/15/17 07:37 09/15/17 07:37 09/15/17 07:37 09/15/17 07:37 Laboratory Results 09/15/17 04:20 09/15/17 04:20 09/14/17 09/15/17 09/16/17 05:59 05:59 05:59 Intake Total 2650 Output Total 5 Balance 2645 ICD10 Worksheet Patient Problems: Problems Problem Status Onset Osteomyelitis Acute Depression - Depressive disorder Active Pancreatitis Active Tobacco user Active Alcoholic intoxication Acute Chest pain Acute Dehydration Acute Finger infection Acute Left leg cellulitis Acute Lower extremity edema Acute Osteomyelitis of finger of left hand Acute Pericardial effusion Acute Vomiting Acute
--- NOTE | 2017-09-15 09:22 | SOAPPROG ---
SOAP Progress Note Assessment/Plan: Assessment: Patient doing well s/p left ring finger amputation surgery on 09/14/17 for MRSA positive infection. Plan: -NWB to affected finger. Maintain dry dressing, we will continue to closely monitor. -Continue IV antibiotics and recommendations per ID and IM. Appreciate their recommendations. -Patient socioeconomic status and h/o leaving AMA puts her at risk for recurrent and continued infection, she has been made aware it is in her best interest to continue care at this time at [facility] where we can maintain her antibiotics and watch her closely. -Patient advised to watch for worsening change in heat/color to area, abnormal bleeding/oozing/discharge, change in ROM of hand, worsening numbness/tingling, fever/chills and to seek immediate medical attention. -Questions/concerns please call our office [phone]. Patient seen and examined in conjunction with Dr. Dodson today. 09/15/17 09:17 Subjective: Patient alert and oriented, alone in room. Able to respond appropriately to questions. Has been compliant in dry dressing and no heavy lifting. Denies fever, chills, NVD, cough, congestion, SOB, dyspnea, change in heat/color around wound site and of left upper extremity, change in ROM or strength of extremities, abnormal bleeding/oozing/discharge from dressing. Is passing flatus and BMs. Objective: Vital Signs Temp Pulse Resp BP Pulse Ox 37.7 C 72 16 105/70 95 09/15/17 07:37 09/15/17 07:37 09/15/17 07:37 09/15/17 07:37 09/15/17 07:37 Laboratory Results 09/15/17 04:20 09/15/17 04:20 09/14/17 09/15/17 09/16/17 05:59 05:59 05:59 Intake Total 2650 Output Total 5 Balance 2645 Physical Exam: Patient is alert/oriented, able to respond appropriately to questions. No acute distress. Skin warm/dry. HEENT: NAD, moist buccal mucosa, patent nares, hearing intact, no lymphadenopathy. CV: RRR, lungs C2A b/l, no diaphoresis, non-labored breathing. Calves soft/ supple and NTTP b/l. Abs: Soft, non-tender, non-distended. MS: Left digit 4 bandaged at amputation site: no abnormal bleeding/oozing/ discharge noted to dressing. Skin around dressing warm/dry with no change in heat/color to area. Full AROM of left hand otherwise. Brisk cap refill. Gross sensation intact b/l with no focal deficits noted. Able to make a fist b/l. ICD10 Worksheet Patient Problems: Problems Problem Status Onset Osteomyelitis Acute Depression - Depressive disorder Active Pancreatitis Active Tobacco user Active Alcoholic intoxication Acute Chest pain Acute Dehydration Acute Finger infection Acute Left leg cellulitis Acute Lower extremity edema Acute Osteomyelitis of finger of left hand Acute Pericardial effusion Acute Vomiting Acute Lab and Imaging 09/15/17 04:20 09/15/17 04:20 WBC 7.61 10^3/uL (3.80-9.50) 09/15/17 04:20 RBC 3.92 10^6/uL (4.18-5.33) L 09/15/17 04:20 Hgb 10.8 g/dL (12.6-16.3) L 09/15/17 04:20 Hct 34.1 % (38.0-47.0) L 09/15/17 04:20 MCV 87.0 fL (81.5-99.8) 09/15/17 04:20 MCH 27.6 pg (27.9-34.1) L 09/15/17 04:20 MCHC 31.7 g/dL (32.4-36.7) L 09/15/17 04:20 RDW 14.8 % (11.5-15.2) 09/15/17 04:20 Plt Count 354 10^3/uL (150-400) 09/15/17 04:20 MPV 8.9 fL (8.7-11.7) 09/15/17 04:20 Neut % (Auto) 44.9 % (39.3-74.2) 09/15/17 04:20 Lymph % (Auto) 32.9 % (15.0-45.0) 09/15/17 04:20 Curry % (Auto) 17.9 % (4.5-13.0) H 09/15/17 04:20 Eos % (Auto) 2.1 % (0.6-7.6) 09/15/17 04:20 Baso % (Auto) 0.8 % (0.3-1.7) 09/15/17 04:20 Nucleat RBC Rel Count 0.0 % (0.0-0.2) 09/15/17 04:20 Absolute Neuts (auto) 3.42 10^3/uL (1.70-6.50) 09/15/17 04:20 Absolute Lymphs (auto) 2.50 10^3/uL (1.00-3.00) 09/15/17 04:20 Absolute Monos (auto) 1.36 10^3/uL (0.30-0.80) H 09/15/17 04:20 Absolute Eos (auto) 0.16 10^3/uL (0.03-0.40) 09/15/17 04:20 Absolute Basos (auto) 0.06 10^3/uL (0.02-0.10) 09/15/17 04:20 Absolute Nucleated RBC 0.00 10^3/uL (0-0.01) 09/15/17 04:20 Immature Gran % 1.4 % (0.0-1.1) H 09/15/17 04:20 Immature Gran # 0.11 10^3/uL (0.00-0.10) H 09/15/17 04:20 Sodium 139 mEq/L (135-145) 09/15/17 04:20 Potassium 4.9 mEq/L (3.5-5.2) 09/15/17 04:20 Chloride 101 mEq/L (97-110) 09/15/17 04:20 Carbon Dioxide 31 mEq/l (22-31) D 09/15/17 04:20 Anion Gap 7 mEq/L (8-16) L 09/15/17 04:20 BUN 20 mg/dL (7-23) 09/15/17 04:20 Creatinine 0.6 mg/dL (0.6-1.0) 09/15/17 04:20 Estimated GFR > 60 09/15/17 04:20 Glucose 104 mg/dL (70-100) H 09/15/17 04:20 Calcium 9.2 mg/dL (8.5-10.4) 09/15/17 04:20 Magnesium 1.7 mg/dL (1.6-2.3) 09/15/17 04:20 Urine Opiates Screen 348 ng/mL (NEGATIVE) 09/14/17 20:20 Urine Barbiturates NEGATIVE ng/mL (NEGATIVE) 09/14/17 20:20 Ur Phencyclidine Scrn NEGATIVE ng/mL (NEGATIVE) 09/14/17 20:20 Ur Amphetamines Screen NEGATIVE ng/mL (NEGATIVE) 09/14/17 20:20 U Benzodiazepines Scrn NEGATIVE ng/mL (NEGATIVE) 09/14/17 20:20 Urine Cocaine Screen NEGATIVE ng/mL (NEGATIVE) 09/14/17 20:20 U Marijuana (THC) Screen NEGATIVE ng/mL (NEGATIVE) 09/14/17 20:20 Temp Pulse Resp BP Pulse Ox 37.7 C 69 16 105/70 95 09/15/17 07:37 09/15/17 07:37 09/15/17 07:37 09/15/17 07:37 09/15/17 07:37 O2 (L/minute) 3
[2017-09-15] MEDS: MULTIVITAMINS 1 EACH TAB PO SCH (10:20)
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
[2017-09-15 11:50] VITALS: BP 116/82; PULSE 114; RESP 18; TEMP 98.4
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
== END 2017-09-15 13:22 | disposition left against medical advice (07) | DRG 513 ==
LOC: F3N 09:54
PROVIDERS: ADMIT Family Medicine; ATTEND Hospitalist
PROC: 0X6T0Z2 Detachment at Left Ring Finger, Mid, Open Approach (ICD-10-PCS; principal; 2017-09-14 08:30)
DX: M65.142 Other infective (teno)synovitis, left hand (principal); M86.142 Other acute osteomyelitis, left hand; B95.62 Methicillin resistant Staphylococcus aureus infection as the cause of diseases classified elsewhere; J44.9 Chronic obstructive pulmonary disease, unspecified; B18.2 Chronic viral hepatitis C; F17.210 Nicotine dependence, cigarettes, uncomplicated; F10.21 Alcohol dependence, in remission; F19.11 Other psychoactive substance abuse, in remission; F39 Unspecified mood [affective] disorder; Z91.410 Personal history of adult physical and sexual abuse; Z59.0 Homelessness
CPT/HCPCS: 80307; G0480; J2405; J2704; J2780; J3010; J3370

== ENCOUNTER 2017-09-24 00:25 | Emergency (ER) | payer MEDICAID ==
[2017-09-24 00:34] VITALS: BP 112/80; PULSE 99; RESP 20; TEMP 97.9; O2SAT 97
[2017-09-24] MEDS ORDERED: IBUPROFEN 200 MG TAB PO ONE ×2 (01:23→01:30)
[2017-09-24] MEDS ORDERED: ACETAMINOPHEN 325 MG TAB PO ONE (01:23)
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
== END 2017-09-24 01:33 | disposition home or self-care (01) ==
DX: M86.9 Osteomyelitis, unspecified (principal); F17.200 Nicotine dependence, unspecified, uncomplicated; I25.2 Old myocardial infarction; I10 Essential (primary) hypertension

== ENCOUNTER 2017-10-04 22:53 | Emergency (ER) | payer MEDICAID ==
[~2017-10-04 22:53] MED LIST changes: -CEPHALEXIN 500 MG CAP PO SCH; +DOXYCYCLINE HYCLATE 100 MG CAP/TAB PO SCH
[2017-10-04 23:01] VITALS: RESP 16; TEMP 97.9
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
[2017-10-04 23:31] VITALS: BP 132/84; PULSE 89; O2SAT 96
== END 2017-10-04 23:40 ==
LOC: EEVIPCON 22:53
DX: L08.9 Local infection of the skin and subcutaneous tissue, unspecified (principal); F17.200 Nicotine dependence, unspecified, uncomplicated

== ENCOUNTER 2017-11-10 15:18 | Inpatient (IN) | payer MEDICAID ==
[2017-11-10] MEDS ORDERED: NS 1,500 ML IV ONE (15:27)
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
[2017-11-10 15:45] LABS: PLATELET COUNT 299 10^3/uL (150-400)
[2017-11-10 15:52] LABS: INR 0.95 (0.83-1.16); PROTIME(PATIENT) 12.9 SEC (12.0-15.0)
[2017-11-10] MEDS ORDERED: VANCOMYCIN 750 MG in NS 150 ML IV ONE (17:00)
[2017-11-10] MEDS ORDERED: ONDANSETRON 4 MG/2 ML VIAL IVP PRN (17:27)
[2017-11-10] MEDS ORDERED: ACETAMINOPHEN 325 MG TAB PO PRN (17:27)
[2017-11-10] MEDS ORDERED: ALBUTEROL 3 ML DEYVIAL IH PRN (17:27)
[2017-11-10] MEDS ORDERED: HYDROmorphone HCL/NS 0.5 MG/ML SYR IVP PRN (17:27)
[2017-11-10] MEDS ORDERED: ALBUTEROL 60 PUFFS/8 GM MDI IH PRN (17:27)
[2017-11-10] MEDS ORDERED: NS 1,000 ML IV SCH (17:30)
[2017-11-10] MEDS ORDERED: VANCOMYCIN HCL/NORMAL SALINE 250 ML IV SCH (18:00)
--- NOTE | 2017-11-10 19:04 | GCON ---
[f rep st] CONSULTATION ORTHOPEDICS CONSULTATION DATE OF CONSULTATION: 11/10/2017 CHIEF COMPLAINT: Chest pain and left finger pain, status post previous amputation. HISTORY OF PRESENT ILLNESS: Patient is a 57-year-old homeless woman with a history of alcoholism, [place] PD, and hep C. She was admitted in August for osteomyelitis and tenosynovitis of the left ring fing er. The finger was addressed by Dr. Ramirez Dodson, who performed an amputation. She has been on intermit tent antibiotic therapy. She evidently has been seen in [facility]. She has left AMA on previo us admissions. She now complains of significant chest discomfort and difficulty breathing. A chest x-ray shows pulmonary infiltrate consistent with pneumonia. She has not been on antibiotics in the [facility] last few weeks. She does not have any fever but she does have an extremely high white blood ce ll count. By report, her previous cultures grew out MRSA from the finger amputation site. She was s tarted on vancomycin on her admission. We do not have sputum cultures as yet. Blood cultures were t aken prior to initiation of the antibiotics. These are pending. PHYSICAL EXAMINATION: GENERAL: The patient is alert, oriented, reasonably well nourished for a home less person. HEAD: Wears eyeglasses. Atraumatic, normocephalic. CHEST: Rales and rhonchi. Deep inspiration causes pain. CARDIAC: Regular rate and rhythm. Normal S1, S2. No gallop or murmurs. ABDOMEN: Bowel sounds positive. Nontender. EXTREMITIES: Left ring finger has previous amputation stitches still in place. Moderate erythema and swelling involving the remaining stump of the finger that encompasses the midportion of the middle phalanx and proximal. No drainage to culture at this t kandace. Skin is warm and tender around the base of the finger. No significant tenderness proximal to t he metacarpophalangeal articulation. ASSESSMENT: 1. Cellulitis, left ring finger remaining amputation stump. Plan: Continue vancomycin to treat thi s presumed MRSA infection. If this is not significantly clearing and reducing down to a smaller area , then we may have to do a ray resection. If we can reduce this down to a smaller area, we may be ab le to amputate through the PIP joint or just proximal to it. 2. Decreased respiratory status secondary to pneumonia. I feel that this should get under control p rior to any surgery on the finger. We have notified the hospitalist, and he will initiate split sput um cultures and appropriate antibiotics for respiratory infection. 3. Severe social history difficulties with alcoholism. Withdrawal symptoms may become apparent. Th is should be observed closely. She has a history of depression, posttraumatic stress disorder, anxie ty disorder and is homeless. This can be addressed through Social Service and perhaps psych counseli ng. She indicates that she may be obtaining status to obtain an apartment first of this next month. This is hopeful. We will continue to follow. /[id number]/MODL
--- NOTE | 2017-11-10 20:20 | GHP ---
[f rep st] HISTORY AND PHYSICAL DATE OF ADMISSION: 11/10/2017 CHIEF COMPLAINT: Fever and pain in her left ring finger. HISTORY OF PRESENT ILLNESS: This is a 57-year-old homeless female who suffers from problems of alcoh olism and drug abuse who presents to the emergency department feeling weak, complaining of pain in he r left finger, and a heavy cough. She admits to being homeless and reports that she has used cocaine and methamphetamine but cannot quantitate or state when she used these last 2 drugs. She has had in creasing pain and increasing cough for the last several days. Cough is productive but she cannot evan racterize the sputum. She reports she has felt weak, tired, and flushed. History more recently indicates that the woman has had an amputation of her distal phalanx of her lef t ring finger due to an infection on 09/14/2017. She then left AMA but then returned. Cultures at t hat time grew MRSA, which was sensitive to clindamycin, tetracycline, and Bactrim. She was placed on doxycycline and ultimately discharged on 09/15/2017. She had left AMA, was readmitted, and then dis charged again on 09/13/2017. Ultimately, she has been homeless since that time, and it is unclear ho w much care she has actually received. She has continued to smoke cigarettes and potentially use tyree gs of methamphetamine and cocaine. PAST MEDICAL HISTORY: 1. Alcoholism, and she reports it is in remission. 2. History of viral pericarditis. 3. COPD secondary to tobacco use. 4. History of hepatitis C. 5. Possible use of IV drugs but unspecified by the patient at this time. PAST SURGICAL HISTORY: The amputation of her left ring finger is all I can find in the EMR and from the patient. MEDICATIONS: Current medications are listed as none. ALLERGIES: No known allergies. SOCIAL HISTORY: She is homeless. She smokes cigarettes, anywhere from 6-12 a day. She is an alcoho lic but she reports she quit 4 months ago. She denies IV drug abuse, although she admits that she jason s used methamphetamine and cocaine but will not specify when. She reports she lives outside and does not go to the shelters. FAMILY HISTORY: Positive for heart disease. PHYSICAL EXAMINATION: GENERAL: This is an ill-appearing unkempt female who appears in moderate dist ress. She is mildly hypertensive, tachycardic, in a sinus rhythm. She has adequate oxygenation on r oom air but is coughing heavily and has a respiratory rate at times of 24. She is also febrile at 38 .8. HEENT: She is quite unkempt. Her mucous membranes are dry but they show no lesions. Neck is s upple without meningismus. Face and scalp are atraumatic. LUNGS: Harsh breath sounds overall with rales located in both lower lobes. No bronchial breath sounds are appreciated. HEART: Regular rate and rhythm and a tachycardia. Singular S1, S2. Otherwise, cannot be characterized due to respirato ry noise. ABDOMEN: Thin. Normoactive bowel sounds to hypoactive. No masses, tenderness, organomeg jeff. EXTREMITIES: She has erythema and tenderness with swelling on the distal aspect of her left ri ng finger. There is no ascending cellulitis or tenderness noted. NEUROLOGIC: She is oriented x3, c omplaining of pain and agitated. Cranial nerves 2-12 intact. LABORATORY: White count elevated at 23,000 with a left shift. Coagulations normal. Lactate 1.8. E lectrolyte panel is normal with normal renal function. Chest x-ray, to my reading, shows bilateral lower lobe infiltrates without consolidation and a right upper lobe infiltrate consistent with pneumonia. ASSESSMENT: 1. Acute sepsis with tachypnea, tachycardia, fever, leukocytosis, and a lactate of 1.8. The sepsis is secondary to her pneumonia. I doubt there is enough infection in her left finger to cause this de gree of agitation and illness. It is possible there is an overriding aspect of drug abuse with metha mphetamine or cocaine and a urine drug screen will be ordered. As she has grown methicillin-resistan t Staph aureus before, she will be placed in isolation and started on Rocephin and doxycycline. This combination will cover her previous skin infection with methicillin-resistant Staphylococcus aureus along with coverage for her community-acquired pneumonia and atypical organisms. 2. Pneumonia, bilateral lower lobes and right upper lobe. This likely accounts for her sepsis. She will also be put on pulmonary care with bronchodilators, steroids, and Mucinex. She lists no medica tions for her pulmonary care, though she likely has chronic obstructive pulmonary disease. 3. Left ring finger infection with possible osteomyelitis. The x-rays do not show bony erosion at t his time. I have spoken with Barry Parry, the magician/illusionist orthopedist, who recommends we begin treatment with antibiotics and assess the wound in [address] Dodson was the surgeon who performed the ini tial amputation and he will be contacted by Dr. Parry. 4. Possible drug abuse of methamphetamine and cocaine. A urine drug screen will be ordered. She de nies use of alcohol, but I will order CIWA protocol as a precaution. 5. Code status is full. 6. Her deep venous thrombosis prophylaxis will be with Lovenox as we are not planning any procedure. She is at moderate to high risk. TIME: This admission required 65 minutes. /[id number]/MODL
[2017-11-10] MEDS: AZITHROMYCIN IV 500 MG in NS 250 ML IV SCH (20:22)
[2017-11-10] MEDS ORDERED: IPRATROPIUM/ALBUTEROL 3 ML DEYVIAL IH SCH (21:00)
[2017-11-10] MEDS: IPRATROPIUM/ALBUTEROL 3 ML DEYVIAL IH SCH (21:25)
[2017-11-10] MEDS: methylPREDNISolone SOD SUCC 125 MG/2 ML VIAL IVP SCH (23:20)
[2017-11-11] MEDS: IPRATROPIUM/ALBUTEROL 3 ML DEYVIAL IH SCH ×6 (01:53→20:48)
[2017-11-11] MEDS: HYDROCODONE/APAP 5/325 TAB PO PRN ×3 (02:10→19:42)
[2017-11-11 04:58] LABS: PLATELET COUNT 259 10^3/uL (150-400)
[2017-11-11] MEDS: methylPREDNISolone SOD SUCC 125 MG/2 ML VIAL IVP SCH ×3 (05:43→17:52)
[2017-11-11] MEDS: VANCOMYCIN HCL/NORMAL SALINE 250 ML IV SCH ×2 (05:45→17:50)
--- NOTE | 2017-11-11 07:10 | PDMN ---
Medical Necessity Medical necessity: Pt meets IP criteria per MD; est los >2 mn for eval/tx of sepsis secondary to pneumonia, as well as L ring finger wound infection w/ possible osteomyelitis; admit for further workup/monitoring, supportive care, IV abx, IVFs, Ortho consult & therapies; hx homelessness, alcoholism, drug abuse , viral pericarditis, COPD & amputation of L ring finger; per H&P & order
[2017-11-11] MEDS: NICOTINE 21 MG/24 HR PATCH TD SCH (10:54)
[2017-11-11] MEDS: MULTIVITAMINS 1 EACH TAB PO SCH (10:55)
[2017-11-11] MEDS: ENOXAPARIN 40 MG/0.4 ML SYR SC SCH (11:02)
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
--- NOTE | 2017-11-11 13:50 | HOSPPROG ---
Hospitalist Progress Note Assessment/Plan: # community-acquired pneumonia - CXR (personally reviewed and interpreted) right sided infiltrate Blood cultures-NGTD -oxygen saturations 93% on room air - continue IV ceftriaxone and azithromycin - monitor cultures # left ring finger cellulitis-status post previous partially amputation - Dr. Parry consulted overnight - continue IV vancomycin for presumed MRSA infection - monitor cultures - monitor clinical progress # acute leukocytosis - secondary to community-acquired pneumonia and cellulitis WBC 23->18 - continue empiric antibiotics outlined above - monitor cultures # polysubstance abuse-including alcohol methamphetamine and occasionally cocaine Patient in mild alcohol withdrawal currently-anxious with tachycardia - schedule beer three times daily as patient has no interest in alcohol cessation # severe protein calorie malnutrition-BMI 19-patient reports extensive weight loss in the past year secondary to acute medical illnesses and poor appetite Complicated by poor access to food - nourishments with meals # nicotine dependence -nicotine patch # homelessness-per patient report 11/16 she has acquired permanent housing # prophylaxis Lovenox # diet regular # disposition-greater than 2 midnights as patient requires IV antibiotics for both pneumonia and cellulitis I have discussed the case with Dr. Parry from Orthopedics-hopeful we can avoid surgery follow the patient's clinical progress closely on IV vancomycin Subjective: Incredibly anxious Objective: Vital Signs Temp Pulse Resp BP Pulse Ox 36.8 C 110 H 18 109/58 L 93 11/11/17 11:21 11/11/17 11:21 11/11/17 11:21 11/11/17 11:21 11/11/17 11:21 Microbiology 11/10/17 19:05 Gram Stain - Final Hand - Anaerobic Tube/Swab Laboratory Results 11/11/17 04:19 11/11/17 04:19 11/10/17 11/11/17 11/12/17 05:59 05:59 05:59 Intake Total 2250 Output Total 300 Balance 1950 PT 12.9 SEC (12.0-15.0) 11/10/17 15:30 INR 0.95 (0.83-1.16) 11/10/17 15:30 - Physical Exam Constitutional: cachectic Eyes: anicteric sclera Ears, Nose, Mouth, Throat: dry mucous membranes Cardiovascular: regular rate and rhythym, tachycardia Respiratory: no respiratory distress Gastrointestinal: normoactive bowel sounds Genitourinary: no bladder fullness Skin: warm Musculoskeletal: other (Left ring finger with partial amputation swollen with erythema) Neurologic: AAOx3, other (Mild tremor) Psychiatric: anxious Lymph, Heme, Immunologic: no cervical LAD ICD10 Worksheet Patient Problems: Problems Problem Status Onset Impetigo Acute Sepsis Acute Wound infection after surgery Acute Depression - Depressive disorder Active Pancreatitis Active Tobacco user Active Alcoholic intoxication Acute Chest pain Acute Dehydration Acute Left leg cellulitis Acute Lower extremity edema Acute Osteomyelitis Acute Pericardial effusion Acute Vomiting Acute
[2017-11-11] MEDS: BEER 1 EACH EA PO SCH ×3 (13:57→19:43)
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
--- NOTE | 2017-11-11 18:43 | SOAPPROG ---
SOAP Progress Note Assessment/Plan: Assessment: Less pain and swelling in finger. able to move without much discomfort. negative knavel signs. Cx finger abscess pending Plan: Assess cxs. No surgery for now. Continue vanco for suspected MRSA 11/11/17 18:40 Subjective: Its feels better Objective: Vital Signs Temp Pulse Resp BP Pulse Ox 36.8 C 128 H 16 122/74 H 95 11/11/17 17:00 11/11/17 17:13 11/11/17 17:13 11/11/17 17:00 11/11/17 17:13 Microbiology 11/10/17 19:05 Gram Stain - Final Hand - Anaerobic Tube/Swab Laboratory Results 11/11/17 04:19 11/11/17 04:19 11/10/17 11/11/17 11/12/17 05:59 05:59 05:59 Intake Total 2250 Output Total 300 Balance 1950 PT 12.9 SEC (12.0-15.0) 11/10/17 15:30 INR 0.95 (0.83-1.16) 11/10/17 15:30 Decreased swelling and erythema around finger. Purulance was unroofed yesterday. Now dry. ICD10 Worksheet Patient Problems: Problems Problem Status Onset Impetigo Acute Sepsis Acute Wound infection after surgery Acute Depression - Depressive disorder Active Pancreatitis Active Tobacco user Active Alcoholic intoxication Acute Chest pain Acute Dehydration Acute Left leg cellulitis Acute Lower extremity edema Acute Osteomyelitis Acute Pericardial effusion Acute Vomiting Acute
[2017-11-11] MEDS: AZITHROMYCIN IV 500 MG in NS 250 ML IV SCH (20:23)
--- NOTE | 2017-11-11 21:24 | SOAPPROG ---
SOAP Progress Note Assessment/Plan: Assessment: Plan: Recommend IV abx and observation. DO not feel debridement is indicated at this time. If improvement stalls, recommend MRI to look for drainable abscess. 11/11/17 21:24 Subjective: "Hi Dr Dodson" Objective: Vital Signs Temp Pulse Resp BP Pulse Ox 36.9 C 120 H 18 130/73 H 95 11/11/17 19:29 11/11/17 20:48 11/11/17 20:48 11/11/17 19:29 11/11/17 20:48 Microbiology 11/11/17 15:23 Gram Stain - Final Leg - Swab 11/10/17 19:05 Gram Stain - Final Hand - Anaerobic Tube/Swab Laboratory Results 11/11/17 04:19 11/11/17 04:19 11/10/17 11/11/17 11/12/17 05:59 05:59 05:59 Intake Total 2250 1427 Output Total 300 Balance 1950 1427 PT 12.9 SEC (12.0-15.0) 11/10/17 15:30 INR 0.95 (0.83-1.16) 11/10/17 15:30 I was asked to see Mary Alice by Dr Parry due to my prior involvement with her and her left ring finger. I purposely left her prior amputation stump loosely closed because she was such a flight risk and I anticipated no followup once she departed [place]. I do not believe she ever took abx after she left hospital in August) She told me today that the wound healed but she never had the stitches removed (never followed up, even with [facility] clinic for this) Regardless she told me her wound was well healed up to a week ago when it became sore and red. Prior to that she was able to make a fist with good motion of the shortened finger. Things got bad over the past week. 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 This morning, she had mild erythema at tip of amputation stump but no digna tenderness along flexor tendons or extensor tendons. No fluctuance noted at pulp and xrays do not show bone involvement. Was able to flex MPJ from 0-80 deg active = passive and pip from 20-60 active = passive. Additionally she feels it has improved overnight. WBC trending down. ICD10 Worksheet Patient Problems: Problems Problem Status Onset Impetigo Acute Sepsis Acute Wound infection after surgery Acute Depression - Depressive disorder Active Pancreatitis Active Tobacco user Active Alcoholic intoxication Acute Chest pain Acute Dehydration Acute Left leg cellulitis Acute Lower extremity edema Acute Osteomyelitis Acute Pericardial effusion Acute Vomiting Acute
[2017-11-11] MEDS: CALCIUM CARBONATE 500 MG CHEWABLE TAB PO PRN (23:11)
[2017-11-11] MEDS: ONDANSETRON DISINTEGRATING 4 MG TAB PO PRN (23:13)
[2017-11-12] MEDS: methylPREDNISolone SOD SUCC 125 MG/2 ML VIAL IVP SCH ×2 (00:31→06:00)
[2017-11-12] MEDS: ZOLPIDEM TARTRATE 5 MG TAB PO PRN ×2 (00:31→20:58)
[2017-11-12] MEDS: IPRATROPIUM/ALBUTEROL 3 ML DEYVIAL IH SCH ×5 (02:33→20:34)
[2017-11-12 05:08] LABS: PLATELET COUNT 274 10^3/uL (150-400)
[2017-11-12] MEDS: VANCOMYCIN HCL/NORMAL SALINE 250 ML IV SCH (06:00)
[2017-11-12] MEDS: NICOTINE 21 MG/24 HR PATCH TD SCH (07:48)
[2017-11-12] MEDS: ENOXAPARIN 40 MG/0.4 ML SYR SC SCH (07:49)
[2017-11-12] MEDS: HYDROCODONE/APAP 5/325 TAB PO PRN ×2 (07:49→15:47)
[2017-11-12] MEDS: MULTIVITAMINS 1 EACH TAB PO SCH (07:50)
--- NOTE | 2017-11-12 08:23 | SOAPPROG ---
SOAP Progress Note Assessment/Plan: Assessment: Less pain and swelling in finger. able to move without much discomfort. negative knavel signs. Cx finger abscess shows streptococcus Plan: No surgery for now. Continue antibiotics. Consider changing for strep coverage. Get ID consult. 11/11/17 18:40 11/12/17 08:20 Subjective: I have less pain and can move it better Objective: Vital Signs Temp Pulse Resp BP Pulse Ox 36.9 C 120 H 20 122/84 H 92 11/12/17 07:40 11/12/17 07:40 11/12/17 07:40 11/12/17 07:40 11/12/17 07:40 Microbiology 11/11/17 15:23 Gram Stain - Final Leg - Swab 11/10/17 19:05 Gram Stain - Final Hand - Anaerobic Tube/Swab Laboratory Results 11/12/17 04:34 11/11/17 04:19 11/11/17 11/12/17 11/13/17 05:59 05:59 05:59 Intake Total 2250 1742 Output Total 300 Balance 1950 1742 PT 12.9 SEC (12.0-15.0) 11/10/17 15:30 INR 0.95 (0.83-1.16) 11/10/17 15:30 Decreased swelling and better motion. No drainage. ICD10 Worksheet Patient Problems: Problems Problem Status Onset Impetigo Acute Sepsis Acute Wound infection after surgery Acute Depression - Depressive disorder Active Pancreatitis Active Tobacco user Active Alcoholic intoxication Acute Chest pain Acute Dehydration Acute Left leg cellulitis Acute Lower extremity edema Acute Osteomyelitis Acute Pericardial effusion Acute Vomiting Acute
[2017-11-12] MEDS: BEER 1 EACH EA PO SCH ×3 (09:29→21:00)
--- NOTE | 2017-11-12 10:23 | HOSPPROG ---
Hospitalist Progress Note Assessment/Plan: 57 yo F admitted sepsis, likely lung source sepsis: septic physiology has likely resolved tachycardia attributable to alcohol withdrawal community-acquired pneumonia - CXR (personally reviewed and interpreted) right sided infiltrate Blood cultures-NGTD -oxygen saturations 93% on room air - continue IV ceftriaxone and azithromycin - monitor cultures left ring finger cellulitis-status post previous partially amputation - Dr. Parry consulted overnight swab w strep so will dc vancomycin will have ID see acute leukocytosis - secondary to community-acquired pneumonia and cellulitis WBC 23->18 - continue empiric antibiotics outlined above - monitor cultures polysubstance abuse-including alcohol methamphetamine and occasionally cocaine Patient in mild alcohol withdrawal currently-anxious with tachycardia - schedule beer three times daily as patient has no interest in alcohol cessation add scheduled librium severe protein calorie malnutrition-BMI 19-patient reports extensive weight loss in the past year secondary to acute medical illnesses and poor appetite Complicated by poor access to food - nourishments with meals nicotine dependence -nicotine patch homelessness-per patient report 11/16 she has acquired permanent housing prophylaxis Lovenox diet regular disposition-greater than 2 midnights as patient requires IV antibiotics for both pneumonia and cellulitis Subjective: cxr w rml infiltrate (interp by me). case d/w ID Objective: Vital Signs Temp Pulse Resp BP Pulse Ox 36.9 C 120 H 20 122/84 H 92 11/12/17 07:40 11/12/17 07:40 11/12/17 07:40 11/12/17 07:40 11/12/17 07:40 Microbiology 11/11/17 15:23 Gram Stain - Final Leg - Swab 11/10/17 19:05 Gram Stain - Final Hand - Anaerobic Tube/Swab Laboratory Results 11/12/17 04:34 11/11/17 04:19 11/11/17 11/12/17 11/13/17 05:59 05:59 05:59 Intake Total 2250 1742 Output Total 300 Balance 1950 1742 PT 12.9 SEC (12.0-15.0) 11/10/17 15:30 INR 0.95 (0.83-1.16) 11/10/17 15:30 - Physical Exam Constitutional: no apparent distress, appears nourished Eyes: PERRL, anicteric sclera Ears, Nose, Mouth, Throat: moist mucous membranes, hearing normal Cardiovascular: regular rate and rhythym, no murmur, rub, or gallop Respiratory: no respiratory distress, no rales or rhonchi Gastrointestinal: normoactive bowel sounds, soft, non-tender abdomen Genitourinary: no bladder fullness Skin: warm, normal color Musculoskeletal: full muscle strength Neurologic: AAOx3 ICD10 Worksheet Patient Problems: Problems Problem Status Onset Impetigo Acute Sepsis Acute Wound infection after surgery Acute Depression - Depressive disorder Active Pancreatitis Active Tobacco user Active Alcoholic intoxication Acute Chest pain Acute Dehydration Acute Left leg cellulitis Acute Lower extremity edema Acute Osteomyelitis Acute Pericardial effusion Acute Vomiting Acute
[2017-11-12] MEDS: CALCIUM CARBONATE 500 MG CHEWABLE TAB PO PRN ×2 (13:17→20:57)
--- NOTE | 2017-11-12 15:33 | GCON ---
[f rep st] CONSULTATION INPATIENT INFECTIOUS DISEASE CONSULTATION REFERRING PHYSICIAN: Jason Coleman MD REASON FOR REFERRAL: Left lower extremity chronic wound, and left hand 4th digit abscess. HISTORY OF PRESENT ILLNESS: Patient is a 57-year-old homeless female who presented to [facility] through the emergency room on 11/10/2017, complaining of a left finger infection. Patient had history in August of osteomyelitis and tenosynovitis of the left ring finger. She had a distal amputation by Dr. Dodson. Patient states that her finger again became swollen, red and painful at the distal end of the amputation site. She had this explored and drained at the bedside. She also pres ented with right middle lobe pneumonia and significant cough with productive sputum. She was placed on ceftriaxone and azithromycin. Cultures from her finger discharge revealed group A streptococcus. Patient also had her noninflamed chronic ulcer of her left lower extremity cultured, and it is growi ng MRSA. I am consulted to ask about antibiotic coverage. PAST MEDICAL HISTORY: 1. 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 2. History of alcoholism. 3. History of viral pericarditis. 4. COPD. 5. Hepatitis C. PAST SURGICAL HISTORY: Status post amputation, left 4th digit. ANTIBIOTICS: 1. Ceftriaxone. 2. Azithromycin. ALLERGIES: No known drug allergies. SOCIAL HISTORY: Patient smokes. She also has a history of alcohol consumption, although states that she has been without alcohol for 4 months. Denies IV drug use. Patient does readily admit to her h omelessness. FAMILY HISTORY: Noncontributory. REVIEW OF SYSTEMS: Other than that detailed above in History of Present illness, a comprehensive 10- system review is negative. PHYSICAL EXAMINATION: VITAL SIGNS: Temperature maximum is 36.9. Temperature current is 36.7. Hear t rate is 123, respiratory rate is 18, blood pressure is 112/69. GENERAL: Patient is a well-formed, well-nourished, somewhat disheveled-appearing older female in no acute distress. She is not toxic i n appearance. She is alert oriented x3. She has a pleasant demeanor. HEENT: Normocephalic for age . Atraumatic. No scleral icterus. No oral lesion. No drainage from the nares. Eyes: Lids and co njunctivae are within normal limits. Pupils are equal and round bilaterally. NECK: Supple. No men ingismus. LUNGS: Clear to auscultation bilaterally with some crackles on the right side. Good effort. HEART: Regular rate and rhythm. No murmur, rub, or gallop noted. SKIN: Warm and dry to the touch. Patient has a callused distal tip of the amputation site of the left 4th digit. No p urulence is able to be expressed currently. Mild erythema on the digit. Patient also has a chronic open ulceration that is shallow on the mid-carroll aspect of the left lower extremity. This ulcer is wi thout erythema or purulence. MUSCULOSKELETAL: No other muscle belly tenderness is noted. No joint line effusion or arthritis seen. NEURO: Cranial nerves 2-12 seem to be intact. Peripheral sensatio n seems intact in extremities. LABORATORY DATA: Patient has a CBC dated 11/12/2017, shows a white blood cell count of 18.77, hemogl obin of 9.0, hematocrit of 28.3, platelet count of 274. Differential is left-shifted with 88% segment ed neutrophils. Serum chemistries on 11/11/2017, are all within normal limits. MICROBIOLOGIC DATA: Patient has blood cultures dated 11/10/2017, which are no growth to date. Hand culture dated 11/10/2017, is growing group A strep. Leg swab dated 11/11/2017, is growing MRSA. ASSESSMENT: 1. Group A streptococcus infection of the left 4th digit amputation site. Patient is on ceftriaxone and azithromycin for a mild pneumonia on the right side. This will also cover group A streptococcus infection. I do not think there needs to be any further expansion of antibiotic therapy for this. 2. Community-acquired pneumonia. Covered well with ceftriaxone and azithromycin. Would continue th is regimen. 3. Methicillin-resistant Staphylococcus aureus culture result from the left lower extremity chronic ulceration. Clinically this ulcer is not infected. The methicillin-resistant Staphylococcus aureus likely represents colonization at this site. PLAN: 1. Continue both ceftriaxone and azithromycin. 2. Observe the improvement along all 3 fronts for this patient. The left lower extremity ulcer will likely persist, given its likely etiology is venous insufficiency. Compression is going to be a evan llenge in this patient, given her homelessness. If desired, we can follow patient up in the wound in. /[id number]/MODL
[2017-11-12] MEDS: ONDANSETRON DISINTEGRATING 4 MG TAB PO PRN ×2 (15:47→20:58)
[2017-11-12] MEDS: AZITHROMYCIN IV 500 MG in NS 250 ML IV SCH (22:46)
[2017-11-13] MEDS: IPRATROPIUM/ALBUTEROL 3 ML DEYVIAL IH SCH ×2 (05:40→10:07)
[2017-11-13 08:13] LABS: PLATELET COUNT 379 10^3/uL (150-400)
--- NOTE | 2017-11-13 09:46 | SOAPPROG ---
SOAP Progress Note Assessment/Plan: Assessment/Plan: Left ring finger less pain and swelling in finger Able to move without much discomfort, negative knavel signs Cultures finger abscess shows streptococcus No surgery for now Continue antibiotics Conservative treatment Ortho to follow Subjective: Patient states her left ring finger is feeling better, less pain. Objective: Vital Signs Temp Pulse Resp BP Pulse Ox 37.3 C 107 H 16 121/80 H 84 L 11/13/17 08:00 11/13/17 08:00 11/13/17 08:00 11/13/17 08:00 11/13/17 08:00 Microbiology 11/11/17 15:23 Gram Stain - Final Leg - Swab 11/10/17 19:05 Gram Stain - Final Hand - Anaerobic Tube/Swab Laboratory Results 11/13/17 07:52 11/11/17 04:19 11/12/17 11/13/17 11/14/17 05:59 05:59 05:59 Intake Total 1742 720 Balance 1742 720 PT 12.9 SEC (12.0-15.0) 11/10/17 15:30 INR 0.95 (0.83-1.16) 11/10/17 15:30 Physical exam of the Left hand ring finger: Decreased swelling and better motion. No drainage. No erythema. Normal sensation to light touch in the LUE. Distal pulse present in the LUE. ICD10 Worksheet Patient Problems: Problems Problem Status Onset Impetigo Acute Sepsis Acute Wound infection after surgery Acute Depression - Depressive disorder Active Pancreatitis Active Tobacco user Active Alcoholic intoxication Acute Chest pain Acute Dehydration Acute Left leg cellulitis Acute Lower extremity edema Acute Osteomyelitis Acute Pericardial effusion Acute Vomiting Acute
[2017-11-13] MEDS: MULTIVITAMINS 1 EACH TAB PO SCH (09:47)
[2017-11-13] MEDS: ENOXAPARIN 40 MG/0.4 ML SYR SC SCH (09:48)
[2017-11-13] MEDS: NICOTINE 21 MG/24 HR PATCH TD SCH (09:48)
[2017-11-13] MEDS: BEER 1 EACH EA PO SCH ×2 (10:00→16:15)
[2017-11-13] MEDS: HYDROCODONE/APAP 5/325 TAB PO PRN (11:05)
[2017-11-13 11:16] VITALS: BP 94/56
--- NOTE | 2017-11-13 11:57 | CPEKG ---
Heart Rate: 116 RR Interval: 517 P-R Interval: 164 QRSD Interval: 76 QT Interval: 320 QTC Interval: 445 P Elkins: 67 QRS Elkins: 16 T Wave Elkins: 50 EKG Severity - OTHERWISE NORMAL ECG - EKG Impression: SINUS TACHYCARDIA EKG Impression: SIMILAR FINDINGS WERE NOTED IN 08/03 Electronically Signed By: Nelson Lee 14-Nov-2017 12:48:03
[2017-11-13] MEDS ORDERED: AZITHROMYCIN IV 500 MG in NS 250 ML IV SCH (12:00)
[2017-11-13] MEDS ORDERED: AZITHROMYCIN 250 MG TAB PO SCH (14:30)
--- NOTE | 2017-11-13 15:33 | HOSPPROG ---
Hospitalist Progress Note Assessment/Plan: 57 yo F admitted sepsis, likely lung source sepsis: septic physiology has likely resolved tachycardia attributable to alcohol withdrawal community-acquired pneumonia - CXR (personally reviewed and interpreted) right sided infiltrate Blood cultures-NGTD -oxygen saturations 93% on room air - continue IV ceftriaxone and azithromycin - monitor cultures left ring finger cellulitis-status post previous partially amputation - Dr. Parry consulted overnight swab w strep so will dc vancomycin will have ID see acute leukocytosis - secondary to community-acquired pneumonia and cellulitis WBC 23->18 - continue empiric antibiotics outlined above - monitor cultures polysubstance abuse-including alcohol methamphetamine and occasionally cocaine Patient in mild alcohol withdrawal currently-anxious with tachycardia - schedule beer three times daily as patient has no interest in alcohol cessation add scheduled librium severe protein calorie malnutrition-BMI 19-patient reports extensive weight loss in the past year secondary to acute medical illnesses and poor appetite Complicated by poor access to food - nourishments with meals nicotine dependence -nicotine patch homelessness-per patient report 11/16 she has acquired permanent housing prophylaxis Lovenox diet regular disposition-home today > 30 minutes Subjective: flat affect. afebrile Objective: Vital Signs Temp Pulse Resp BP Pulse Ox 37.1 C 112 H 20 94/56 L 90 L 11/13/17 11:15 11/13/17 11:15 11/13/17 11:15 11/13/17 11:15 11/13/17 11:15 Microbiology 11/11/17 15:23 Gram Stain - Final Leg - Swab 11/10/17 19:05 Gram Stain - Final Hand - Anaerobic Tube/Swab Wound Culture - Final Streptococcus Pyogenes Grp A Staphylococcus Sp Coag Neg Laboratory Results 11/13/17 07:52 11/11/17 04:19 11/12/17 11/13/17 11/14/17 05:59 05:59 05:59 Intake Total 1742 720 Balance 1742 720 PT 12.9 SEC (12.0-15.0) 11/10/17 15:30 INR 0.95 (0.83-1.16) 11/10/17 15:30 - Physical Exam Constitutional: no apparent distress, appears nourished Eyes: PERRL, anicteric sclera Ears, Nose, Mouth, Throat: moist mucous membranes, hearing normal Cardiovascular: regular rate and rhythym, no murmur, rub, or gallop Respiratory: no respiratory distress, no rales or rhonchi Gastrointestinal: normoactive bowel sounds, soft, non-tender abdomen Genitourinary: no bladder fullness, no bladder tenderness Skin: warm, normal color Musculoskeletal: full muscle strength, no muscle tenderness Neurologic: AAOx3, sensation intact bilaterally Psychiatric: interacting appropriately ICD10 Worksheet Patient Problems: Problems Problem Status Onset Impetigo Acute Sepsis Acute Wound infection after surgery Acute Depression - Depressive disorder Active Pancreatitis Active Tobacco user Active Alcoholic intoxication Acute Chest pain Acute Dehydration Acute Left leg cellulitis Acute Lower extremity edema Acute Osteomyelitis Acute Pericardial effusion Acute Vomiting Acute
--- NOTE | 2017-11-13 15:45 | ASMTCMCOM ---
CM Note CM Note Notes: Spoke w/RN, pt will dc home today. DMITRI contacted Annette Salcido [phone], she confirms pt does have the keys to an apt in [place] that is hers but as of yet, there is no furniture. DMITRI also contacted officer Rupert who will take pt to apt. Prescription for antibiotic is filled and given to patient. DC Plan: Independent Date Signed: 11/13/2017 03:45 PM Electronically Signed By:America Fischer RN
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
[2017-11-13 16:06] LABS: HIV TYPE 1 AND 2 NEGATIVE (NEGATIVE)
--- NOTE | 2017-11-13 16:06 | ASMTCMCOM ---
CM Note CM Note Notes: Officer Emery here to take pt home, pt confirms to CM that she has her keys to her new apt. Date Signed: 11/13/2017 04:05 PM Electronically Signed By:America Fischer RN
--- NOTE | 2017-11-13 16:30 | PCMIDPN ---
Assessment/Plan: #Sepsis physiology at admit. She did have a marked leukocytosis and fever. Possible source PNA, wound on L leg without surrounding cellulitis. MRSA likely colonizer. No obvious finger abn remains today but culture at admit showed GAS. WBC improving on ceftriaxone + azithromycin. She also rec'd a couple doses of vancomycin, D#4 of antibiotics total --could complete therapy (covering resolved hand infection + PNA) with Augmentin for total of 5-7 days, day 4 today --call ID for additional questions #MRSA colonization: contact precautions. Subjective: "I always get worse when I am in the hospital" L leg wound painful + cough no rash Objective: Vital Signs Temp Pulse Resp BP Pulse Ox 37.1 C 112 H 20 94/56 L 90 L 11/13/17 11:15 11/13/17 11:15 11/13/17 11:15 11/13/17 11:15 11/13/17 11:15 Microbiology 11/11/17 15:23 Gram Stain - Final Leg - Swab 11/10/17 19:05 Gram Stain - Final Hand - Anaerobic Tube/Swab Wound Culture - Final Streptococcus Pyogenes Grp A Staphylococcus Sp Coag Neg Laboratory Results 11/13/17 07:52 11/11/17 04:19 11/12/17 11/13/17 11/14/17 05:59 05:59 05:59 Intake Total 1742 720 Balance 1742 720 - Physical Exam General Appearance: alert, thin, non-toxic Respiratory: coarse breath sounds, No accessory muscle use, No crackles Cardiac/Chest: regular rate, rhythm Extremities: other (open wound L calf superficial without surrounding erythema) , No inflammation (of hand, multiple prior cuts, amputation site L finger c/d/i) Abdomen: non-tender, soft Pelvic Exam: No mcintyre Skin: No rash Neuro/Psych: alert, oriented x 3, other (irritable) - Time Spent With Patient Time Spent with Patient: greater than 35 minutes (care coordinated with Dr. Coleman) Time Spent with Patient: Greater than 35 minutes spent on this patients care, greater than 50% of time spent counseling, educating, and coordinating care regarding the above mentioned plan. ICD10 Worksheet Patient Problems: Problems Problem Status Onset Depression - Depressive disorder Active Pancreatitis Active Tobacco user Active Alcoholic intoxication Acute Chest pain Acute Dehydration Acute Impetigo Acute Left leg cellulitis Acute Lower extremity edema Acute Osteomyelitis Acute Pericardial effusion Acute Sepsis Acute Vomiting Acute Wound infection after surgery Acute
--- NOTE | 2017-11-13 16:48 | GDS ---
[f rep st] DISCHARGE SUMMARY DISCHARGE DIAGNOSES: 1. Community-acquired pneumonia. 2. Alcoholism. 3. Recent osteomyelitis of the finger, status post amputation. 4. History of viral pericarditis. 5. Chronic obstructive pulmonary disease. Please see admission history by Dr. Michele Cervantes. The patient had a fever and pain in her finger. The fever was relatively unremarkable and followed by Ortho, who felt that surgical management was not indicated. She also had a chest x-ray demonstrating a right mid lung infiltrate. She received c eftriaxone and azithromycin. This was felt to be adequate coverage for her finger, which grew out St reptococcal pyrogenes. The patient was afebrile for the bulk of her hospital stay and in room air. She was anxious for discharge, discharged to complete Augmentin following on course to complete for h er finger. She is followed by ID who agreed with this plan. The patient was given supplemental beer and Librium and did not have alcohol withdrawal while here. TIME SPENT: Greater than 30 minutes spent on this discharge. /[id number]/MODL
--- NOTE | 2017-11-17 16:08 | PQFORM ---
PHYSICIAN QUERY FORM Needs Your Response This query form is being sent to you to assure this patient record is coded properly. Please respond to the question below: HYDRAULIC PILE HAMMER OPERATOR QUESTION: Dr Coleman Sepsis was documented through out the patients record but not mentioned in the Discharge Summary. Did this patient have Sepsis? ___X Yes ___ No ___ Other (Please specify ) ___ Unable to determine Thank You Fernanda STOVER Tobacco Prevention Health Educator INSTRUCTIONS FOR RESPONSE: Answer question by clicking on the "Edit Document" button. Move cursor to area below the stars. When complete, hit "Save." Click on the "Sign" button, then click "Sign" again. Type in your PIN and hit "Enter." MTDD
--- NOTE | 2017-11-17 16:10 | PQFORM ---
PHYSICIAN QUERY FORM Needs Your Response This query form is being sent to you to assure this patient record is coded properly. Please respond to the question below: CUSTOMER QUALITY ENGINEER QUESTION: Dr Coleman Severe Protein Calorie Malnutrition with BMI of 19 was documented through out the progress notes but not mentioned in the Discharge Summary. Does this patient have Severe Protein Calorie Malnutrition ? __X_ Yes ___ No ___ Other (Please Specify ) ___ Unable to determine Thank You Fernanda STOVER Sample Case Porter INSTRUCTIONS FOR RESPONSE: Answer question by clicking on the "Edit Document" button. Move cursor to area below the stars. When complete, hit "Save." Click on the "Sign" button, then click "Sign" again. Type in your PIN and hit "Enter." MTDD
== END 2017-11-13 16:05 | disposition home or self-care (01) | DRG 720 ==
LOC: EDUNIT# → EDBD → OBSVTOIN 16:04 → F3E 17:41 → UNDODISIN 11-13 13:49
PROVIDERS: ADMIT Internal Medicine Pulmonary Disease; ATTEND Internal Medicine
DX: A41.9 Sepsis, unspecified organism (principal); J18.9 Pneumonia, unspecified organism; L03.012 Cellulitis of left finger; E43 Unspecified severe protein-calorie malnutrition; Z89.022 Acquired absence of left finger(s); Z59.0 Homelessness; Z68.1 Body mass index [BMI] 19.9 or less, adult; J44.9 Chronic obstructive pulmonary disease, unspecified; B19.20 Unspecified viral hepatitis C without hepatic coma; I25.10 Atherosclerotic heart disease of native coronary artery without angina pectoris; F14.10 Cocaine abuse, uncomplicated; F15.10 Other stimulant abuse, uncomplicated; Z86.14 Personal history of Methicillin resistant Staphylococcus aureus infection; I25.2 Old myocardial infarction; F17.210 Nicotine dependence, cigarettes, uncomplicated
CPT/HCPCS: 80305; 96374; J0456; J0696; J1650; J2930; J3370

== ENCOUNTER 2017-12-31 01:13 | Emergency (ER) | payer MEDICAID ==
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
[2017-12-31 01:33] VITALS: BP 134/98
== END 2017-12-31 02:05 | disposition home or self-care (01) ==
DX: S93.401A Sprain of unspecified ligament of right ankle, initial encounter (principal); I25.2 Old myocardial infarction; F17.200 Nicotine dependence, unspecified, uncomplicated; J44.9 Chronic obstructive pulmonary disease, unspecified; X58.XXXA Exposure to other specified factors, initial encounter

== ENCOUNTER 2018-02-23 03:09 | Emergency (ER) | payer MEDICAID ==
[2018-02-23 03:14] VITALS: BP 143/79
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
== END 2018-02-23 03:22 | disposition home or self-care (01) ==
LOC: EEVIPCON 03:09
DX: L55.9 Sunburn, unspecified (principal); R59.1 Generalized enlarged lymph nodes; I25.2 Old myocardial infarction; F17.200 Nicotine dependence, unspecified, uncomplicated

== ENCOUNTER 2018-08-08 21:53 | Emergency (ER) | payer MEDICAID ==
[2018-08-08 22:06] VITALS: BP 115/79
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
[2018-08-08] MEDS ORDERED: LORazepam 2 MG/ML INJ IM ONE (22:15)
[2018-08-08] MEDS ORDERED: LORazepam 2 MG/ML INJ ONE (22:17)
== END 2018-08-08 22:26 | disposition home or self-care (01) ==
LOC: EDUNIT#
DX: T59.894A Toxic effect of other specified gases, fumes and vapors, undetermined, initial encounter (principal); Z59.0 Homelessness; Y92.26 Movie house or cinema as the place of occurrence of the external cause; Y93.9 Activity, unspecified; Y99.9 Unspecified external cause status
CPT/HCPCS: J2060

== ENCOUNTER 2018-10-04 20:14 | Emergency (ER) | payer MEDICAID ==
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
[2018-10-05 03:55] VITALS: BP 107/61
== END 2018-10-05 03:55 | disposition home or self-care (01) ==
LOC: EDUNIT#
DX: R07.81 Pleurodynia (principal); F10.920 Alcohol use, unspecified with intoxication, uncomplicated

== ENCOUNTER 2018-10-06 17:08 | Emergency (ER) | payer MEDICAID ==
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
[2018-10-06] MEDS ORDERED: CHLORDIAZEPOXIDE 25MG PREPK#6 BTL TAKEHOME ONE (18:26)
[2018-10-06 18:58] VITALS: BP 130/88
== END 2018-10-06 19:41 | disposition home or self-care (01) ==
LOC: EDUNIT#
DX: F10.120 Alcohol abuse with intoxication, uncomplicated (principal)